=== PATIENT | female | born 1930 | race Caucasian/White ===

== ENCOUNTER 2017-08-12 12:48 | Outpatient (CLI) | payer MEDICARE, MEDICAID ==
--- NOTE | 2017-08-12 17:56 | XRAY Report ---
DATE OF SERVICE: 08/12/2017 EXAM: THREE VIEW THORACIC SPINE CLINICAL INDICATION: Pain, status post fall. FINDINGS: Frontal, lateral, swimmers views of the thoracic spine demonstrate moderate degenerative d isk disease, with degenerative levoscoliosis of the thoracolumbar junction. There is no evidence of compression f racture. No paraspinal hematoma is identified. IMPRESSION: MODERATE DEGENERATIVE DISK DISEASE. NO EVIDENCE OF FRACTURE. TD: 08/12/2017 17:04
== END 2017-08-12 12:49 | disposition home or self-care (01) ==
LOC: DI 12:48
PROVIDERS: ATTEND Family Medicine
DX: M51.34 Other intervertebral disc degeneration, thoracic region (principal); M41.85 Other forms of scoliosis, thoracolumbar region
CPT/HCPCS: 72070

== ENCOUNTER 2018-08-28 12:53 | Outpatient (CLI) | payer MEDICARE, MEDICAID | END 2018-08-28 12:54 | disposition critical access hospital (66) | LOC: EMS 12:53 | PROVIDERS: ATTEND Surgery | DX: S89.92XA Unspecified injury of left lower leg, initial encounter (principal); W01.0XXA Fall on same level from slipping, tripping and stumbling without subsequent striking against object, initial encounter; Y93.01 Activity, walking, marching and hiking; Y92.511 Restaurant or cafe as the place of occurrence of the external cause | CPT/HCPCS: A0425; A0429 ==

== ENCOUNTER 2018-08-28 13:14 | Inpatient (IN) | payer MEDICARE, MEDICAID ==
[2018-08-28 14:33] LABS: BASOPHILS # (AUTO) 0.1 10^3/uL (0.0-0.1); BASOPHILS % (AUTO) 0.6 %; EOSINOPHILS # (AUTO) 0.1 10^3/uL (0.0-0.7); EOSINOPHILS % (AUTO) 0.5 %; HGB - HEMOGLOBIN 12.4 g/dL (12.0-16.0); LYMPHOCYTES # (AUTO) 2.1 10^3/uL (1.5-3.5); LYMPHOCYTES % (AUTO) 13.1 %; MEAN CORPUSCULAR HEMOGLOBIN 27.3 pg (27.0-31.0); MEAN CORPUSCULAR HGB CONC 33.7 g/dL (32.0-36.0); MEAN PLATELET VOLUME 7.1 fL (7.9-10.8); MONOCYTES # (AUTO) 1.1 10^3/uL (0.0-1.0); MONOCYTES % (AUTO) 6.5 %; NEUTROPHILS # (AUTO) 12.9 10^3/uL (1.5-6.6); NEUTROPHILS % (AUTO) 79.3 %; PLT - PLATELET COUNT 628 10^3/uL (130-450); RED BLOOD COUNT 4.54 10^6/uL (4.20-5.40); RED CELL DISTRIBUTION WIDTH 16.1 % (12.0-15.0); WHITE BLOOD COUNT 16.3 x10^3/uL (4.8-10.8)
[2018-08-28 14:45] LABS: CALCIUM 9.9 mg/dL (8.5-10.3); CREATININE 1.1 mg/dL (0.4-1.0)
--- NOTE | 2018-08-28 15:00 | ED Physician Documentation ---
History of Present Illness - Stated complaint Stated Complaint: GLF - Chief complaint Chief Complaint: Trauma Ext - Additonal information Additional information: hx from pt healthy 88 f was head into [place] with friends to celebrate her birthday tripped and landed on L hip pain and unable to move no head neck chest abd injury ]no blood thinners was well prior lives alone Review of Systems Constitutional: denies: Fever Cardiac: denies: Chest pain / pressure Respiratory: denies: Dyspnea GI: denies: Abdominal Pain : reports: Other (2 prior bladder surgeries) Skin: denies: Laceration (s) Musculoskeletal: reports: Joint pain (L hip) Neurologic: denies: Headache, Head injury Endocrine: denies: Easy bruising / bleeding Immunocompromised: denies: Immunocompromised PD PAST MEDICAL HISTORY - Past Medical History Past Medical History: No Cardiovascular: None Respiratory: Pneumonia Neuro: None Endocrine/Autoimmune: None GI: None 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 : Incontinence, Frequency HEENT: Chronic vision loss Psych: None Musculoskeletal: None Derm: None Other Past Medical History: calcium in urine - Past Surgical History Past Surgical History: Yes General: Appendectomy HEENT: Cataracts - Present Medications Home Medications: Ambulatory Orders Medication Instructions Recorded Confirmed Biotin 5,000 mcg PO DAILY 05/10/13 08/28/18 Cholecalciferol (Vitamin D3) 400 unit PO DAILY 05/10/13 08/28/18 [Vitamin D] Dextran 70/Hypromellose 1 each OP DAILY 05/10/13 08/28/18 [Artificial Tears] Lactobacillus Rhamnosus GG 1 each PO DAILY 05/10/13 08/28/18 [Probiotic] Multivitamin [Multivitamins] 1 each PO DAILY 05/10/13 08/28/18 Oregano Oil [Oil of Oregano] 1,500 mg PO DAILY 05/10/13 08/28/18 Ubidecarenone [Coq-10] 100 mg PO DAILY 05/10/13 08/28/18 Vitamin B Complex [B Complex] 1 each PO DAILY 05/10/13 08/28/18 Vitamin E 400 unit PO DAILY 05/10/13 08/28/18 - Allergies Allergies/Adverse Reactions: Allergies Allergy/AdvReac Type Severity Reaction Status Date / Time nitrofurantoin Allergy Rash Verified 08/28/18 13:22 macrocrystalline * [From Macrodantin] - Social History Does the pt smoke?: No Smoking Status: Never smoker Does the pt drink ETOH?: Yes Does the pt have substance abuse?: No - Immunizations Immunizations are current?: No - POLST Patient has POLST: No PD ED PE NORMAL - Vitals Vital signs reviewed: Yes - General General: Alert and oriented X 3 - HEENT HEENT: Atraumatic - Neck Neck: No bony TTP - Cardiac Cardiac: RRR - Respiratory Respiratory: No respiratory distress - Abdomen Abdomen: Soft, Non tender - Extremities Extremities: Other (L hip TTP laterally short and ext rotated, MSV intact) - Neuro Neuro: Alert and oriented X 3, 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, No motor deficit, No sensory deficit, Normal speech Eye Opening: Spontaneous Motor: Obeys Commands Verbal: Oriented GCS Score: 15 Results - Vitals Vitals: Vital Signs - 24 hr 08/28/18 13:15 Temperature 36.1 C L Heart Rate 74 Respiratory 18 Rate Blood Pressure 168/86 H O2 Saturation 99 Oxygen O2 Source Room air - EKG (time done) 1404 Rate: Rate (enter#) (73) Rhythm: NSR, Other (occ PVCs) Ischemia: Non specific changes Other comments: Other comments (artifact) - Labs Labs: Laboratory Tests 08/28/18 08/28/18 08/28/18 14:09 14:09 14:09 WBC 16.3 H RBC 4.54 Hgb 12.4 Hct 36.8 L MCV 81.0 MCH 27.3 MCHC 33.7 RDW 16.1 H Plt Count 628 H MPV 7.1 L Neut # (Auto) 12.9 H Lymph # (Auto) 2.1 [place]hing # (Auto) 1.1 H Eos # (Auto) 0.1 Baso # (Auto) 0.1 Absolute Nucleated RBC 0.00 Nucleated RBC % 0.0 Sodium 137 Potassium 4.2 Chloride 95 L Carbon Dioxide 29 Anion Gap 13.0 BUN 20 Creatinine 1.1 H Estimated GFR (MDRD) 47 L Glucose 102 H Calcium 9.9 Blood Type O POSITIVE Antibody Screen NEGATIVE - Rads (name of study) CXR Radiology: See rad report (chonic lung dz, small right pleural effusion) hip Radiology: See rad report (L femoral neck fx) PD MEDICAL DECISION MAKING - ED course ED course: + hip fx spoke to ortho Dr Maharaj at 1520 spoke to hospitalist at 1540 pt NPO since yesterday pt and friends updated I offered the pt pain medication multiple imes and she declined every time Departure - Departure Disposition: 66 [facility] DC/Xfer Clinical Impression: Hip fracture Qualifiers: Encounter type: initial encounter Fracture type: closed Laterality: left Qualified Code(s): S72.002A - Fracture of unspecified part of neck of left femur, initial encounter for closed fracture Condition: Fair Discharge Date/Time: 08/28/18 17:36
--- NOTE | 2018-08-28 15:05 | XRAY Report ---
Reason: fall L hip short and ext rotated Procedure Date: 08/28/2018 Accession Number: [id number] / [id number] Procedure: XR - Hip w/Pelvis 2-3V LT CPT Code: FULL RESULT: EXAM: LEFT HIP AND PELVIS RADIOGRAPHY EXAM DATE: 08/28/2018 02:53 PM. HISTORY: Left hip pain. COMPARISONS: None. TECHNIQUE: 1 view of the pelvis and 1 view of the hip. FINDINGS: Bones: Evaluation of the left hip is somewhat limited due to internal rotation. Displaced transcervical left femoral neck fracture is suggested. Joints: Minor degenerative changes are seen in the hips. Moderate degenerative changes are noted in the lower lumbar spine. Soft Tissues: Normal. No soft tissue swelling. IMPRESSION: Transcervical left femoral neck fracture suggested. Visualization is somewhat limited due to internal rotation. RADIA
--- NOTE | 2018-08-28 15:07 | XRAY Report ---
Reason: preop Procedure Date: 08/28/2018 Accession Number: [id number] / [id number] Procedure: XR - Chest 1 View X-Ray CPT Code: 50923 FULL RESULT: EXAM: CHEST RADIOGRAPHY. EXAM DATE: 08/28/2018 02:33 PM. CLINICAL HISTORY: Left hip fracture, preoperative evaluation. COMPARISON: Thoracic spine 2 view 08/12/2017 12:59 PM, chest 2 view PA/lateral 05/10/2013 11:25 AM, hip with pelvis 2-3 views 08/28/2018 2:33 PM. TECHNIQUE: 1 view. FINDINGS: Lungs/Pleura: Chronic coarsened interstitial markings, slightly more pronounced compared to 2012. Blunting of the right costophrenic angle consistent with a small right pleural effusion. No pneumothorax is detected. Mediastinum: Within exam limitations, the cardiomediastinal contour is normal. Other: None. IMPRESSION: Coarse interstitial markings most suggestive of chronic lung disease. Interval development of a small right pleural effusion. RADIA
[2018-08-28] MEDS ORDERED: ONDANSETRON 4 MG/2 ML VIAL IVP PRN (16:09)
[2018-08-28] MEDS ORDERED: ZOLPIDEM 5 MG TABLET PO PRN (16:09)
[2018-08-28] MEDS ORDERED: SODIUM CHLORIDE FLUSH 0.9% 10 ML SYRINGE IVP PRN (16:09)
[2018-08-28] MEDS ORDERED: cloNIDine 0.1 MG TABLET PO PRN (16:18)
--- NOTE | 2018-08-28 16:57 | HISTORY & PHYSICAL EXAMINATION ---
Chief Complaint - Chief Complaint Chief Complaint: fall, hip pain History of Present Illness - History of Present Illness HPI Comment/Other: Ms. Lundberg is 88-yrs old female with a PMH significant for vertigo, CKD, breast cancer, status post right mastectomy on 2004, chronic malnutrition, who present ER complain of right hip pain after her fall. Pt report her birthday was yesterday. Today she and her friend come to [employer] restaurant at [place]. She Was tripped over a bbea outside the door, fell onto left hip on concrete. She denies hitting head or other injuries. She also denies loss of conscious when she had a fall. She report she was so painful and she can not move outward rotation of left foot, unable to bear weight. Xray of hip reveals transcervical left femoral neck of fracture. Her lab reveals elevated WBC. Except mild elevated BP, pt is hemodynamically stable. Dr. Maharaj was called and consulted, planned to have surgery on tomorrow. History - Past Medical History Cardiovascular: reports: None Respiratory: reports: Pneumonia Neuro: reports: None Endocrine/Autoimmune: reports: None GI: reports: None ANESTHESIA ATTENDING: reports: None : reports: Incontinence, Frequency HEENT: reports: Chronic vision loss Psych: reports: None Musculoskeletal: reports: None Derm: reports: None MRSA Hx?: No Other Past Medical History: calcium in urine - Past Surgical History General: reports: Appendectomy HEENT: reports: Cataracts - Family & Social History Family History: Mother: , Cancer, Father: , CAD, COPD/Emphysema Family History Comment/Other: pt is living on [place] by her self. she is independent. Social History Notes: she denies alcohol, drug, cigarett smoker - POLST Patient has POLST: No Meds/Allgy - Home Medications Home Medications: Ambulatory Orders Medication Instructions Recorded Confirmed Biotin 5,000 mcg PO DAILY 05/10/13 08/28/18 Cholecalciferol (Vitamin D3) 400 unit PO DAILY 05/10/13 08/28/18 [Vitamin D] Dextran 70/Hypromellose 1 each OP DAILY 05/10/13 08/28/18 [Artificial Tears] Lactobacillus Rhamnosus GG 1 each PO DAILY 05/10/13 08/28/18 [Probiotic] Multivitamin [Multivitamins] 1 each PO DAILY 05/10/13 08/28/18 Oregano Oil [Oil of Oregano] 1,500 mg PO DAILY 05/10/13 08/28/18 Ubidecarenone [Coq-10] 100 mg PO DAILY 05/10/13 08/28/18 Vitamin B Complex [B Complex] 1 each PO DAILY 05/10/13 08/28/18 Vitamin E 400 unit PO DAILY 05/10/13 08/28/18 - Allergies Allergies/Adverse Reactions: Allergies Allergy/AdvReac Type Severity Reaction Status Date / Time nitrofurantoin Allergy Rash Verified 08/28/18 13:22 macrocrystalline * [From Macrodantin] Review of Systems - Constitutional Constitutional: denies: Fatigue, Fever, Chills, Malaise, Weakness, Poor appetite, Diaphoresis, Night sweats - Eyes Eyes: denies: Pain, Irritation, Amaurosis, Blurred vision, Spots in vision, Fi eld loss, Vision loss, Dipolpia - Ears, Nose & Throat Ears, Nose & Throat: denies: Ear pain, Hearing loss, Hearing aids, Tinnitus, Vertigo, Nasal pain, Nasal discharge, Nosebleeds, Nasal obstruction, Nasal congestion, Postnasal drainage, Dentures, Sore throat, Hoarseness, Mouth lesions, Bleeding gums - Cardiovascular Cariovascular: denies: Irregular heart rate, Palpitations, Chest pain, Edema, Lightheadedness, Syncope, Exertional dyspnea, Decr. exercise tolerance - Respiratory Respiratory: denies: Cough, Sputum production, Wheezing, Snoring, Hemoptysis, Orthopnea, SOB at rest, SOB with exertion - Gastrointestinal Gastrointestinal: denies: Abdominal pain, Abdominal distention, Constipation, Diarrhea, Change in bowel habits, Rectal bleeding, Black stools, Bloody stools, Nausea, Vomiting, Bile emesis, Coffee grounds emesis, Reflux/heartburn - Genitourinary Genitourinary: denies: Dysuria, Frequency, Urgency, Hematuria, Incontinence, Flank pain, Nocturia, Urethral discharge - Musculoskeletal Musculoskeletal: reports: Limited range of motion, Joint pain. denies: Muscle pain, Back pain, Muscle aches, Stiffness, Muscle weakness, Gout - Integumentary Integumentary: denies: Rash, Pruritis, Lesions, Dryness, Lumps, Acne, Pigment changes, Nail changes - Neurological Neurological: denies: General weakness, Focal weakness, Headache, Dizziness, Numbness, Memory problems, Pre-existing deficit, Abnormal gait, Seizures, Incoordination, Slurred speech - Psychiatric Psychiatric: denies: Depression, Anxiety, Suicidal, Delusions, Hallucinations, Homicidal - Endocrine Endocrine: denies: Polyuria, Polydypsia, Polyphagia, Intolerance to cold - Hematologic/Lymphatic Hematologic/Lymphatic: denies: Anemia, Bruising, Petechiae, Blood clots, Lymphadenopathy, Bleeding tendencies Prior Level of Functionality: independent Exam - Vital Signs Reviewed Vital Signs: Yes Vital Signs: Vital Signs x48h Temp Pulse Resp BP Pulse Ox 08/28/18 13:15 36.1 C L 74 18 168/86 H 99 - Physical Exam General Appearance: positive: No acute distress, Alert. negative: Lethargic Eyes Bilateral: positive: Normal inspection, PERRL, No lid inflammation, Conjunctivae nml ENT: positive: ENT inspection nml, Pharynx nml, No signs of dehydration. negative: Purulent nasal drainage, Pharyngeal erythema, Oral lesions Neck: positive: Nml inspection, Thyroid nml, No JVD, Trachea midline. negative: Thyromegaly, Lymphadenopathy (R), Lymphadenopathy (L), Stiff neck, Swelling/bruising, Tracheal deviation Respiratory: positive: Chest non-tender, No respiratory distress, Breath sounds nml. negative: Wheezes, Rales, Rhonchi Cardiovascular: positive: Regular rate & rhythm, No murmur, No gallop. negative: Irregularly irregular, Extrasystoles, Tachycardia, PMI displaced laterally, JVD present, Systolic murmur, Diastolic murmur Peripheral Pulses: positive: 2+ Abdomen: positive: Non-tender, No organomegaly, Nml bowel sounds, No distention. negative: Tenderness, Rebound Back: positive: Nml inspection. negative: CVA tenderness (R), CVA tenderness (L) Skin: positive: Color nml, No rash, Warm, Dry. negative: Cyanosis, Diaphoresis, Pallor Extremities: positive: Nml appearance. negative: Non-tender, Full ROM, Pedal edema, Calf tenderness, Joint swelling, Kim's sign/cords Neurologic/Psychiatric: positive: Oriented x3, Sensation nml, Mood/affect nml. negative: Weakness, Sensory loss, Facial droop, Slurred/abnml speech, Depressed mood/affect Sepsis Event Note (H) - Evaluation Current Stage of Sepsis: Ruled out Conclusion/Plan - Problem List (1) Hip fracture Conclusion/Plan: pt had fall, and xray reveals left femoral neck fracture orthopedics was consulted, will followup and plan to have surgery tomorrow. pain control IVF of NS for NPO after midnight pt had no hx of cardiac problem, her revised cardiac risk index for pre- operative risk is low, at 0.4% Qualifiers: Encounter type: initial encounter Fracture type: closed Laterality: left Qualified Code(s): S72.002A - Fracture of unspecified part of neck of left femur, initial encounter for closed fracture (2) CKD (chronic kidney disease) Conclusion/Plan: stable, CKD is stage 3 gently hydration with IVF of NS, when pt is on NPO status hold nephrotoxical agents daily lab monitor (3) HTN (hypertension) Conclusion/Plan: pt has no hx of HTN, today she had slight elevated BP, it may relate to her hip pain pain control PRN of Clonidine vital monitor (4) Chronic vertigo Conclusion/Plan: pt report she had hx of chronic Vertigo, which she state it may contribute to her fall fall precaution Antivert PRN (5) Elevated white blood cell count Conclusion/Plan: pt had elevated WBC to 16, CXR reveal unremarkable, UA is pending. it may relative to today's distress and anxiety from fall. pt denies fever, chill. daily lab monitor, and followup UA (6) Do not intubate, cardiopulmonary resuscitation (CPR)-only code status Conclusion/Plan: pt clearly request DNR - Lab Results Fish Bones: 08/28/18 14:09 08/28/18 14:09 Core Measures - Anticipated LOS I expect patient to be DC'd or transferred within 96 hours.: Yes - DVT/VTE - Prophylaxis VTE/DVT Device ordered at admit?: Yes VTE/DVT Prophylaxis med ordered at admit?: Yes
[2018-08-28] MEDS ORDERED: SODIUM CHLORIDE 0.9% 1,000 ML IV SCH (17:00)
[2018-08-28] MEDS ORDERED: MECLIZINE 12.5 MG TABLET PO PRN (18:26)
[2018-08-28] MEDS: oxyCODONE 5 MG TABLET PO PRN (18:32)
[2018-08-28] MEDS: ACETAMINOPHEN 325 MG TABLET PO PRN ×2 (18:32→23:55)
[2018-08-28] MEDS: SODIUM CHLORIDE 0.9% 1,000 ML IV SCH (18:33)
[2018-08-28] MEDS: SODIUM CHLORIDE FLUSH 0.9% 10 ML SYRINGE IVP SCH ×2 (18:56→23:39)
[2018-08-28 19:04] LABS: BILIRUBIN,URINE NEGATIVE (NEGATIVE); GLUCOSE, URINE (UA) NEGATIVE (NEGATIVE); KETONES,URINE (UA) NEGATIVE (NEGATIVE); LEUKOCYTE ESTERASE, URINE NEGATIVE (NEGATIVE); NITRITE,URINE NEGATIVE (NEGATIVE); OCCULT BLOOD,URINE NEGATIVE (NEGATIVE); PH,URINE 6.5 PH (5.0-7.5); PROTEIN,URINE NEGATIVE (NEGATIVE); UROBILINOGEN,URINE 0.2 (NORMAL) E.U./dL (NORMAL)
[2018-08-28 19:16] LABS: BACTERIA,URINE Many /HPF (None Seen); CLARITY,URINE HAZY (CLEAR); RBC,URINE None Seen /HPF (0-5); SQUAMOUS EPITHELIAL CELL,UR NONE SEEN (<= Few)
[2018-08-28] MEDS: MORPHINE 2 MG/ML CARPUJECT IVP PRN (19:16)
[2018-08-28] MEDS: FAMOTIDINE 20 MG TABLET PO SCH (20:11)
[2018-08-29] MEDS: oxyCODONE 5 MG TABLET PO PRN ×2 (00:08→23:54)
[2018-08-29 06:06] LABS: BASOPHILS # (AUTO) 0.1 10^3/uL (0.0-0.1); BASOPHILS % (AUTO) 0.8 %; EOSINOPHILS # (AUTO) 0.2 10^3/uL (0.0-0.7); EOSINOPHILS % (AUTO) 1.6 %; HGB - HEMOGLOBIN 10.7 g/dL (12.0-16.0); MEAN CORPUSCULAR HEMOGLOBIN 26.3 pg (27.0-31.0); MEAN CORPUSCULAR HGB CONC 31.5 g/dL (32.0-36.0); MEAN CORPUSCULAR VOLUME 83.4 fL (81.0-99.0); MEAN PLATELET VOLUME 7.1 fL (7.9-10.8); MONOCYTES % (AUTO) 8.1 %; NEUTROPHILS # (AUTO) 9.3 10^3/uL (1.5-6.6); NEUTROPHILS % (AUTO) 73.5 %; PLT - PLATELET COUNT 529 10^3/uL (130-450); RED BLOOD COUNT 4.09 10^6/uL (4.20-5.40); RED CELL DISTRIBUTION WIDTH 16.3 % (12.0-15.0); WHITE BLOOD COUNT 12.6 x10^3/uL (4.8-10.8)
[2018-08-29 06:09] LABS: ALBUMIN 2.9 g/dL (3.2-5.5); ALBUMIN/GLOBULIN RATIO 0.9 (1.0-2.2); BILIRUBIN,TOTAL 0.6 mg/dL (0.2-1.0); CALCIUM 8.7 mg/dL (8.5-10.3); CREATININE 1.2 mg/dL (0.4-1.0); TOTAL PROTEIN 6.2 g/dL (6.7-8.2)
[2018-08-29] MEDS: SODIUM CHLORIDE 0.9% 1,000 ML IV SCH ×2 (06:48→20:20)
[2018-08-29] MEDS ORDERED: SODIUM CHLORIDE 0.9% 1,000 ML IV SCH (07:24)
[2018-08-29] MEDS: LACTOBACILLUS RHAMNOSUS GG CAPSULE PO SCH (08:09)
[2018-08-29] MEDS: MULTIVITAMIN TABLET PO SCH (08:10)
[2018-08-29] MEDS: CARBOXYMETHYLCELLULOSE OPHTH DROPS EACHEYE SCH (08:10)
[2018-08-29] MEDS: CHOLECALCIFEROL 400 UNIT TABLET PO SCH (08:10)
[2018-08-29] MEDS: FAMOTIDINE 20 MG TABLET PO SCH (08:10)
[2018-08-29] MEDS: POLYETHYLENE GLYCOL 3350 17 GM PACKET PO SCH (08:11)
[2018-08-29] MEDS: cefTRIAXone 1 GM in SODIUM CHLORIDE 0.9% MINIBAG 100 ML IV SCH (08:17)
[2018-08-29] MEDS: BIOTIN 5000 MCG PO SCH (08:19)
[2018-08-29] MEDS: TOCOPHERYL 400 UNIT CAPSULE PO SCH (08:20)
[2018-08-29] MEDS: SODIUM CHLORIDE FLUSH 0.9% 10 ML SYRINGE IVP SCH ×3 (08:20→23:53)
[2018-08-29] MEDS ORDERED: cefTRIAXone 1 GM VIAL IVP SCH (09:00)
--- NOTE | 2018-08-29 09:38 | ANESTHESIA ---
Pre-Anesthesia VS, & Labs - Diagnosis left hip fracture - Procedure left hip hemiprosthesis Vital Signs: Temp Pulse Resp BP Pulse Ox 36.3 C L 79 20 141/64 H 93 08/29/18 07:37 08/29/18 07:37 08/29/18 07:37 08/29/18 07:37 08/29/18 07:37 Height 5 ft 4 in Weight (kg) 45 kg Body Mass Index 17.0 - NPO >8 hours - Is Patient ?: Not Applicable - Lab Results Current Lab Results: Laboratory Tests 08/29/18 05:46: Sodium 132 L, Potassium 4.3, Chloride 99 L, Carbon Dioxide 25, Anion Gap 8.0, BUN 21 H, Creatinine 1.2 H, Estimated GFR (MDRD) 42 L, Glucose 101 H, Calcium 8.7, Magnesium 2.0, Total Bilirubin 0.6, AST 20, ALT 12, Alkaline Phosphatase 62, Total Protein 6.2 L, Albumin 2.9 L, Globulin 3.3, Albumin/Globulin Ratio 0.9 L 08/29/18 05:46: WBC 12.6 H, RBC 4.09 L, Hgb 10.7 L, Hct 34.1 L, MCV 83.4, MCH 26.3 L, MCHC 31.5 L, RDW 16.3 H, Plt Count 529 H, MPV 7.1 L, Neut # (Auto) 9.3 H , Lymph # (Auto) 2.0, [place] # (Auto) 1.0, Eos # (Auto) 0.2, Baso # (Auto) 0.1, Absolute Nucleated RBC 0.00, Nucleated RBC % 0.0 08/28/18 14:09: Blood Type O POSITIVE, Antibody Screen NEGATIVE 08/28/18 14:09: Sodium 137, Potassium 4.2, Chloride 95 L, Carbon Dioxide 29, Anion Gap 13.0, BUN 20, Creatinine 1.1 H, Estimated GFR (MDRD) 47 L, Glucose 102 H, Calcium 9.9 08/28/18 14:09: WBC 16.3 H, RBC 4.54, Hgb 12.4, Hct 36.8 L, MCV 81.0, MCH 27.3, MCHC 33.7, RDW 16.1 H, Plt Count 628 H, MPV 7.1 L, Neut # (Auto) 12.9 H, Lymph # (Auto) 2.1, [place] # (Auto) 1.1 H, Eos # (Auto) 0.1, Baso # (Auto) 0.1, Absolute Nucleated RBC 0.00, Nucleated RBC % 0.0 Lab results reviewed: Yes Fish Bones: 08/29/18 05:46 08/29/18 05:46 Home Medications and Allergies Active Medications Acetaminophen (Tylenol) 650 mg PO Q4HR PRN PRN Reason: Pain 1 to 4 Last Admin: 08/28/18 23:55 Dose: 650 mg Carboxymethylcellulose (Refresh 1% Ophth Drops) 1 drops EACHEYE DAILY [facility] Last Admin: 08/29/18 08:10 Dose: 1 drops Cholecalciferol (Vitamin D3) 400 unit PO DAILY [facility] Last Admin: 08/29/18 08:10 Dose: 400 unit Clonidine HCl (Catapres) 0.1 mg PO BID PRN PRN Reason: Hypertensive Emergency Enoxaparin Sodium (Lovenox) 30 mg SUBQ DAILY [facility] Famotidine (Pepcid) 20 mg PO DAILY [facility] Last Admin: 08/29/18 08:10 Dose: 20 mg Sodium Chloride (Normal Saline 0.9%) 1,000 mls @ 100 mls/hr IV .Q10H [facility] Ceftriaxone Sodium 1 gm/ (Sodium Chloride) 100 mls @ 200 mls/hr IV Q24H [facility] Last Infusion: 08/29/18 08:47 Dose: Infused Lactobacillus Rhamnosus (Culturelle) 1 cap PO DAILY [facility] Last Admin: 08/29/18 08:09 Dose: 1 cap Meclizine HCl (Antivert) 12.5 mg PO Q6HR PRN PRN Reason: Dizziness Morphine Sulfate (Morphine (Carpuject)) 2 mg IVP Q2HR PRN PRN Reason: Pain 8 to 10 Last Admin: 08/28/18 19:16 Dose: 2 mg Multivitamins (Theragran) 1 tab PO DAILY [facility] Last Admin: 08/29/18 08:10 Dose: 1 tab Ondansetron HCl (Zofran Inj) 4 mg IVP Q6HR PRN PRN Reason: Nausea / Vomiting Oxycodone HCl (Roxicodone) 5 mg PO Q4HR PRN PRN Reason: Pain 5 to 7 Last Admin: 08/29/18 00:08 Dose: 5 mg Patient Own Med( (Biotin 5,000 Mcg)) 1 each PO DAILY [facility] Last Admin: 08/29/18 08:19 Dose: Not Given Patient Own Med ( (Vitamin B Complex)) 1 each PO DAILY [facility] Last Admin: 08/29/18 08:19 Dose: Not Given Polyethylene Glycol (Miralax) 17 gm PO DAILY [facility] Last Admin: 08/29/18 08:11 Dose: 17 gm Sodium Chloride (Normal Saline Flush 0.9%) 10 ml IVP PRN PRN PRN Reason: NEEDED PER PROVIDER ORDERS Last Admin: 08/28/18 18:33 Dose: 10 ml Sodium Chloride (Normal Saline Flush 0.9%) 10 ml IVP 0100,0900,1700 [facility] Last Admin: 08/29/18 08:20 Dose: Not Given Vitamin E (Vitamin E) 400 unit PO DAILY [facility] Last Admin: 08/29/18 08:20 Dose: Not Given Zolpidem Tartrate (Ambien) 5 mg PO QPM PRN PRN Reason: Insomnia Biotin 5,000 mcg PO DAILY 05/10/13 Cholecalciferol (Vitamin D3) [Vitamin D] 400 unit PO DAILY 05/10/13 Dextran 70/Hypromellose [Artificial Tears] 1 each OP DAILY 05/10/13 Lactobacillus Rhamnosus GG [Probiotic] 1 each PO DAILY 05/10/13 Multivitamin [Multivitamins] 1 each PO DAILY 05/10/13 Oregano Oil [Oil of Oregano] 1,500 mg PO DAILY 05/10/13 Ubidecarenone [Coq-10] 100 mg PO DAILY 05/10/13 Vitamin B Complex [B Complex] 1 each PO DAILY 05/10/13 Vitamin E 400 unit PO DAILY 05/10/13 Allergies/Adverse Reactions: Allergies Allergy/AdvReac Type Severity Reaction Status Date / Time nitrofurantoin Allergy Rash Verified 08/28/18 13:22 macrocrystalline * [From Macrodantin] Anes History & Medical History - Anesthetic History Anesthesia Complications: reports: No previous complications Family history of Anesthesia Complications: Denies Family history of Malignant Hyperthermia: Denies - Medical History Cardiovascular: reports: None Pulmonary: reports: Pneumonia Gastrointestinal: reports: None Urinary: reports: Incontinence, Frequency Neuro: reports: None Musculoskeletal: reports: None Endocrine/Autoimmune: reports: None Blood Disorders: reports: None Skin: reports: None Smoking Status: Never smoker Other Past Medical History: calcium in urine - Surgical History General: Appendectomy Eyes Ears Nose Throat (EENT): Cataracts Urologic: Bladder surgery Exam General: Alert, Oriented x3, Cooperative, No acute distress Dental: Other (crowns) Mouth Openin Fingerbreadth Neck Mobility: Normal Mallampati classification: II Thyromental Distance: 4-6 cm Respiratory: Lungs clear, Normal breath sounds, No respiratory distress, No a ccessory muscle use Cardiovascular: Regular rate, Normal S1, Normal S2, No murmurs Mental/Cognitive Status: Alert/Oriented X3, Normal for patient Plan Anesthesia Type: General Consent for Procedure(s) Verified and Reviewed: No Code Status: Attempt Resuscitation ASA classification: 2-Mild systemic disease Is this case an emergency?: No
[2018-08-29] MEDS: MORPHINE 2 MG/ML CARPUJECT IVP PRN (09:47)
[2018-08-29] MEDS ORDERED: BUPIVACAINE 0.5%-EPI 1:200000 PF 30 ML VIAL ONE (10:48)
[2018-08-29] MEDS ORDERED: BUPIVACAINE 0.5%-EPI 1:200000 PF 30 ML VIAL SUBQ ONE ×2 (12:03)
[2018-08-29] MEDS ORDERED: SUGAMMADEX 200 MG/2 ML VIAL IVP ONE (12:53)
--- NOTE | 2018-08-29 12:53 | OPERATIVE REPORT ---
Operative Report - General Admit Date: 08/28/18 Procedure Date: 08/29/18 Planned Procedure: endoprosthetic replacement of left hip Pre-Op Diagnosis: left hip femoral neck fracture Procedure Performed: endoprosthetic replacement of left hip Post Op Diagnosis: same - Procedure Note Primary Surgeon: jemima Anesthesia Provider: meli Anesthesia Technique: General ET tube Estimated Blood Loss (mL): 40
[2018-08-29] MEDS ORDERED: LACTATED RINGERS 1,000 ML IV ONE ×2 (12:55→13:01)
--- NOTE | 2018-08-29 13:50 | PROVIDER PROGRESS NOTE ---
Subjective - Prog Note Date Prog Note Date: 08/29/18 - Subjective Pt reports feeling: Improved Subjective: pt report surgeon already saw her and will have surgery today morning. She report she had pain at her hip only when she moved her leg. She denies chest pain, fever, chill, SOB. Current Medications - Current Medications Current Medications: Active Medications Acetaminophen (Tylenol) 650 mg PO Q4HR PRN PRN Reason: Pain 1 to 4 Last Admin: 08/28/18 23:55 Dose: 650 mg Carboxymethylcellulose (Refresh 1% Ophth Drops) 1 drops EACHEYE DAILY [facility] Last Admin: 08/29/18 08:10 Dose: 1 drops Cholecalciferol (Vitamin D3) 400 unit PO DAILY [facility] Last Admin: 08/29/18 08:10 Dose: 400 unit Clonidine HCl (Catapres) 0.1 mg PO BID PRN PRN Reason: Hypertensive Emergency Famotidine (Pepcid) 20 mg PO DAILY [facility] Last Admin: 08/29/18 08:10 Dose: 20 mg Sodium Chloride (Normal Saline 0.9%) 1,000 mls @ 100 mls/hr IV .Q10H [facility] Ceftriaxone Sodium 1 gm/ (Sodium Chloride) 100 mls @ 200 mls/hr IV Q24H [facility] Last Infusion: 08/29/18 08:47 Dose: Infused Lactobacillus Rhamnosus (Culturelle) 1 cap PO DAILY [facility] Last Admin: 08/29/18 08:09 Dose: 1 cap Meclizine HCl (Antivert) 12.5 mg PO Q6HR PRN PRN Reason: Dizziness Morphine Sulfate (Morphine (Carpuject)) 2 mg IVP Q2HR PRN PRN Reason: Pain 8 to 10 Last Admin: 08/29/18 09:47 Dose: 2 mg Multivitamins (Theragran) 1 tab PO DAILY [facility] Last Admin: 08/29/18 08:10 Dose: 1 tab Ondansetron HCl (Zofran Inj) 4 mg IVP Q6HR PRN PRN Reason: Nausea / Vomiting Last Admin: 08/29/18 09:55 Dose: 4 mg Oxycodone HCl (Roxicodone) 5 mg PO Q4HR PRN PRN Reason: Pain 5 to 7 Last Admin: 08/29/18 00:08 Dose: 5 mg Patient Own Med( (Biotin 5,000 Mcg)) 1 each PO DAILY [facility] Last Admin: 08/29/18 08:19 Dose: Not Given Patient Own Med ( (Vitamin B Complex)) 1 each PO DAILY [facility] Last Admin: 08/29/18 08:19 Dose: Not Given Patient Own Med ( Oregano Oil [Oil Of Oregano] 1,500 Mg) 1 each PO DAILY [facility] Patient Own Med ( Ubidecarenone [Coq- 10] 100 Mg) 1 each PO DAILY [facility] Polyethylene Glycol (Miralax) 17 gm PO DAILY [facility] Last Admin: 08/29/18 08:11 Dose: 17 gm Sodium Chloride (Normal Saline Flush 0.9%) 10 ml IVP PRN PRN PRN Reason: NEEDED PER PROVIDER ORDERS Last Admin: 08/28/18 18:33 Dose: 10 ml Sodium Chloride (Normal Saline Flush 0.9%) 10 ml IVP 0100,0900,1700 [facility] Last Admin: 08/29/18 08:20 Dose: Not Given Vitamin E (Vitamin E) 400 unit PO DAILY [facility] Last Admin: 08/29/18 08:20 Dose: Not Given Zolpidem Tartrate (Ambien) 5 mg PO QPM PRN PRN Reason: Insomnia Biotin 5,000 mcg PO DAILY 05/10/13 Cholecalciferol (Vitamin D3) [Vitamin D] 400 unit PO DAILY 05/10/13 Dextran 70/Hypromellose [Artificial Tears] 1 each OP DAILY 05/10/13 Lactobacillus Rhamnosus GG [Probiotic] 1 each PO DAILY 05/10/13 Multivitamin [Multivitamins] 1 each PO DAILY 05/10/13 Oregano Oil [Oil of Oregano] 1,500 mg PO DAILY 05/10/13 Ubidecarenone [Coq-10] 100 mg PO DAILY 05/10/13 Vitamin B Complex [B Complex] 1 each PO DAILY 05/10/13 Vitamin E 400 unit PO DAILY 05/10/13 Objective - Vital Signs/Intake & Output Vital Signs: Vital Signs x48h Temp Pulse Pulse Resp BP BP Pulse Ox 08/29/18 13:40 36.8 C 65 14 132/49 H 100 08/29/18 13:35 36.6 C 68 15 142/53 H 100 08/29/18 13:30 36.6 C 66 15 136/44 H 100 08/29/18 13:25 36.5 C 68 15 114/74 100 08/29/18 13:20 36.6 C 68 14 135/56 H 99 08/29/18 13:15 36.7 C 65 15 127/55 L 99 08/29/18 13:10 36.5 C 66 14 135/61 H 100 08/29/18 13:05 36.5 C 66 15 135/61 H 100 08/29/18 13:00 36.5 C 65 15 133/53 H 100 08/29/18 12:55 36.8 C 67 12 121/50 L 99 08/29/18 10:32 36.6 C 72 20 111/48 L 92 08/29/18 07:37 36.3 C L 79 20 141/64 H 93 Intake & Output: Intake & Output 08/26/18 08/27/18 08/28/18 08/29/18 23:59 23:59 23:59 23:59 Intake Total 800 1018.75 Output Total 825 325 Balance -25 693.75 - Objective General Appearance: positive: No acute distress, Alert. negative: Lethargic Eyes Bilateral: positive: Normal inspection, PERRL, No lid inflammation, Conjunctivae nml ENT: positive: ENT inspection nml, Pharynx nml, No signs of dehydration. negative: Purulent nasal drainage, Pharyngeal erythema, Oral lesions Neck: positive: Nml inspection, Thyroid nml, No JVD, Trachea midline. negative: Thyromegaly, Lymphadenopathy (R), Lymphadenopathy (L), Stiff neck, Swelling/bruising, Tracheal deviation Respiratory: positive: Chest non-tender, No respiratory distress, Breath sounds nml. negative: Wheezes, Rales, Rhonchi Cardiovascular: positive: Regular rate & rhythm, No murmur, No gallop. negative: Irregularly irregular, Extrasystoles, Tachycardia, Bradycardia, JVD present, Systolic murmur, Diastolic murmur Peripheral Pulses: 2+ Radial (R), 2+ Radial (L), 2+ Dorsalis pedis (R), 2+ Dorsalis pedis (L) Abdomen: positive: Non-tender, No organomegaly, Nml bowel sounds, No distention. negative: Tenderness, Guarding, Rebound Back: positive: Nml inspection. negative: CVA tenderness (R), CVA tenderness (L) Skin: positive: Color nml, No rash, Warm, Dry. negative: Cyanosis, Diaphoresis, Pallor Extremities: positive: Nml appearance. negative: Calf tenderness, Joint swelling, Kim's sign/cords Neurologic/Psychiatric: positive: Oriented x3, Sensation nml, Mood/affect nml. negative: Weakness, Sensory loss, Facial droop, Slurred/abnml speech, Depressed mood/affect - Lab Results Fish Bones: 08/29/18 05:46 08/29/18 05:46 Other Labs: Lab Results x24hrs 08/29/18 08/29/18 08/28/18 Range/Units 05:46 05:46 18:45 WBC 12.6 H (4.8-10.8) x10^3/uL RBC 4.09 L (4.20-5.40) 10^6/uL Hgb 10.7 L (12.0-16.0) g/dL Hct 34.1 L (37.0-47.0) % MCV 83.4 (81.0-99.0) fL MCH 26.3 L (27.0-31.0) pg MCHC 31.5 L (32.0-36.0) g/dL RDW 16.3 H (12.0-15.0) % Plt Count 529 H (130-450) 10^3/uL MPV 7.1 L (7.9-10.8) fL Neut # (Auto) 9.3 H (1.5-6.6) 10^3/uL Lymph # (Auto) 2.0 (1.5-3.5) 10^3/uL [place] # (Auto) 1.0 (0.0-1.0) 10^3/uL Eos # (Auto) 0.2 (0.0-0.7) 10^3/uL Baso # (Auto) 0.1 (0.0-0.1) 10^3/uL Absolute Nucleated RBC 0.00 x10^3/uL Nucleated RBC % 0.0 /100WBC Sodium 132 L (135-145) mmol/L Potassium 4.3 (3.5-5.0) mmol/L Chloride 99 L (101-111) mmol/L Carbon Dioxide 25 (21-32) mmol/L Anion Gap 8.0 (6-13) BUN 21 H (6-20) mg/dL Creatinine 1.2 H (0.4-1.0) mg/dL Estimated GFR (MDRD) 42 L (>89) Glucose 101 H (70-100) mg/dL Calcium 8.7 (8.5-10.3) mg/dL Magnesium 2.0 (1.7-2.8) mg/dL Total Bilirubin 0.6 (0.2-1.0) mg/dL AST 20 (10-42) IU/L ALT 12 (10-60) IU/L Alkaline Phosphatase 62 (42-121) IU/L Total Protein 6.2 L (6.7-8.2) g/dL Albumin 2.9 L (3.2-5.5) g/dL Globulin 3.3 (2.1-4.2) g/dL Albumin/Globulin Ratio 0.9 L (1.0-2.2) Urine Color LT. YELLOW Urine Clarity HAZY (CLEAR) Urine pH 6.5 (5.0-7.5) PH Ur Specific [place] 1.015 (1.002-1.030) Urine Protein NEGATIVE (NEGATIVE) mg/dL Urine Glucose (UA) NEGATIVE (NEGATIVE) mg/dL Urine Ketones NEGATIVE (NEGATIVE) mg/dL Urine Occult Blood NEGATIVE (NEGATIVE) Urine Nitrite NEGATIVE (NEGATIVE) Urine Bilirubin NEGATIVE (NEGATIVE) Urine Urobilinogen 0.2 (NORMAL) (NORMAL) E.U./dL Ur Leukocyte Esterase NEGATIVE (NEGATIVE) Urine RBC None Seen (0-5) /HPF Urine WBC 0-3 (0-5) /HPF Ur Squamous Epith Cells NONE SEEN (<= Few) Urine Bacteria Many H (None Seen) /HPF Urine Culture Comments INDICATED Blood Type Antibody Screen 08/28/18 08/28/18 08/28/18 Range/Units 14:09 14:09 14:09 WBC 16.3 H (4.8-10.8) x10^3/uL RBC 4.54 (4.20-5.40) 10^6/uL Hgb 12.4 (12.0-16.0) g/dL Hct 36.8 L (37.0-47.0) % MCV 81.0 (81.0-99.0) fL MCH 27.3 (27.0-31.0) pg MCHC 33.7 (32.0-36.0) g/dL RDW 16.1 H (12.0-15.0) % Plt Count 628 H (130-450) 10^3/uL MPV 7.1 L (7.9-10.8) fL Neut # (Auto) 12.9 H (1.5-6.6) 10^3/uL Lymph # (Auto) 2.1 (1.5-3.5) 10^3/uL [place] # (Auto) 1.1 H (0.0-1.0) 10^3/uL Eos # (Auto) 0.1 (0.0-0.7) 10^3/uL Baso # (Auto) 0.1 (0.0-0.1) 10^3/uL Absolute Nucleated RBC 0.00 x10^3/uL Nucleated RBC % 0.0 /100WBC Sodium 137 (135-145) mmol/L Potassium 4.2 (3.5-5.0) mmol/L Chloride 95 L (101-111) mmol/L Carbon Dioxide 29 (21-32) mmol/L Anion Gap 13.0 (6-13) BUN 20 (6-20) mg/dL Creatinine 1.1 H (0.4-1.0) mg/dL Estimated GFR (MDRD) 47 L (>89) Glucose 102 H (70-100) mg/dL Calcium 9.9 (8.5-10.3) mg/dL Magnesium (1.7-2.8) mg/dL Total Bilirubin (0.2-1.0) mg/dL AST (10-42) IU/L ALT (10-60) IU/L Alkaline Phosphatase (42-121) IU/L Total Protein (6.7-8.2) g/dL Albumin (3.2-5.5) g/dL Globulin (2.1-4.2) g/dL Albumin/Globulin Ratio (1.0-2.2) Urine Color Urine Clarity (CLEAR) Urine pH (5.0-7.5) PH Ur Specific [place] (1.002-1.030) Urine Protein (NEGATIVE) mg/dL Urine Glucose (UA) (NEGATIVE) mg/dL Urine Ketones (NEGATIVE) mg/dL Urine Occult Blood (NEGATIVE) Urine Nitrite (NEGATIVE) Urine Bilirubin (NEGATIVE) Urine Urobilinogen (NORMAL) E.U./dL Ur Leukocyte Esterase (NEGATIVE) Urine RBC (0-5) /HPF Urine WBC (0-5) /HPF Ur Squamous Epith Cells (<= Few) Urine Bacteria (None Seen) /HPF Urine Culture Comments Blood Type O POSITIVE Antibody Screen NEGATIVE ABX Reporting Has patient been on IV antibiotics over the past 48 hours?: Yes Sepsis Event Note (H) - Evaluation Current Stage of Sepsis: Ruled out Assessment/Plan - Problem List (1) Hip fracture Impression: pt has planned surgery today, will followup continue pain control pt had fall, and xray reveals left femoral neck fracture orthopedics was consulted, will followup and plan to have surgery tomorrow. pain control IVF of NS for NPO after midnight pt had no hx of cardiac problem, her revised cardiac risk index for pre- operative risk is low, at 0.4% Qualifiers: Encounter type: initial encounter Fracture type: closed Laterality: left Qualified Code(s): S72.002A - Fracture of unspecified part of neck of left femur, initial encounter for closed fracture (2) CKD (chronic kidney disease) Conclusion/Plan: stable, at CKD stage 3 continue IVF of NS lab monitor stable, CKD is stage 3 gently hydration with IVF of NS, when pt is on NPO status hold nephrotoxical agents daily lab monitor (3) HTN (hypertension) Conclusion/Plan: stable, continue vital monitor pt has no hx of HTN, today she had slight elevated BP, it may relate to her hip pain pain control PRN of Clonidine vital monitor (4) Chronic vertigo Conclusion/Plan: stable, continue: fall precaution, Antivert PRN pt report she had hx of chronic Vertigo, which she state it may contribute to her fall fall precaution Antivert PRN (5) Elevated white blood cell count Conclusion/Plan: better but still at WBC at 12. pt is found to have UTI, treat with Rocephin pt had elevated WBC to 16, CXR reveal unremarkable, UA is pending. it may relative to today's distress and anxiety from fall. pt denies fever, chill. daily lab monitor, and followup UA (6) UTI pt has elevated WBC, UA reveals many bacterial UTI treated with Rocephin, followup UA culture Qualifiers: Encounter type: initial encounter Fracture type: closed Laterality: left Qualified Code(s): S72.002A - Fracture of unspecified part of neck of left femur, initial encounter for closed fracture
--- NOTE | 2018-08-29 14:10 | XRAY Report ---
Reason: post op Procedure Date: 08/29/2018 Accession Number: [id number] / [id number] Procedure: XR - Hip w/Pelvis 2-3V LT CPT Code: FULL RESULT: EXAM: LEFT HIP AND PELVIS RADIOGRAPHY EXAM DATE: 08/29/2018 01:37 PM. HISTORY: Post op. COMPARISONS: Hip with pelvis 2-3 views left 08/28/2018 2:33 PM. TECHNIQUE: 1 view of the pelvis and 1 view of the hip. FINDINGS: There has been interval left total hip arthroplasty without evidence of hardware failure and in appropriate position. Lucency below the distal tip of the prosthetic stem is noted, correlate to surgical technique. Soft Tissues: 16 cm diameter gaseous lucency projecting over the lower abdomen, incompletely imaged without bowel pattern should be correlated to possible surgical pneumoperitoneum. IMPRESSION: Status post left total hip arthroplasty. RADIA
[2018-08-29] MEDS ORDERED: ENOXAPARIN 30 MG/0.3 ML SYRINGE SUBQ SCH (17:00)
[2018-08-29] MEDS: CALCIUM CARBONATE CHEW 500 MG TABLET PO SCH (20:21)
[2018-08-29 21:51] LABS: HGB - HEMOGLOBIN 11.4 g/dL (12.0-16.0)
--- NOTE | 2018-08-30 02:25 | OPERATIVE REPORT ---
DATE OF SERVICE: 08/29/2018 Physician: Brandee Maharaj MD PREOPERATIVE DIAGNOSIS: Displaced left femoral neck fracture. POSTOPERATIVE DIAGNOSIS: Displaced left femoral neck fracture. PROCEDURE PERFORMED: Cemented left endoprosthetic hip replacement. OPERATING SURGEON: Brandee Maharaj MD ANESTHESIA: General by Margarita Dolan CRNA. INDICATIONS FOR SURGERY: Patient is an 88-year-old female who suffered a ground level fall injuring her hip last evening and admitted to the hospital with hip pain, unable to ambulate. She states that the injury was a simple fall. The patient lives alone, but has friends locally and a son who lives elsewhere. The patient has previously been an ambulator using a walker, sometimes has weakness, but has no mental decline and states that she desires to have her hip fixed. Her past medical history an d exam are documented in her record. DESCRIPTION OF OPERATIVE PROCEDURE: The patient was taken to the operating room, given a general ane sthetic in the supine position. She was positioned right lateral decubitus with the left hip up and sterilely prepped and draped in standard fashion. After a surgical timeout, a posterior approach was made to the hip with an approximately 6 inch incision and dissection through short rotators of the p osterior hip after division of fascia katelin in that area. The hip was entered, hematoma evacuated, th e femoral head removed. The trial reduction of a head component was trialed and 46 mm was the most a ppropriate component size. Femoral neck osteotomy was made, after which reaming and broaching were u ndertaken to accommodate a small size 7 Echo stem. This was trialed with heads and a standard neck l ength and was very satisfactory restoring muscle tension, length of the limb and stability. The tria l components were removed. The joint and the femur were flushed thoroughly. A cement-retaining plug was placed in the femur and an Echo size 7 stem was [address] in place. The endoprosthetic head was assembled with a 46 mm outer diameter and once inserted on the stem, was reduced into the cleaned aditi tabulum and once again, stability was excellent, alignment restored and range of motion stable. The area was irrigated thoroughly. Closure was with FiberWire closure of short rotators followed by inte rrupted FiberWire closure of fascial tissue, Vicryl closure of subcutaneous tissue, Monocryl running subcuticular closure and sterile dressing applied. The patient was then taken to recovery room in st able condition. ESTIMATED BLOOD LOSS: About 40 mL. COMPLICATIONS: None. COUNTS: Sponge and needle counts correct. IMPLANTS USED: Arie [employer] Echo size 7 femoral head with standard offset, size 46 mm endoprostheti c head. TD: 08/29/2018 16:14
[2018-08-30] MEDS: SODIUM CHLORIDE 0.9% 1,000 ML IV SCH (03:24)
[2018-08-30 05:54] LABS: BASOPHILS # (AUTO) 0.1 10^3/uL (0.0-0.1); BASOPHILS % (AUTO) 0.4 %; EOSINOPHILS # (AUTO) 0.1 10^3/uL (0.0-0.7); EOSINOPHILS % (AUTO) 0.5 %; LYMPHOCYTES # (AUTO) 1.7 10^3/uL (1.5-3.5); LYMPHOCYTES % (AUTO) 9.2 %; MEAN CORPUSCULAR HEMOGLOBIN 26.7 pg (27.0-31.0); MEAN CORPUSCULAR HGB CONC 31.5 g/dL (32.0-36.0); MEAN CORPUSCULAR VOLUME 84.9 fL (81.0-99.0); MEAN PLATELET VOLUME 7.4 fL (7.9-10.8); MONOCYTES # (AUTO) 1.5 10^3/uL (0.0-1.0); MONOCYTES % (AUTO) 7.9 %; NEUTROPHILS # (AUTO) 15.2 10^3/uL (1.5-6.6); PLT - PLATELET COUNT 508 10^3/uL (130-450); RED CELL DISTRIBUTION WIDTH 16.1 % (12.0-15.0); WHITE BLOOD COUNT 18.5 x10^3/uL (4.8-10.8)
[2018-08-30 06:09] LABS: ALBUMIN 2.8 g/dL (3.2-5.5); ALBUMIN/GLOBULIN RATIO 0.8 (1.0-2.2); BILIRUBIN,TOTAL 0.7 mg/dL (0.2-1.0); CALCIUM 8.2 mg/dL (8.5-10.3); CREATININE 1.2 mg/dL (0.4-1.0); TOTAL PROTEIN 6.3 g/dL (6.7-8.2)
[2018-08-30] MEDS ORDERED: SODIUM CHLORIDE 0.9% 1,000 ML IV SCH (07:16)
--- NOTE | 2018-08-30 07:54 | PROVIDER PROGRESS NOTE ---
Subjective - General Admit Date: 08/28/18 Procedure Date: 08/29/18 Post Op Days: 1 Procedure Performed: left hip endoprosthesis - Review of Systems Wound/Incisions: positive: Dressing dry and intact General: positive: Fatigue Musculoskeletal: positive: Joint pain Objective - Patient Data Reviewed Vital Signs: Yes Vital Signs: Vital Signs x48h Temp Pulse Resp BP Pulse Ox 08/30/18 04:05 37.2 C 74 16 112/44 L 99 Weight: Weight 08/28/18 08/29/18 08/30/18 23:59 23:59 23:59 Weight (kg) 45 kg Intake & Output: Intake and Output Totals x24h 08/28/18 08/29/18 08/30/18 23:59 23:59 23:59 Intake Total 800 2726.75 1250 Output Total 825 850 250 Balance -25 1876.75 1000 - Lab Results Lab Results: 08/30/18 05:25 08/30/18 05:25 Other Lab Results: Lab Results x24hrs 08/30/18 08/30/18 08/29/18 Range/Units 05:25 05:25 21:40 WBC 18.5 H (4.8-10.8) x10^3/uL RBC 4.10 L (4.20-5.40) 10^6/uL Hgb 11.0 L 11.4 L (12.0-16.0) g/dL Hct 34.8 L 34.0 L (37.0-47.0) % MCV 84.9 (81.0-99.0) fL MCH 26.7 L (27.0-31.0) pg MCHC 31.5 L (32.0-36.0) g/dL RDW 16.1 H (12.0-15.0) % Plt Count 508 H (130-450) 10^3/uL MPV 7.4 L (7.9-10.8) fL Neut # (Auto) 15.2 H (1.5-6.6) 10^3/uL Lymph # (Auto) 1.7 (1.5-3.5) 10^3/uL [place] # (Auto) 1.5 H (0.0-1.0) 10^3/uL Eos # (Auto) 0.1 (0.0-0.7) 10^3/uL Baso # (Auto) 0.1 (0.0-0.1) 10^3/uL Absolute Nucleated RBC 0.01 x10^3/uL Nucleated RBC % 0.0 /100WBC Sodium 132 L (135-145) mmol/L Potassium 4.9 (3.5-5.0) mmol/L Chloride 99 L (101-111) mmol/L Carbon Dioxide 23 (21-32) mmol/L Anion Gap 10.0 (6-13) BUN 20 (6-20) mg/dL Creatinine 1.2 H (0.4-1.0) mg/dL Estimated GFR (MDRD) 42 L (>89) Glucose 111 H (70-100) mg/dL Calcium 8.2 L (8.5-10.3) mg/dL Total Bilirubin 0.7 (0.2-1.0) mg/dL AST 35 (10-42) IU/L ALT 18 (10-60) IU/L Alkaline Phosphatase 63 (42-121) IU/L Total Protein 6.3 L (6.7-8.2) g/dL Albumin 2.8 L (3.2-5.5) g/dL Globulin 3.5 (2.1-4.2) g/dL Albumin/Globulin Ratio 0.8 L (1.0-2.2) - Imaging Results Radiology Imaging: positive: EMP read indepedently - Current Medications Current Medications: Current Medications Generic Name Dose Route Start Last Admin Trade Name Jjq PRN Reason Stop Dose Admin Acetaminophen 650 mg 08/28/18 16:09 08/28/18 23:55 Tylenol PO 650 mg Q4HR PRN Administration Pain 1 to 4 Calcium Carbonate/Glycine 500 mg 08/29/18 21:00 08/29/18 20:21 Tums PO Not Given BID [facility]TE Carboxymethylcellulose 1 drops 08/29/18 09:00 08/29/18 08:10 Refresh 1% Ophth Drops EACHEYE 1 drops DAILY [facility] Administration Cholecalciferol 400 unit 08/29/18 09:00 08/29/18 08:10 Vitamin D3 PO 400 unit DAILY [facility] Administration Famotidine 20 mg 08/28/18 21:00 08/29/18 08:10 Pepcid PO 20 mg DAILY [facility] Administration Ceftriaxone Sodium 1 gm/ 100 mls @ 200 mls/hr 08/29/18 08:00 08/29/18 08:47 Sodium Chloride IV Infused Q24H [facility] Infusion Lactobacillus Rhamnosus 1 cap 08/29/18 09:00 08/29/18 08:09 Culturelle PO 1 cap DAILY [facility] Administration Morphine Sulfate 2 mg 08/28/18 16:09 08/29/18 09:47 Morphine (Carpuject) IVP 2 mg Q2HR PRN Administration Pain 8 to 10 Multivitamins 1 tab 08/29/18 09:00 08/29/18 08:10 Theragran PO 1 tab DAILY [facility] Administration Ondansetron HCl 4 mg 08/28/18 16:09 08/29/18 09:55 Zofran Inj IVP 4 mg Q6HR PRN Administration Nausea / Vomiting Oxycodone HCl 5 mg 08/28/18 16:09 08/29/18 23:54 Roxicodone PO 5 mg Q4HR PRN Administration Pain 5 to 7 Patient Own Med( 1 each 08/29/18 09:00 08/29/18 08:19 Biotin 5,000 Mcg) PO Not Given DAILY [facility]TE Patient Own Med ( 1 each 08/29/18 09:00 08/29/18 08:19 Vitamin B Complex) PO Not Given DAILY [facility] Polyethylene Glycol 17 gm 08/29/18 09:00 08/29/18 08:11 Miralax PO 17 gm DAILY [facility] Administration Sodium Chloride 10 ml 08/28/18 16:09 08/28/18 18:33 Normal Saline Flush 0.9% IVP 10 ml PRN PRN Administration NEEDED PER PROVIDER ORDERS Sodium Chloride 10 ml 08/28/18 17:00 08/29/18 23:53 Normal Saline Flush 0.9% IVP 10 ml 0100,0900,1700 GE[facility]GETTE Administration Vitamin E 400 unit 08/29/18 09:00 08/29/18 08:20 Vitamin E PO Not Given DAILY [facility] - Physical Exam Wound/Incisions: positive: Dressing dry and intact Extremities: positive: Joint swelling Neurologic/Psychiatric: positive: Oriented x3, CN's nml (2-12), Motor nml, Sensation nml, Mood/affect nml Impression/Plan - Problem List Problem List: POD #1: Pt is to begin PT. She is weak and has hip pain. will follow
[2018-08-30] MEDS: cefTRIAXone 1 GM in SODIUM CHLORIDE 0.9% MINIBAG 100 ML IV SCH (08:53)
[2018-08-30] MEDS: CALCIUM CARBONATE CHEW 500 MG TABLET PO SCH ×2 (08:53→20:24)
[2018-08-30] MEDS: FAMOTIDINE 20 MG TABLET PO SCH (08:54)
[2018-08-30] MEDS: POLYETHYLENE GLYCOL 3350 17 GM PACKET PO SCH (08:54)
[2018-08-30] MEDS: LACTOBACILLUS RHAMNOSUS GG CAPSULE PO SCH (08:54)
[2018-08-30] MEDS: CHOLECALCIFEROL 400 UNIT TABLET PO SCH (08:54)
[2018-08-30] MEDS: MULTIVITAMIN TABLET PO SCH ×2 (08:57→16:05)
[2018-08-30] MEDS: CARBOXYMETHYLCELLULOSE OPHTH DROPS EACHEYE SCH (09:00)
[2018-08-30] MEDS: OREGANO OIL 1500 MG PO SCH (09:01)
[2018-08-30] MEDS: UBIDECARENONE 100 MG PO SCH (09:01)
[2018-08-30] MEDS: BIOTIN 5000 MCG PO SCH (09:03)
[2018-08-30] MEDS: SODIUM CHLORIDE FLUSH 0.9% 10 ML SYRINGE IVP SCH ×2 (09:03→16:06)
[2018-08-30] MEDS: TOCOPHERYL 400 UNIT CAPSULE PO SCH (09:05)
[2018-08-30] MEDS ORDERED: ALBUTEROL NEB 2.5 MG/3 ML INH PRN (09:11)
--- NOTE | 2018-08-30 09:11 | CONSULTATION NOTE ---
DATE OF SERVICE: 08/29/2018 Physician: Brandee Maharaj MD CHIEF COMPLAINT: Left hip pain. HISTORY OF PRESENT ILLNESS: Ari Lundberg is an 88-year-old female who has medical problems, and i s followed by Dr. Coffman for these problems, most currently being worked up for possible myeloma with unexplained excessive weight loss. She sustained a ground level fall at [facility] on in the afternoon, and was brought to the hospital with a displaced femoral neck fracture. Her prior medical history, review of systems, medications, and allergies are all documented in her spital record. PHYSICAL EXAMINATION GENERAL: The patient's physical exam is remarkable for a cachectic and very thin-appearing 88-year-o ld female who is alert and oriented and does not have severe pain in her hip, but is unable to move h er hip without severe pain. Her upper extremities appear normal with full motion. CHEST/LUNGS: Clear. ABDOMEN: Soft and very noticeably thin and scaphoid. EXTREMITIES: Remarkable for the left lower extremity is shortened, externally rotated, with no edema . Neurovascular exam is normal. IMAGES: X-rays are reviewed and the patient has a displaced femoral neck fracture and an acetabulum that appears to show no evidence of arthritis. Her bone density is diminished with type A bone in th e proximal femur. IMPRESSION: Unstable and displaced femoral neck fracture. RECOMMENDATIONS: Bipolar replacement. The decision making around this patient's choice of treatment was pursued in conjunction with the patient and with a phone call to Dr. Coffman who confirmed that t he patient's health is not well, and his opinion was that she should have surgery in spite of ongoing workup for extreme weight loss and possibly malignancy. The patient's decision was absolutely to pr oceed with surgery, which was scheduled for 08/29/2018. TD: 08/30/2018 08:28
[2018-08-30] MEDS ORDERED: IPRATROPIUM/ALBUTEROL 3 ML NEB INH PRN (09:12)
--- NOTE | 2018-08-30 10:18 | XRAY Report ---
Reason: SOB Procedure Date: 08/30/2018 Accession Number: [id number] / [id number] Procedure: XR - Chest 1 View X-Ray CPT Code: 88431 FULL RESULT: EXAM: CHEST RADIOGRAPHY EXAM DATE: 08/30/2018 07:47 AM. CLINICAL HISTORY: Shortness of breath. COMPARISON: CHEST 1 VIEW 08/28/2018 2:33 PM. TECHNIQUE: 1 view. FINDINGS: Lungs/Pleura: This is a small right pleural effusion with stable coarsened interstitial lung markings. No pneumothorax. Mediastinum: Within exam limitations, the cardiomediastinal contour is normal. Other: None. IMPRESSION: Stable exam with right pleural effusion and coarse interstitial lung markings. RADIA
--- NOTE | 2018-08-30 10:46 | PROVIDER PROGRESS NOTE ---
Subjective - Prog Note Date Prog Note Date: 08/30/18 - Subjective Pt reports feeling: Worse Subjective: pt report she does not feel well, but she can not point where she is not feeling well. She denies fever, chill, chest pain, headache, abdominal. she report she has wet cough. Current Medications - Current Medications Current Medications: Active Medications Acetaminophen (Tylenol) 650 mg PO Q4HR PRN PRN Reason: Pain 1 to 4 Last Admin: 08/28/18 23:55 Dose: 650 mg Albuterol () 2.5 mg INH RTQ4H PRN PRN Reason: Wheezing Albuterol/Ipratropium (Duoneb) 3 ml INH Q4HR PRN PRN Reason: Wheezing Calcium Carbonate/Glycine (Tums) 500 mg PO BID [facility] Last Admin: 08/30/18 08:53 Dose: 500 mg Carboxymethylcellulose (Refresh 1% Ophth Drops) 1 drops EACHEYE DAILY [facility] Last Admin: 08/30/18 09:00 Dose: 1 drops Cholecalciferol (Vitamin D3) 400 unit PO DAILY [facility] Last Admin: 08/30/18 08:54 Dose: 400 unit Clonidine HCl (Catapres) 0.1 mg PO BID PRN PRN Reason: Hypertensive Emergency Famotidine (Pepcid) 20 mg PO DAILY [facility] Last Admin: 08/30/18 08:54 Dose: 20 mg Guaifenesin (Mucinex) 600 mg PO BID [facility] Ceftriaxone Sodium 1 gm/ (Sodium Chloride) 100 mls @ 200 mls/hr IV Q24H [facility] Last Infusion: 08/30/18 09:52 Dose: Infused Lactobacillus Rhamnosus (Culturelle) 1 cap PO DAILY [facility] Last Admin: 08/30/18 08:54 Dose: 1 cap Meclizine HCl (Antivert) 12.5 mg PO Q6HR PRN PRN Reason: Dizziness Morphine Sulfate (Morphine (Carpuject)) 2 mg IVP Q2HR PRN PRN Reason: Pain 8 to 10 Last Admin: 08/29/18 09:47 Dose: 2 mg Multivitamins (Theragran) 1 tab PO DAILY [facility] Last Admin: 08/30/18 08:57 Dose: 1 tab Ondansetron HCl (Zofran Inj) 4 mg IVP Q6HR PRN PRN Reason: Nausea / Vomiting Last Admin: 08/29/18 09:55 Dose: 4 mg Oxycodone HCl (Roxicodone) 5 mg PO Q4HR PRN PRN Reason: Pain 5 to 7 Last Admin: 08/29/18 23:54 Dose: 5 mg Patient Own Med( (Biotin 5,000 Mcg)) 1 each PO DAILY [facility] Last Admin: 08/30/18 09:03 Dose: Not Given Patient Own Med ( (Vitamin B Complex)) 1 each PO DAILY [facility] Last Admin: 08/30/18 09:03 Dose: Not Given Patient Own Med ( Oregano Oil [Oil Of Oregano] 1,500 Mg) 1 each PO DAILY [facility] Last Admin: 08/30/18 09:01 Dose: Not Given Patient Own Med ( Ubidecarenone [Coq- 10] 100 Mg) 1 each PO DAILY [facility] Last Admin: 08/30/18 09:01 Dose: Not Given Polyethylene Glycol (Miralax) 17 gm PO DAILY [facility] Last Admin: 08/30/18 08:54 Dose: 17 gm Sodium Chloride (Normal Saline Flush 0.9%) 10 ml IVP PRN PRN PRN Reason: NEEDED PER PROVIDER ORDERS Last Admin: 08/28/18 18:33 Dose: 10 ml Sodium Chloride (Normal Saline Flush 0.9%) 10 ml IVP 0100,0900,1700 [facility] Last Admin: 08/30/18 09:03 Dose: Not Given Vitamin E (Vitamin E) 400 unit PO DAILY [facility] Last Admin: 08/30/18 09:05 Dose: Not Given Zolpidem Tartrate (Ambien) 5 mg PO QPM PRN PRN Reason: Insomnia Biotin 5,000 mcg PO DAILY 05/10/13 Cholecalciferol (Vitamin D3) [Vitamin D] 400 unit PO DAILY 05/10/13 Dextran 70/Hypromellose [Artificial Tears] 1 each OP DAILY 05/10/13 Lactobacillus Rhamnosus GG [Probiotic] 1 each PO DAILY 05/10/13 Multivitamin [Multivitamins] 1 each PO DAILY 05/10/13 Oregano Oil [Oil of Oregano] 1,500 mg PO DAILY 05/10/13 Ubidecarenone [Coq-10] 100 mg PO DAILY 05/10/13 Vitamin B Complex [B Complex] 1 each PO DAILY 05/10/13 Vitamin E 400 unit PO DAILY 09/19/13 Objective - Vital Signs/Intake & Output Reviewed Vital Signs: Yes Vital Signs: Vital Signs x48h Temp Pulse Resp BP Pulse Ox 08/30/18 08:24 36.3 C L 66 20 130/48 L 97 08/30/18 04:05 37.2 C 74 16 112/44 L 99 Intake & Output: Intake & Output 08/27/18 08/28/18 08/29/18 08/30/18 23:59 23:59 23:59 23:59 Intake Total 800 2726.75 2470 Output Total 825 850 250 Balance -25 1876.75 2220 - Objective General Appearance: positive: No acute distress, Alert. negative: Lethargic Eyes Bilateral: positive: Normal inspection, PERRL, No lid inflammation, Conjunctivae nml ENT: positive: ENT inspection nml, Pharynx nml, No signs of dehydration. negative: Purulent nasal drainage, Pharyngeal erythema, Oral lesions Neck: positive: Nml inspection, Thyroid nml, No JVD, Trachea midline. negative: Thyromegaly, Lymphadenopathy (R), Lymphadenopathy (L), Stiff neck, Swelling/bruising, Tracheal deviation Respiratory: positive: Chest non-tender, No respiratory distress. negative: Wheezes, Rales Cardiovascular: positive: Regular rate & rhythm, No murmur, No gallop. negative: Irregularly irregular, Extrasystoles, Tachycardia, Bradycardia, JVD present, Systolic murmur, Diastolic murmur Peripheral Pulses: 2+ Radial (R), 2+ Radial (L), 2+ Dorsalis pedis (R), 2+ Dorsalis pedis (L) Abdomen: positive: Non-tender, No organomegaly, Nml bowel sounds, No distention. negative: Tenderness, Guarding, Rebound Back: positive: Nml inspection. negative: CVA tenderness (R), CVA tenderness (L) Skin: positive: Color nml, No rash, Warm, Dry. negative: Cyanosis, Diaphoresis, Pallor Extremities: positive: Non-tender. negative: Calf tenderness, Joint swelling, Kim's sign/cords Neurologic/Psychiatric: positive: Oriented x3, Sensation nml, Mood/affect nml. negative: Weakness, Sensory loss, Facial droop, Slurred/abnml speech, Depressed mood/affect - Lab Results Fish Bones: 08/30/18 05:25 08/30/18 05:25 Other Labs: Lab Results x24hrs 08/30/18 08/30/18 08/29/18 Range/Units 05:25 05:25 21:40 WBC 18.5 H (4.8-10.8) x10^3/uL RBC 4.10 L (4.20-5.40) 10^6/uL Hgb 11.0 L 11.4 L (12.0-16.0) g/dL Hct 34.8 L 34.0 L (37.0-47.0) % MCV 84.9 (81.0-99.0) fL MCH 26.7 L (27.0-31.0) pg MCHC 31.5 L (32.0-36.0) g/dL RDW 16.1 H (12.0-15.0) % Plt Count 508 H (130-450) 10^3/uL MPV 7.4 L (7.9-10.8) fL Neut # (Auto) 15.2 H (1.5-6.6) 10^3/uL Lymph # (Auto) 1.7 (1.5-3.5) 10^3/uL [place] # (Auto) 1.5 H (0.0-1.0) 10^3/uL Eos # (Auto) 0.1 (0.0-0.7) 10^3/uL Baso # (Auto) 0.1 (0.0-0.1) 10^3/uL Absolute Nucleated RBC 0.01 x10^3/uL Nucleated RBC % 0.0 /100WBC Sodium 132 L (135-145) mmol/L Potassium 4.9 (3.5-5.0) mmol/L Chloride 99 L (101-111) mmol/L Carbon Dioxide 23 (21-32) mmol/L Anion Gap 10.0 (6-13) BUN 20 (6-20) mg/dL Creatinine 1.2 H (0.4-1.0) mg/dL Estimated GFR (MDRD) 42 L (>89) Glucose 111 H (70-100) mg/dL Calcium 8.2 L (8.5-10.3) mg/dL Total Bilirubin 0.7 (0.2-1.0) mg/dL AST 35 (10-42) IU/L ALT 18 (10-60) IU/L Alkaline Phosphatase 63 (42-121) IU/L Total Protein 6.3 L (6.7-8.2) g/dL Albumin 2.8 L (3.2-5.5) g/dL Globulin 3.5 (2.1-4.2) g/dL Albumin/Globulin Ratio 0.8 L (1.0-2.2) ABX Reporting Has patient been on IV antibiotics over the past 48 hours?: Yes Sepsis Event Note (H) - Evaluation Current Stage of Sepsis: Sepsis Possible source of Sepsis: positive: Genitourinary - Sepsis Criteria Sepsis Criteria: WBC count greater than 12,000 or less than 4000 Assessment/Plan - Problem List (1) Hip fracture Impression: 08/30/18 status post day one after hip repair surgery PT/OT continue pain control start DVT prophylaxis pt has planned surgery today, will followup continue pain control pt had fall, and xray reveals left femoral neck fracture orthopedics was consulted, will followup and plan to have surgery tomorrow. pain control IVF of NS for NPO after midnight pt had no hx of cardiac problem, her revised cardiac risk index for pre- operative risk is low, at 0.4% Qualifiers: Encounter type: initial encounter Fracture type: closed Laterality: left Qualified Code(s): S72.002A - Fracture of unspecified part of neck of left femur, initial encounter for closed fracture (2) CKD (chronic kidney disease) Conclusion/Plan: 08/30/18 stable, continue lab monitor, hold nephrotoxical agents stable, at CKD stage 3 continue IVF of NS lab monitor stable, CKD is stage 3 gently hydration with IVF of NS, when pt is on NPO status hold nephrotoxical agents daily lab monitor (3) HTN (hypertension) Conclusion/Plan: stable, continue vital monitor pt has no hx of HTN, today she had slight elevated BP, it may relate to her hip pain pain control PRN of Clonidine vital monitor (4) Chronic vertigo Conclusion/Plan: stable, continue: fall precaution, Antivert PRN pt report she had hx of chronic Vertigo, which she state it may contribute to her fall fall precaution Antivert PRN (5) Elevated white blood cell count Conclusion/Plan: 08/30/18 elevated to 18, no fever, chill order CXR, will followup treat underline of UTI with Rocephin continue lab and vital monitor better but still at WBC at 12. pt is found to have UTI, treat with Rocephin pt had elevated WBC to 16, CXR reveal unremarkable, UA is pending. it may relative to today's distress and anxiety from fall. pt denies fever, chill. daily lab monitor, and followup UA (6) UTI 08/30/18 continue antibiotics pt has elevated WBC, UA reveals many bacterial UTI treated with Rocephin, followup UA culture (7) cough good lung sound but pt present wet cough order CXR, reveals with stable right pleural effusion, and course interstitial lung disease/markings hold IVF of NS Albuterol/duoneb PRN supple O2 as needed order incentive spectrometry Qualifiers: Encounter type: initial encounter Fracture type: closed Laterality: left Qualified Code(s): S72.002A - Fracture of unspecified part of neck of left f emur, initial encounter for closed fracture
[2018-08-30] MEDS: guaiFENesin 600 MG TABLET PO SCH ×2 (10:49→20:23)
[2018-08-30] MEDS: MEGESTROL 400 MG/10 ML UDC PO SCH (12:24)
[2018-08-30] MEDS: ENOXAPARIN 30 MG/0.3 ML SYRINGE SUBQ SCH (12:24)
[2018-08-30] MEDS: MULTIVITAMIN W/IRON, MINERALS 15 ML PO SCH (16:05)
[2018-08-30] MEDS: ACETAMINOPHEN 325 MG TABLET PO PRN (16:06)
[2018-08-31 05:36] LABS: BASOPHILS # (AUTO) 0.1 10^3/uL (0.0-0.1); BASOPHILS % (AUTO) 0.5 %; EOSINOPHILS # (AUTO) 0.3 10^3/uL (0.0-0.7); EOSINOPHILS % (AUTO) 1.6 %; HGB - HEMOGLOBIN 9.8 g/dL (12.0-16.0); LYMPHOCYTES % (AUTO) 10.7 %; MEAN CORPUSCULAR HEMOGLOBIN 26.7 pg (27.0-31.0); MEAN CORPUSCULAR HGB CONC 31.7 g/dL (32.0-36.0); MEAN CORPUSCULAR VOLUME 84.3 fL (81.0-99.0); MEAN PLATELET VOLUME 7.3 fL (7.9-10.8); MONOCYTES # (AUTO) 1.6 10^3/uL (0.0-1.0); MONOCYTES % (AUTO) 8.5 %; NEUTROPHILS % (AUTO) 78.7 %; PLT - PLATELET COUNT 449 10^3/uL (130-450); RED BLOOD COUNT 3.65 10^6/uL (4.20-5.40); RED CELL DISTRIBUTION WIDTH 16.1 % (12.0-15.0); WHITE BLOOD COUNT 19.1 x10^3/uL (4.8-10.8)
[2018-08-31 05:50] LABS: ALBUMIN 2.5 g/dL (3.2-5.5); ALBUMIN/GLOBULIN RATIO 0.7 (1.0-2.2); BILIRUBIN,TOTAL 0.6 mg/dL (0.2-1.0); CALCIUM 8.9 mg/dL (8.5-10.3); TOTAL PROTEIN 6.2 g/dL (6.7-8.2)
[2018-08-31 06:05] LABS: DIFFERENTIAL COMMENT MANUAL=AUTO DIFF; PLATELET ESTIMATE, MANUAL NORMAL (130-450,000) (NORMAL); RBC MORPHOLOGY (MULTIPLE) NORMAL APPEARANCE (NORMAL)
[2018-08-31 07:44] LABS: MEAN RETIC VALUE 112.8; RED BLOOD COUNT 3.7 10^6/uL (4.20-5.40)
[2018-08-31] MEDS: cefTRIAXone 1 GM in SODIUM CHLORIDE 0.9% MINIBAG 100 ML IV SCH (08:08)
[2018-08-31] MEDS: SODIUM CHLORIDE FLUSH 0.9% 10 ML SYRINGE IVP SCH ×3 (08:11→18:54)
[2018-08-31] MEDS: ENOXAPARIN 30 MG/0.3 ML SYRINGE SUBQ SCH (08:12)
[2018-08-31] MEDS: MULTIVITAMIN W/IRON, MINERALS 15 ML PO SCH ×2 (08:12→09:21)
[2018-08-31] MEDS: POLYETHYLENE GLYCOL 3350 17 GM PACKET PO SCH (08:12)
[2018-08-31] MEDS: MULTIVITAMIN TABLET PO SCH (08:13)
[2018-08-31] MEDS: CHOLECALCIFEROL 400 UNIT TABLET PO SCH (08:13)
[2018-08-31] MEDS: LACTOBACILLUS RHAMNOSUS GG CAPSULE PO SCH (08:13)
[2018-08-31] MEDS: guaiFENesin 600 MG TABLET PO SCH ×2 (08:13→20:42)
[2018-08-31] MEDS: FAMOTIDINE 20 MG TABLET PO SCH (08:13)
[2018-08-31] MEDS: CARBOXYMETHYLCELLULOSE OPHTH DROPS EACHEYE SCH (08:13)
[2018-08-31] MEDS: CALCIUM CARBONATE CHEW 500 MG TABLET PO SCH ×3 (08:13→21:14)
[2018-08-31] MEDS: BIOTIN 5000 MCG PO SCH (08:14)
[2018-08-31] MEDS: OREGANO OIL 1500 MG PO SCH (08:14)
[2018-08-31] MEDS: MEGESTROL 400 MG/10 ML UDC PO SCH (08:14)
[2018-08-31] MEDS: UBIDECARENONE 100 MG PO SCH (08:14)
[2018-08-31] MEDS: TOCOPHERYL 400 UNIT CAPSULE PO SCH (08:14)
[2018-08-31 08:35] LABS: FERRITIN 119.1 ng/mL (11.0-306.8)
--- NOTE | 2018-08-31 08:35 | PROVIDER PROGRESS NOTE ---
Subjective - General Admit Date: 08/28/18 Procedure Date: 08/29/18 Post Op Days: 2 Procedure Performed: left hip endoprosthesis - Review of Systems Wound/Incisions: positive: Dressing dry and intact General: positive: Fatigue Musculoskeletal: positive: Joint pain Objective - Patient Data Reviewed Vital Signs: Yes Vital Signs: Vital Signs x48h Temp Pulse Resp BP Pulse Ox 08/31/18 07:59 36.5 C 82 22 134/51 H 96 Intake & Output: Intake and Output Totals x24h 08/29/18 08/30/18 08/31/18 23:59 23:59 23:59 Intake Total 2726.75 2790 410 Output Total 850 795 700 Balance 1876.75 1994 - Lab Results Lab Results: 08/31/18 05:25 08/31/18 05:25 Other Lab Results: Lab Results x24hrs 08/31/18 08/31/18 08/31/18 Range/Units 07:35 07:35 05:25 WBC (4.8-10.8) x10^3/uL RBC 3.70 L (4.20-5.40) 10^6/uL Hgb (12.0-16.0) g/dL Hct (37.0-47.0) % MCV (81.0-99.0) fL MCH (27.0-31.0) pg MCHC (32.0-36.0) g/dL RDW (12.0-15.0) % Plt Count (130-450) 10^3/uL MPV (7.9-10.8) fL Reticulocyte % (Auto) 0.91 (0.5-2.3) % Neut # (Auto) (1.5-6.6) 10^3/uL Lymph # (Auto) (1.5-3.5) 10^3/uL [place] # (Auto) (0.0-1.0) 10^3/uL Eos # (Auto) (0.0-0.7) 10^3/uL Baso # (Auto) (0.0-0.1) 10^3/uL Absolute Nucleated RBC x10^3/uL Band Neuts % (Manual) Abnorm Lymph % (Manual) Nucleated RBC % /100WBC Neutrophils # (Manual) Lymphocytes # (Manual) Monocytes # (Manual) Eosinophils # (Manual) Basophils # (Manual) Differential Comment Platelet Estimate (NORMAL) RBC Morph Micro Appear (NORMAL) Absolute Retic 0.034 (0.020-0.110) 10^6/uL Sodium 135 (135-145) mmol/L Potassium 4.5 (3.5-5.0) mmol/L Chloride 102 (101-111) mmol/L Carbon Dioxide 26 (21-32) mmol/L Anion Gap 7.0 (6-13) BUN 21 H (6-20) mg/dL Creatinine 1.0 (0.4-1.0) mg/dL Estimated GFR (MDRD) 52 L (>89) Glucose 127 H (70-100) mg/dL Calcium 8.9 (8.5-10.3) mg/dL Total Bilirubin 0.6 (0.2-1.0) mg/dL AST 29 (10-42) IU/L ALT 14 (10-60) IU/L Alkaline Phosphatase 61 (42-121) IU/L Lactate Dehydrogenase 127 (91-225) IU/L Total Protein 6.2 L (6.7-8.2) g/dL Albumin 2.5 L (3.2-5.5) g/dL Globulin 3.7 (2.1-4.2) g/dL Albumin/Globulin Ratio 0.7 L (1.0-2.2) 08/31/18 Range/Units 05:25 WBC 19.1 H (4.8-10.8) x10^3/uL RBC 3.65 L (4.20-5.40) 10^6/uL Hgb 9.8 L (12.0-16.0) g/dL Hct 30.8 L (37.0-47.0) % MCV 84.3 (81.0-99.0) fL MCH 26.7 L (27.0-31.0) pg MCHC 31.7 L (32.0-36.0) g/dL RDW 16.1 H (12.0-15.0) % Plt Count 449 (130-450) 10^3/uL MPV 7.3 L (7.9-10.8) fL Reticulocyte % (Auto) (0.5-2.3) % Neut # (Auto) 15.0 H (1.5-6.6) 10^3/uL Lymph # (Auto) 2.0 (1.5-3.5) 10^3/uL [place] # (Auto) 1.6 H (0.0-1.0) 10^3/uL Eos # (Auto) 0.3 (0.0-0.7) 10^3/uL Baso # (Auto) 0.1 (0.0-0.1) 10^3/uL Absolute Nucleated RBC 0.00 x10^3/uL Band Neuts % (Manual) Not Reportable Abnorm Lymph % (Manual) Not Reportable Nucleated RBC % 0.0 /100WBC Neutrophils # (Manual) Not Reportable Lymphocytes # (Manual) Not Reportable Monocytes # (Manual) Not Reportable Eosinophils # (Manual) Not Reportable Basophils # (Manual) Not Reportable Differential Comment MANUAL=AUTO DIFF Platelet Estimate NORMAL (130-450,000) (NORMAL) RBC Morph Micro Appear NORMAL APPEARANCE (NORMAL) Absolute Retic (0.020-0.110) 10^6/uL Sodium (135-145) mmol/L Potassium (3.5-5.0) mmol/L Chloride (101-111) mmol/L Carbon Dioxide (21-32) mmol/L Anion Gap (6-13) BUN (6-20) mg/dL Creatinine (0.4-1.0) mg/dL Estimated GFR (MDRD) (>89) Glucose (70-100) mg/dL Calcium (8.5-10.3) mg/dL Total Bilirubin (0.2-1.0) mg/dL AST (10-42) IU/L ALT (10-60) IU/L Alkaline Phosphatase (42-121) IU/L Lactate Dehydrogenase (91-225) IU/L Total Protein (6.7-8.2) g/dL Albumin (3.2-5.5) g/dL Globulin (2.1-4.2) g/dL Albumin/Globulin Ratio (1.0-2.2) - Current Medications Current Medications: Current Medications Generic Name Dose Route Start Last Admin Trade Name Freq PRN Reason Stop Dose Admin Acetaminophen 650 mg 08/28/18 16:09 08/30/18 16:06 Tylenol PO 650 mg Q4HR PRN Administration Pain 1 to 4 Calcium Carbonate/Glycine 500 mg 08/29/18 21:00 08/31/18 08:13 Tums PO 500 mg BID [facility] Administration Carboxymethylcellulose 1 drops 08/29/18 09:00 08/31/18 08:13 Refresh 1% Ophth Drops EACHEYE 1 drops DAILY [facility] Administration Cholecalciferol 400 unit 08/29/18 09:00 08/31/18 08:13 Vitamin D3 PO 400 unit DAILY [facility] Administration Enoxaparin Sodium 30 mg 08/30/18 11:00 08/31/18 08:12 Lovenox SUBQ 30 mg DAILY [facility] Administration Famotidine 20 mg 08/28/18 21:00 08/31/18 08:13 Pepcid PO 20 mg DAILY [facility] Administration Guaifenesin 600 mg 08/30/18 10:00 08/31/18 08:13 Mucinex PO 600 mg BID [facility] Administration Ceftriaxone Sodium 1 gm/ 100 mls @ 200 mls/hr 08/29/18 08:00 08/31/18 08:08 Sodium Chloride IV 200 mls/hr Q24H [facility] Administration Lactobacillus Rhamnosus 1 cap 08/29/18 09:00 08/31/18 08:13 Culturelle PO 1 cap DAILY [facility] Administration Megestrol Acetate 400 mg 08/30/18 12:00 08/31/18 08:14 Megace PO 400 mg DAILY [facility] Administration Multivitamins 1 tab 08/29/18 09:00 08/31/18 08:13 Theragran PO 1 tab DAILY [facility] Administration Multivitamins/Folic Acid/Vitamin C 15 ml 08/30/18 16:00 08/30/18 16:05 Centrum PO 1 tab DAILY [facility] Administration Ondansetron HCl 4 mg 08/28/18 16:09 08/29/18 09:55 Zofran Inj IVP 4 mg Q6HR PRN Administration Nausea / Vomiting Oxycodone HCl 5 mg 08/28/18 16:09 08/29/18 23:54 Roxicodone PO 5 mg Q4HR PRN Administration Pain 5 to 7 Patient Own Med( 1 each 08/29/18 09:00 08/31/18 08:14 Biotin 5,000 Mcg) PO Not Given DAILY [facility] Patient Own Med ( 1 each 08/29/18 09:00 08/31/18 08:14 Vitamin B Complex) PO Not Given DAILY [facility] Patient Own Med ( 1 each 08/30/18 09:00 08/31/18 08:14 Oregano Oil [Oil Of PO Not Given Oregano] 1,500 Mg) DAILY [facility] Patient Own Med ( 1 each 08/30/18 09:00 08/31/18 08:14 Ubidecarenone [Coq- PO Not Given 10] 100 Mg) DAILY [facility] Polyethylene Glycol 17 gm 08/29/18 09:00 08/31/18 08:12 Miralax PO 17 gm DAILY [facility] Administration Sodium Chloride 10 ml 08/28/18 16:09 08/28/18 18:33 Normal Saline Flush 0.9% IVP 10 ml PRN PRN Administration NEEDED PER PROVIDER ORDERS Sodium Chloride 10 ml 08/28/18 17:00 08/31/18 08:11 Normal Saline Flush 0.9% IVP 10 ml 0100,0900,1700 [facility] Administration Vitamin E 400 unit 08/29/18 09:00 08/31/18 08:14 Vitamin E PO Not Given DAILY [facility] - Physical Exam Wound/Incisions: positive: Dressing dry and intact Extremities: positive: Joint swelling Neurologic/Psychiatric: positive: Motor nml, Sensation nml, Mood/affect nml Impression/Plan - Problem List Problem List: POD #2 Healing well PT advancing as expected Plan SNF tomorrow Dressing to be changed prior to SNF Walker and continued FWB RTC in 2 wks. DVT prophylaxis with ASA
[2018-08-31 08:43] LABS: % IRON SATURATION 2 % (20-50); IRON 6 ug/dL (28-170); TOTAL IRON BINDING CAPACITY 251 ug/dL (250-450); TRANSFERRIN 179 mg/dL (192-382)
[2018-08-31] MEDS: DOCUSATE SODIUM 250 MG CAPSULE PO SCH (11:22)
[2018-08-31] MEDS: SENNA 8.6 MG TABLET PO SCH (11:22)
[2018-08-31] MEDS: oxyCODONE 5 MG TABLET PO PRN (11:22)
[2018-08-31] MEDS: ASPIRIN EC 325 MG TABLET PO SCH (13:17)
[2018-08-31] MEDS ORDERED: FERRIC GLUCONATE 62.5 MG/5 ML VIAL IVP ONE (16:09)
--- NOTE | 2018-08-31 16:11 | PROVIDER PROGRESS NOTE ---
Subjective - Prog Note Date Prog Note Date: 08/31/18 - Subjective Pt reports feeling: Improved Subjective: pt report her pain is better controlled, and cough is better. She denies fever, chill, chest pain. pt report she did have leukocytosis about one years. Her PCP Dr. Coffman was scheduled to have PET scan for her on yesterday, but she missed the schedule because she is at hospital now for hip repair. Pt state she will see PCP again to reschedule to have PET scan. Objective - Vital Signs/Intake & Output Reviewed Vital Signs: Yes Intake & Output: Intake & Output 08/28/18 08/29/18 08/30/18 08/31/18 23:59 23:59 23:59 23:59 Intake Total 800 2726.75 2790 810 Output Total 825 635 021 9853 Balance -25 1876.75 1994 - Objective General Appearance: positive: No acute distress, Alert. negative: Lethargic Eyes Bilateral: positive: Normal inspection, PERRL, No lid inflammation, Conjunctivae nml ENT: positive: ENT inspection nml, Pharynx nml, No signs of dehydration. negative: Purulent nasal drainage, Pharyngeal erythema, Oral lesions Neck: positive: Nml inspection, Thyroid nml, No JVD, Trachea midline. negative: Thyromegaly, Lymphadenopathy (R), Lymphadenopathy (L), Stiff neck, Swelling/bruising, Tracheal deviation Respiratory: positive: Chest non-tender, No respiratory distress. negative: Wheezes, Rales, Rhonchi Cardiovascular: positive: Regular rate & rhythm, No murmur, No gallop. negative: Irregularly irregular, Extrasystoles, Tachycardia, Bradycardia, JVD present, Systolic murmur, Diastolic murmur Peripheral Pulses: 2+ Radial (R), 2+ Radial (L), 2+ Dorsalis pedis (R), 2+ Dorsalis pedis (L) Abdomen: positive: Non-tender, No organomegaly, Nml bowel sounds, No distention. negative: Tenderness, Guarding, Rebound Back: positive: Nml inspection. negative: CVA tenderness (R), CVA tenderness (L) Skin: positive: Color nml, No rash, Warm, Dry. negative: Cyanosis, Diaphoresis, Pallor Extremities: positive: Non-tender. negative: Calf tenderness, Joint swelling, Kim's sign/cords Neurologic/Psychiatric: positive: Oriented x3, Sensation nml, Mood/affect nml. negative: Weakness, Sensory loss, Facial droop, Slurred/abnml speech, Depressed mood/affect - Lab Results Fish Bones: 08/31/18 05:25 08/31/18 05:25 Other Labs: Lab Results x24hrs 08/31/18 08/31/18 08/31/18 Range/Units 07:35 07:35 07:35 WBC (4.8-10.8) x10^3/uL RBC (4.20-5.40) 10^6/uL Hgb (12.0-16.0) g/dL Hct (37.0-47.0) % MCV (81.0-99.0) fL MCH (27.0-31.0) pg MCHC (32.0-36.0) g/dL RDW (12.0-15.0) % Plt Count (130-450) 10^3/uL MPV (7.9-10.8) fL Reticulocyte % (Auto) (0.5-2.3) % Neut # (Auto) (1.5-6.6) 10^3/uL Lymph # (Auto) (1.5-3.5) 10^3/uL [place] # (Auto) (0.0-1.0) 10^3/uL Eos # (Auto) (0.0-0.7) 10^3/uL Baso # (Auto) (0.0-0.1) 10^3/uL Absolute Nucleated RBC x10^3/uL Band Neuts % (Manual) Abnorm Lymph % (Manual) Nucleated RBC % /100WBC Neutrophils # (Manual) Lymphocytes # (Manual) Monocytes # (Manual) Eosinophils # (Manual) Basophils # (Manual) Differential Comment Platelet Estimate (NORMAL) RBC Morph Micro Appear (NORMAL) Absolute Retic (0.020-0.110) 10^6/uL Sodium (135-145) mmol/L Potassium (3.5-5.0) mmol/L Chloride (101-111) mmol/L Carbon Dioxide (21-32) mmol/L Anion Gap (6-13) BUN (6-20) mg/dL Creatinine (0.4-1.0) mg/dL Estimated GFR (MDRD) (>89) Glucose (70-100) mg/dL Calcium (8.5-10.3) mg/dL Iron 6 L (28-170) ug/dL TIBC 251 (250-450) ug/dL % Saturation 2 L (20-50) % Transferrin 179 L (192-382) mg/dL Ferritin 119.1 (11.0-306.8) ng/mL Total Bilirubin (0.2-1.0) mg/dL AST (10-42) IU/L ALT (10-60) IU/L Alkaline Phosphatase (42-121) IU/L Lactate Dehydrogenase 127 (91-225) IU/L Total Protein (6.7-8.2) g/dL Albumin (3.2-5.5) g/dL Globulin (2.1-4.2) g/dL Albumin/Globulin Ratio (1.0-2.2) Vitamin B12 996 H (180-914) pg/mL 08/31/18 08/31/18 08/31/18 Range/Units 07:35 05:25 05:25 WBC 19.1 H (4.8-10.8) x10^3/uL RBC 3.70 L 3.65 L (4.20-5.40) 10^6/uL Hgb 9.8 L (12.0-16.0) g/dL Hct 30.8 L (37.0-47.0) % MCV 84.3 (81.0-99.0) fL MCH 26.7 L (27.0-31.0) pg MCHC 31.7 L (32.0-36.0) g/dL RDW 16.1 H (12.0-15.0) % Plt Count 449 (130-450) 10^3/uL MPV 7.3 L (7.9-10.8) fL Reticulocyte % (Auto) 0.91 (0.5-2.3) % Neut # (Auto) 15.0 H (1.5-6.6) 10^3/uL Lymph # (Auto) 2.0 (1.5-3.5) 10^3/uL [place]ates # (Auto) 1.6 H (0.0-1.0) 10^3/uL Eos # (Auto) 0.3 (0.0-0.7) 10^3/uL Baso # (Auto) 0.1 (0.0-0.1) 10^3/uL Absolute Nucleated RBC 0.00 x10^3/uL Band Neuts % (Manual) Not Reportable Abnorm Lymph % (Manual) Not Reportable Nucleated RBC % 0.0 /100WBC Neutrophils # (Manual) Not Reportable Lymphocytes # (Manual) Not Reportable Monocytes # (Manual) Not Reportable Eosinophils # (Manual) Not Reportable Basophils # (Manual) Not Reportable Differential Comment MANUAL=AUTO DIFF Platelet Estimate NORMAL (130-450,000) (NORMAL) RBC Morph Micro Appear NORMAL APPEARANCE (NORMAL) Absolute Retic 0.034 (0.020-0.110) 10^6/uL Sodium 135 (135-145) mmol/L Potassium 4.5 (3.5-5.0) mmol/L Chloride 102 (101-111) mmol/L Carbon Dioxide 26 (21-32) mmol/L Anion Gap 7.0 (6-13) BUN 21 H (6-20) mg/dL Creatinine 1.0 (0.4-1.0) mg/dL Estimated GFR (MDRD) 52 L (>89) Glucose 127 H (70-100) mg/dL Calcium 8.9 (8.5-10.3) mg/dL Iron (28-170) ug/dL TIBC (250-450) ug/dL % Saturation (20-50) % Transferrin (192-382) mg/dL Ferritin (11.0-306.8) ng/mL Total Bilirubin 0.6 (0.2-1.0) mg/dL AST 29 (10-42) IU/L ALT 14 (10-60) IU/L Alkaline Phosphatase 61 (42-121) IU/L Lactate Dehydrogenase (91-225) IU/L Total Protein 6.2 L (6.7-8.2) g/dL Albumin 2.5 L (3.2-5.5) g/dL Globulin 3.7 (2.1-4.2) g/dL Albumin/Globulin Ratio 0.7 L (1.0-2.2) Vitamin B12 (180-914) pg/mL ABX Reporting Has patient been on IV antibiotics over the past 48 hours?: Yes Sepsis Event Note (H) - Evaluation Current Stage of Sepsis: Ruled out - Sepsis Criteria Sepsis Criteria: WBC count greater than 12,000 or less than 4000 Assessment/Plan - Problem List (1) Hip fracture Impression: 08/31 pain is better controlled, followup orthopedics surgeon who recommended to d/c pt on tomorrow to SNF continue PT/OT continue pain control continue DVT prophylaxis 08/30/18 status post day one after hip repair surgery PT/OT continue pain control start DVT prophylaxis pt has planned surgery today, will followup continue pain control pt had fall, and xray reveals left femoral neck fracture orthopedics was consulted, will followup and plan to have surgery tomorrow. pain control IVF of NS for NPO after midnight pt had no hx of cardiac problem, her revised cardiac risk index for pre- operative risk is low, at 0.4% Qualifiers: Encounter type: initial encounter Fracture type: closed Laterality: left Qualified Code(s): S72.002A - Fracture of unspecified part of neck of left femur, initial encounter for closed fracture (2) CKD (chronic kidney disease) Conclusion/Plan: 08/31 improved, continue lab monitor, hydration, and hold nephrotoxical agents 08/30/18 stable, continue lab monitor, hold nephrotoxical agents stable, at CKD stage 3 continue IVF of NS lab monitor stable, CKD is stage 3 gently hydration with IVF of NS, when pt is on NPO status hold nephrotoxical agents daily lab monitor (3) HTN (hypertension) Conclusion/Plan: stable, continue vital monitor pt has no hx of HTN, today she had slight elevated BP, it may relate to her hip pain pain control PRN of Clonidine vital monitor (4) Chronic vertigo Conclusion/Plan: stable, continue: fall precaution, Antivert PRN pt report she had hx of chronic Vertigo, which she state it may contribute to her fall fall precaution Antivert PRN (5) leukocytosis/Elevated white blood cell count Conclusion/Plan: 08/31chronic, at least for one year, per pt report, Her PCP has the schedule for pt to have PET scan followup PCP to have PET scan 08/30/18 elevated to 18, no fever, chill order CXR, will followup treat underline of UTI with Rocephin continue lab and vital monitor better but still at WBC at 12. pt is found to have UTI, treat with Rocephin pt had elevated WBC to 16, CXR reveal unremarkable, UA is pending. it may relative to today's distress and anxiety from fall. pt denies fever, chill. daily lab monitor, and followup UA (6) UTI 08/30/18 continue antibiotics pt has elevated WBC, UA reveals many bacterial UTI treated with Rocephin, followup UA culture (7) cough 08/31 improved. Albuterol/duoneb PRN supple O2 as needed continue incentive spectrometry good lung sound but pt present wet cough order CXR, reveals with stable right pleural effusion, and course interstitial lung disease/markings hold IVF of NS Albuterol/duoneb PRN supple O2 as needed order incentive spectrometry (8) iron deficiency anemia HGB 9.8. no GI bleed reported. pt denies GI bleed as well. pt present microcytic anemia. anemia study reveals significant iron deficiency anemia. IV of ferricep daily iron pill lab monitor Qualifiers: Encounter type: initial encounter Fracture type: closed Laterality: left Qualified Code(s): S72.002A - Fracture of unspecified part of neck of left femur, initial encounter for closed fracture
[2018-08-31] MEDS ORDERED: FERRIC GLUCONATE 125 MG in SODIUM CHLORIDE 0.9% 100ML 100 ML IV SCH (17:00)
[2018-08-31] MEDS: ACETAMINOPHEN 325 MG TABLET PO PRN (21:09)
[2018-08-31 22:42] LABS: BILIRUBIN,URINE NEGATIVE (NEGATIVE); GLUCOSE, URINE (UA) 100 mg/dL (NEGATIVE); KETONES,URINE (UA) NEGATIVE (NEGATIVE); LEUKOCYTE ESTERASE, URINE NEGATIVE (NEGATIVE); NITRITE,URINE NEGATIVE (NEGATIVE); OCCULT BLOOD,URINE SMALL (NEGATIVE); PH,URINE 5.5 PH (5.0-7.5); PROTEIN,URINE TRACE mg/dL (NEGATIVE); UROBILINOGEN,URINE 0.2 (NORMAL) E.U./dL (NORMAL)
[2018-08-31 22:51] LABS: BACTERIA,URINE None Seen /HPF (None Seen); CASTS, URINE 0-2 Fine Granular /LPF; CLARITY,URINE CLEAR (CLEAR); RBC,URINE None Seen /HPF (0-5); SQUAMOUS EPITHELIAL CELL,UR NONE SEEN (<= Few)
[2018-09-01] MEDS: oxyCODONE 5 MG TABLET PO PRN (02:10)
[2018-09-01] MEDS: SODIUM CHLORIDE FLUSH 0.9% 10 ML SYRINGE IVP SCH ×3 (03:03→20:15)
[2018-09-01 05:58] LABS: BASOPHILS # (AUTO) 0.1 10^3/uL (0.0-0.1); BASOPHILS % (AUTO) 0.3 %; EOSINOPHILS # (AUTO) 0.3 10^3/uL (0.0-0.7); EOSINOPHILS % (AUTO) 1.3 %; HGB - HEMOGLOBIN 9.6 g/dL (12.0-16.0); LYMPHOCYTES % (AUTO) 10.1 %; MEAN CORPUSCULAR HEMOGLOBIN 26.2 pg (27.0-31.0); MEAN CORPUSCULAR HGB CONC 31.7 g/dL (32.0-36.0); MEAN CORPUSCULAR VOLUME 82.8 fL (81.0-99.0); MEAN PLATELET VOLUME 7.6 fL (7.9-10.8); MONOCYTES # (AUTO) 1.5 10^3/uL (0.0-1.0); MONOCYTES % (AUTO) 7.7 %; NEUTROPHILS # (AUTO) 15.9 10^3/uL (1.5-6.6); NEUTROPHILS % (AUTO) 80.6 %; PLT - PLATELET COUNT 494 10^3/uL (130-450); RED BLOOD COUNT 3.65 10^6/uL (4.20-5.40); RED CELL DISTRIBUTION WIDTH 16.4 % (12.0-15.0); WHITE BLOOD COUNT 19.7 x10^3/uL (4.8-10.8)
[2018-09-01 06:13] LABS: ALBUMIN 2.4 g/dL (3.2-5.5); ALBUMIN/GLOBULIN RATIO 0.7 (1.0-2.2); BILIRUBIN,TOTAL 0.5 mg/dL (0.2-1.0); CALCIUM 9.2 mg/dL (8.5-10.3)
[2018-09-01] MEDS: CALCIUM CARBONATE CHEW 500 MG TABLET PO SCH ×2 (08:32→20:15)
[2018-09-01] MEDS: cefTRIAXone 1 GM in SODIUM CHLORIDE 0.9% MINIBAG 100 ML IV SCH (08:33)
[2018-09-01] MEDS: MEGESTROL 400 MG/10 ML UDC PO SCH (08:33)
[2018-09-01] MEDS: CARBOXYMETHYLCELLULOSE OPHTH DROPS EACHEYE SCH (08:34)
[2018-09-01] MEDS: ASPIRIN EC 325 MG TABLET PO SCH (08:34)
[2018-09-01] MEDS: guaiFENesin 600 MG TABLET PO SCH ×2 (08:34→20:15)
[2018-09-01] MEDS: MULTIVITAMIN TABLET PO SCH (08:34)
[2018-09-01] MEDS: FAMOTIDINE 20 MG TABLET PO SCH (08:34)
[2018-09-01] MEDS: FERROUS SULFATE 325 MG TABLET PO SCH (08:34)
[2018-09-01] MEDS: BIOTIN 5000 MCG PO SCH (08:35)
[2018-09-01] MEDS: POLYETHYLENE GLYCOL 3350 17 GM PACKET PO SCH (08:35)
[2018-09-01] MEDS: CHOLECALCIFEROL 400 UNIT TABLET PO SCH (08:35)
[2018-09-01] MEDS: DOCUSATE SODIUM 250 MG CAPSULE PO SCH (08:35)
[2018-09-01] MEDS: LACTOBACILLUS RHAMNOSUS GG CAPSULE PO SCH (08:35)
[2018-09-01] MEDS: MULTIVITAMIN W/IRON, MINERALS 15 ML PO SCH (08:35)
[2018-09-01] MEDS: UBIDECARENONE 100 MG PO SCH (08:35)
[2018-09-01] MEDS: SENNA 8.6 MG TABLET PO SCH (08:35)
[2018-09-01] MEDS: OREGANO OIL 1500 MG PO SCH (08:35)
[2018-09-01] MEDS: TOCOPHERYL 400 UNIT CAPSULE PO SCH (08:36)
--- NOTE | 2018-09-01 09:44 | PROVIDER PROGRESS NOTE ---
Subjective - General Admit Date: 08/28/18 Procedure Date: 08/29/18 Post Op Days: 3 Procedure Performed: left hip endoprosthesis - Review of Systems Wound/Incisions: positive: Dressing dry and intact General: positive: Fatigue Musculoskeletal: positive: Joint pain Objective - Patient Data Reviewed Vital Signs: Yes Vital Signs: Vital Signs x48h Temp Pulse Resp BP Pulse Ox 09/01/18 07:34 36.4 C L 76 20 114/47 L 99 Intake & Output: Intake and Output Totals x24h 08/30/18 08/31/18 09/01/18 23:59 23:59 23:59 Intake Total 2790 1440 120 Output Total 791 6230 635 Balance 1995 -835 -515 - Lab Results Lab Results: 09/01/18 05:20 09/01/18 05:20 Other Lab Results: Lab Results x24hrs 09/01/18 09/01/18 08/31/18 Range/Units 05:20 05:20 22:30 WBC 19.7 H (4.8-10.8) x10^3/uL RBC 3.65 L (4.20-5.40) 10^6/uL Hgb 9.6 L (12.0-16.0) g/dL Hct 30.2 L (37.0-47.0) % MCV 82.8 (81.0-99.0) fL MCH 26.2 L (27.0-31.0) pg MCHC 31.7 L (32.0-36.0) g/dL RDW 16.4 H (12.0-15.0) % Plt Count 494 H (130-450) 10^3/uL MPV 7.6 L (7.9-10.8) fL Neut # (Auto) 15.9 H (1.5-6.6) 10^3/uL Lymph # (Auto) 2.0 (1.5-3.5) 10^3/uL [place] # (Auto) 1.5 H (0.0-1.0) 10^3/uL Eos # (Auto) 0.3 (0.0-0.7) 10^3/uL Baso # (Auto) 0.1 (0.0-0.1) 10^3/uL Absolute Nucleated RBC 0.00 x10^3/uL Nucleated RBC % 0.0 /100WBC Sodium 134 L (135-145) mmol/L Potassium 4.8 (3.5-5.0) mmol/L Chloride 100 L (101-111) mmol/L Carbon Dioxide 28 (21-32) mmol/L Anion Gap 6.0 (6-13) BUN 19 (6-20) mg/dL Creatinine 1.0 (0.4-1.0) mg/dL Estimated GFR (MDRD) 52 L (>89) Glucose 126 H (70-100) mg/dL Calcium 9.2 (8.5-10.3) mg/dL Total Bilirubin 0.5 (0.2-1.0) mg/dL AST 24 (10-42) IU/L ALT 12 (10-60) IU/L Alkaline Phosphatase 62 (42-121) IU/L Total Protein 6.0 L (6.7-8.2) g/dL Albumin 2.4 L (3.2-5.5) g/dL Globulin 3.6 (2.1-4.2) g/dL Albumin/Globulin Ratio 0.7 L (1.0-2.2) Urine Color YELLOW Urine Clarity CLEAR (CLEAR) Urine pH 5.5 (5.0-7.5) PH Ur Specific [place] 1.015 (1.002-1.030) Urine Protein TRACE (NEGATIVE) mg/dL Urine Glucose (UA) 100 H (NEGATIVE) mg/dL Urine Ketones NEGATIVE (NEGATIVE) mg/dL Urine Occult Blood SMALL H (NEGATIVE) Urine Nitrite NEGATIVE (NEGATIVE) Urine Bilirubin NEGATIVE (NEGATIVE) Urine Urobilinogen 0.2 (NORMAL) (NORMAL) E.U./dL Ur Leukocyte Esterase NEGATIVE (NEGATIVE) Urine RBC None Seen (0-5) /HPF Urine WBC 0-3 (0-5) /HPF Ur Squamous Epith Cells NONE SEEN (<= Few) Urine Bacteria None Seen (None Seen) /HPF Urine Casts 0-2 Fine Granular /LPF Urine Culture Comments NOT INDICATED - Current Medications Current Medications: Current Medications Generic Name Dose Route Start Last Admin Trade Name Freq PRN Reason Stop Dose Admin Acetaminophen 650 mg 08/28/18 16:09 08/31/18 21:09 Tylenol PO 325 mg Q4HR PRN Administration Pain 1 to 4 Aspirin 325 mg 08/31/18 13:00 09/01/18 08:34 Ecotrin PO 325 mg DAILY [facility]ORGETTE Administration Calcium Carbonate/Glycine 500 mg 08/29/18 21:00 09/01/18 08:32 Tums PO 500 mg BID GEORGETTE Administration Carboxymethylcellulose 1 drops 08/29/18 09:00 09/01/18 08:34 Refresh 1% Ophth Drops EACHEYE 1 drops DAILY [facility]GETTE Administration Cholecalciferol 400 unit 08/29/18 09:00 09/01/18 08:35 Vitamin D3 PO 400 unit DAILY [facility] Administration Docusate Sodium 250 - 500 mg 08/31/18 09:00 09/01/18 08:35 Colace 250mg Capsule PO 250 mg DAILY [facility]TE Administration Famotidine 20 mg 08/28/18 21:00 09/01/18 08:34 Pepcid PO 20 mg DAILY [facility]TE Administration Ferrous Sulfate 325 mg 09/01/18 08:00 09/01/18 08:34 Feosol PO 325 mg DAILYWM [facility]GETTE Administration Guaifenesin 600 mg 08/30/18 10:00 09/01/18 08:34 Mucinex PO 600 mg BID [facility] Administration Ceftriaxone Sodium 1 gm/ 100 mls @ 200 mls/hr 08/29/18 08:00 09/01/18 08:33 Sodium Chloride IV 200 mls/hr Q24H [facility]TE Administration Lactobacillus Rhamnosus 1 cap 08/29/18 09:00 09/01/18 08:35 Culturelle PO 1 cap DAILY [facility]TE Administration Megestrol Acetate 400 mg 08/30/18 12:00 09/01/18 08:33 Megace PO 400 mg DAILY [facility] Administration Multivitamins 1 tab 08/29/18 09:00 09/01/18 08:34 Theragran PO 1 tab DAILY [facility] Administration Multivitamins/Folic Acid/Vitamin C 15 ml 08/30/18 16:00 09/01/18 08:35 Centrum PO Not Given DAILY [facility] Ondansetron HCl 4 mg 08/28/18 16:09 08/29/18 09:55 Zofran Inj IVP 4 mg Q6HR PRN Administration Nausea / Vomiting Oxycodone HCl 5 mg 08/28/18 16:09 09/01/18 02:10 Roxicodone PO 5 mg Q4HR PRN Administration Pain 5 to 7 Patient Own Med( 1 each 08/29/18 09:00 09/01/18 08:35 Biotin 5,000 Mcg) PO Not Given DAILY [facility]TE Patient Own Med ( 1 each 08/29/18 09:00 09/01/18 08:35 Vitamin B Complex) PO Not Given DAILY [facility]TE Patient Own Med ( 1 each 08/30/18 09:00 09/01/18 08:35 Oregano Oil [Oil Of PO Not Given Oregano] 1,500 Mg) DAILY [facility] Patient Own Med ( 1 each 08/30/18 09:00 09/01/18 08:35 Ubidecarenone [Coq- PO Not Given 10] 100 Mg) DAILY [facility] Polyethylene Glycol 17 gm 08/29/18 09:00 09/01/18 08:35 Miralax PO Not Given DAILY [facility] Senna 8.6 - 17.2 mg 08/31/18 09:00 09/01/18 08:35 Senokot PO 8.6 mg DAILY [facility] Administration Sodium Chloride 10 ml 08/28/18 16:09 08/28/18 18:33 Normal Saline Flush 0.9% IVP 10 ml PRN PRN Administration NEEDED PER PROVIDER ORDERS Sodium Chloride 10 ml 08/28/18 17:00 09/01/18 08:33 Normal Saline Flush 0.9% IVP 10 ml 0100,0900,1700 [facility] Administration Vitamin E 400 unit 08/29/18 09:00 09/01/18 08:36 Vitamin E PO Not Given DAILY [facility] - Physical Exam Extremities: positive: Nml appearance, Joint swelling Neurologic/Psychiatric: positive: Oriented x3, CN's nml (2-12), Motor nml, S ensation nml, Mood/affect nml Impression/Plan - Problem List Problem List: POD #3 pt is progressing well agree with SNF placement RTC in 2 wks. Silver dressing on hip to be left in place for next 7 days, then d/c cont. PT at [facility].
[2018-09-01] MEDS: ACETAMINOPHEN 325 MG TABLET PO PRN ×2 (13:55→21:30)
--- NOTE | 2018-09-01 14:01 | CT Report ---
Reason: ams Procedure Date: 09/01/2018 Accession Number: [id number] / [id number] Procedure: CT - Head W/O CPT Code: FULL RESULT: EXAM: CT HEAD EXAM DATE: 09/01/2018 01:33 PM. CLINICAL HISTORY: Ams. COMPARISON: HEAD ANGIO 03/15/2014 11:57 AM. TECHNIQUE: Multiaxial CT images were obtained from the foramen magnum to the vertex. Reformats: Sagittal and coronal. IV contrast: None. In accordance with CT protocol optimization, one or more of the following dose reduction techniques were utilized for this exam: automated exposure control, adjustment of mA and/or KV based on patient size, or use of iterative reconstructive technique. FINDINGS: Parenchyma: No intraparenchymal hemorrhage. No evidence of mass, midline shift, or CT findings of acute infarction. Barkley-white differentiation is distinct. Diffuse chronic microangiopathic white matter changes. Extraaxial Spaces: Normal for age. No subdural or epidural collections. Ventricles: The ventricles and cortical sulci are enlarged, consistent with age-related tissue loss. Sinuses and orbits: Imaged paranasal sinuses, orbits, and mastoids show no significant abnormality. Bones: Unremarkable. Other: None. IMPRESSION: Generalized age-related cortical atrophic changes without evidence of acute intracranial abnormality. RADIA
--- NOTE | 2018-09-01 18:26 | PROVIDER PROGRESS NOTE ---
Subjective - Prog Note Date Prog Note Date: 09/01/18 - Subjective Pt reports feeling: Worse Subjective: pt report she is very weak, her right hand can not hold the fork to eat her breakfast. I feed her for two bite of egg. Nurse also report she had some co nfused. Because of these change, will hold d/c today, and order CT of head to r/o acute change. I called Dr. Roni Coffman's office to try discuss continuing of care plan, and try to obtain more pt's clinic information for better care to pt, but unfortunately Dr. Coffman's office was not people to pick up and delivery driver the phone. I tried to call Dr. Yañez, oncologist for concerning pt's consisting leukocytosis but could not reach her. Pt did not show "B" symptoms, no fever, or any bleed. hemodynamical stable. pt reported to me this was her chronic condition, and it has been about one year. check pt's ARCHANA kinase enzyme. Current Medications - Current Medications Current Medications: Active Medications Acetaminophen (Tylenol) 650 mg PO Q4HR PRN PRN Reason: Pain 1 to 4 Last Admin: 09/02/18 01:31 Dose: 650 mg Albuterol () 2.5 mg INH RTQ4H PRN PRN Reason: Wheezing Albuterol/Ipratropium (Duoneb) 3 ml INH Q4HR PRN PRN Reason: Wheezing Aspirin (Ecotrin) 325 mg PO DAILY [facility] Last Admin: 09/02/18 09:11 Dose: 325 mg Calcium Carbonate/Glycine (Tums) 500 mg PO BID [facility] Last Admin: 09/02/18 09:11 Dose: 500 mg Carboxymethylcellulose (Refresh 1% Ophth Drops) 1 drops EACHEYE DAILY [facility] Last Admin: 09/02/18 09:14 Dose: 1 drops Cholecalciferol (Vitamin D3) 400 unit PO DAILY [facility] Last Admin: 09/02/18 09:10 Dose: 400 unit Clonidine HCl (Catapres) 0.1 mg PO BID PRN PRN Reason: Hypertensive Emergency Docusate Sodium (Colace 250mg Capsule) 250 - 500 mg PO DAILY [facility] Last Admin: 09/02/18 09:11 Dose: 250 mg Famotidine (Pepcid) 20 mg PO DAILY [facility] Last Admin: 09/02/18 09:11 Dose: 20 mg Ferrous Sulfate (Feosol) 325 mg PO DAILYWM [facility] Last Admin: 09/02/18 09:11 Dose: 325 mg Guaifenesin (Mucinex) 600 mg PO BID [facility] Last Admin: 09/02/18 09:11 Dose: 600 mg Sodium Chloride (Normal Saline 0.9%) 1,000 mls @ 75 mls/hr IV .[id number] [facility] Last Admin: 09/02/18 09:17 Dose: 75 mls/hr Lactobacillus Rhamnosus (Culturelle) 1 cap PO DAILY [facility] Last Admin: 09/02/18 09:11 Dose: 1 cap Meclizine HCl (Antivert) 12.5 mg PO Q6HR PRN PRN Reason: Dizziness Megestrol Acetate (Megace) 400 mg PO DAILY [facility] Last Admin: 09/02/18 09:11 Dose: 400 mg Multi-Ingredient Ointment (Zinc Oxide) 1 applic TOP PRN PRN PRN Reason: Skin Care Last Admin: 09/02/18 04:28 Dose: 1 applic Multivitamins (Theragran) 1 tab PO DAILY [facility] Last Admin: 09/02/18 09:11 Dose: 1 tab Ondansetron HCl (Zofran Inj) 4 mg IVP Q6HR PRN PRN Reason: Nausea / Vomiting Last Admin: 08/29/18 09:55 Dose: 4 mg Patient Own Med ( Oregano Oil [Oil Of Oregano] 1,500 Mg) 1 each PO DAILY [facility] Last Admin: 09/02/18 09:13 Dose: Not Given Patient Own Med ( Ubidecarenone [Coq- 10] 100 Mg) 1 each PO DAILY [facility] Last Admin: 09/02/18 09:13 Dose: Not Given Polyethylene Glycol (Miralax) 17 gm PO DAILY [facility] Last Admin: 09/02/18 09:13 Dose: Not Given Senna (Senokot) 8.6 - 17.2 mg PO DAILY [facility] Last Admin: 09/02/18 09:58 Dose: 8.6 mg Sodium Chloride (Normal Saline Flush 0.9%) 10 ml IVP PRN PRN PRN Reason: NEEDED PER PROVIDER ORDERS Last Admin: 08/28/18 18:33 Dose: 10 ml Sodium Chloride (Normal Saline Flush 0.9%) 10 ml IVP 0100,0900,1700 [facility] Last Admin: 09/02/18 09:14 Dose: 10 ml Vitamin E (Vitamin E) 400 unit PO DAILY [facility] Last Admin: 09/02/18 09:58 Dose: 400 unit Zolpidem Tartrate (Ambien) 5 mg PO QPM PRN PRN Reason: Insomnia Biotin 5,000 mcg PO DAILY 05/10/13 Cholecalciferol (Vitamin D3) [Vitamin D3] 400 unit PO DAILY 05/10/13 Dextran 70/Hypromellose [Artificial Tears] 1 each OP DAILY 05/10/13 Lactobacillus Rhamnosus GG [Probiotic] 1 each PO DAILY 05/10/13 Multivitamin [Multivitamins] 1 each PO DAILY 05/10/13 Oregano Oil [Oil of Oregano] 1,500 mg PO DAILY 05/10/13 Ubidecarenone [Coq-10] 100 mg PO DAILY 05/10/13 Vitamin B Complex [B Complex] 1 each PO DAILY 05/10/13 Vitamin E 400 unit PO DAILY 05/10/13 Objective - Vital Signs/Intake & Output Reviewed Vital Signs: Yes Vital Signs: Vital Signs x48h Temp Pulse Resp BP Pulse Ox 09/01/18 15:50 36.7 C 89 18 113/53 L 93 Intake & Output: Intake & Output 08/29/18 08/30/18 08/31/18 09/01/18 23:59 23:59 23:59 23:59 Intake Total 2726.75 2790 1440 220 Output Total 683 552 6046 635 Balance 1876.75 1995 -835 -415 - Objective General Appearance: positive: No acute distress, Alert. negative: Lethargic Eyes Bilateral: positive: Normal inspection, PERRL, No lid inflammation, Conjunctivae nml ENT: positive: ENT inspection nml, Pharynx nml, No signs of dehydration. negative: Purulent nasal drainage, Pharyngeal erythema, Oral lesions Neck: positive: Nml inspection, Thyroid nml, No JVD, Trachea midline. negative: Thyromegaly, Lymphadenopathy (R), Lymphadenopathy (L), Stiff neck, Swelli ng/bruising, Tracheal deviation Respiratory: positive: Chest non-tender, No respiratory distress. negative: Wheezes, Rales, Rhonchi Cardiovascular: positive: Regular rate & rhythm, No murmur, No gallop. negative: Irregularly irregular, Extrasystoles, Tachycardia, Bradycardia, JVD present, Systolic murmur, Diastolic murmur Peripheral Pulses: 2+ Radial (R), 2+ Radial (L), 2+ Dorsalis pedis (R), 2+ Dorsalis pedis (L) Abdomen: positive: Non-tender, No organomegaly, Nml bowel sounds, No distention. negative: Tenderness, Guarding, Rebound Back: positive: Nml inspection. negative: CVA tenderness (R), CVA tenderness (L) Skin: positive: Color nml, No rash, Warm, Dry. negative: Cyanosis, Diaphoresis, Pallor Extremities: positive: Non-tender. negative: Calf tenderness, Joint swelling, Kim's sign/cords Neurologic/Psychiatric: positive: Sensation nml, Mood/affect nml, Weakness. negative: Sensory loss, Facial droop, Slurred/abnml speech, Depressed mood/affect - Lab Results Fish Bones: 09/02/18 06:11 09/02/18 06:11 Other Labs: Lab Results x24hrs 09/01/18 09/01/18 08/31/18 Range/Units 05:20 05:20 22:30 WBC 19.7 H (4.8-10.8) x10^3/uL RBC 3.65 L (4.20-5.40) 10^6/uL Hgb 9.6 L (12.0-16.0) g/dL Hct 30.2 L (37.0-47.0) % MCV 82.8 (81.0-99.0) fL MCH 26.2 L (27.0-31.0) pg MCHC 31.7 L (32.0-36.0) g/dL RDW 16.4 H (12.0-15.0) % Plt Count 494 H (130-450) 10^3/uL MPV 7.6 L (7.9-10.8) fL Neut # (Auto) 15.9 H (1.5-6.6) 10^3/uL Lymph # (Auto) 2.0 (1.5-3.5) 10^3/uL [place] # (Auto) 1.5 H (0.0-1.0) 10^3/uL Eos # (Auto) 0.3 (0.0-0.7) 10^3/uL Baso # (Auto) 0.1 (0.0-0.1) 10^3/uL Absolute Nucleated RBC 0.00 x10^3/uL Nucleated RBC % 0.0 /100WBC Sodium 134 L (135-145) mmol/L Potassium 4.8 (3.5-5.0) mmol/L Chloride 100 L (101-111) mmol/L Carbon Dioxide 28 (21-32) mmol/L Anion Gap 6.0 (6-13) BUN 19 (6-20) mg/dL Creatinine 1.0 (0.4-1.0) mg/dL Estimated GFR (MDRD) 52 L (>89) Glucose 126 H (70-100) mg/dL Calcium 9.2 (8.5-10.3) mg/dL Total Bilirubin 0.5 (0.2-1.0) mg/dL AST 24 (10-42) IU/L ALT 12 (10-60) IU/L Alkaline Phosphatase 62 (42-121) IU/L Total Protein 6.0 L (6.7-8.2) g/dL Albumin 2.4 L (3.2-5.5) g/dL Globulin 3.6 (2.1-4.2) g/dL Albumin/Globulin Ratio 0.7 L (1.0-2.2) Urine Color YELLOW Urine Clarity CLEAR (CLEAR) Urine pH 5.5 (5.0-7.5) PH Ur Specific [place] 1.015 (1.002-1.030) Urine Protein TRACE (NEGATIVE) mg/dL Urine Glucose (UA) 100 H (NEGATIVE) mg/dL Urine Ketones NEGATIVE (NEGATIVE) mg/dL Urine Occult Blood SMALL H (NEGATIVE) Urine Nitrite NEGATIVE (NEGATIVE) Urine Bilirubin NEGATIVE (NEGATIVE) Urine Urobilinogen 0.2 (NORMAL) (NORMAL) E.U./dL Ur Leukocyte Esterase NEGATIVE (NEGATIVE) Urine RBC None Seen (0-5) /HPF Urine WBC 0-3 (0-5) /HPF Ur Squamous Epith Cells NONE SEEN (<= Few) Urine Bacteria None Seen (None Seen) /HPF Urine Casts 0-2 Fine Granular /LPF Urine Culture Comments NOT INDICATED ABX Reporting Has patient been on IV antibiotics over the past 48 hours?: No Sepsis Event Note (H) - Evaluation Current Stage of Sepsis: Ruled out - Sepsis Criteria Sepsis Criteria: WBC count greater than 12,000 or less than 4000 Assessment/Plan - Problem List (1) Hip fracture Impression: 09/01 pt is very weak today, and some confused. order CT of head to r/o acute abnormal hold the d/c to [facility] continue PT/OT continue close monitor with lab, vital 08/31 pain is better controlled, followup orthopedics surgeon who recommended to d/c pt on tomorrow to SNF continue PT/OT continue pain control continue DVT prophylaxis 08/30/18 status post day one after hip repair surgery PT/OT continue pain control start DVT prophylaxis pt has planned surgery today, will followup continue pain control pt had fall, and xray reveals left femoral neck fracture orthopedics was consulted, will followup and plan to have surgery tomorrow. pain control IVF of NS for NPO after midnight pt had no hx of cardiac problem, her revised cardiac risk index for pre- operative risk is low, at 0.4% Qualifiers: Encounter type: initial encounter Fracture type: closed Laterality: left Qualified Code(s): S72.002A - Fracture of unspecified part of neck of left femur, initial encounter for closed fracture (2) CKD (chronic kidney disease) Conclusion/Plan: 09/01 stable, and improved 08/31 improved, continue lab monitor, hydration, and hold nephrotoxical agents 08/30/18 stable, continue lab monitor, hold nephrotoxical agents stable, at CKD stage 3 continue IVF of NS lab monitor stable, CKD is stage 3 gently hydration with IVF of NS, when pt is on NPO status hold nephrotoxical agents daily lab monitor (3) HTN (hypertension) Conclusion/Plan: stable, continue vital monitor pt has no hx of HTN, today she had slight elevated BP, it may relate to her hip pain pain control PRN of Clonidine vital monitor (4) Chronic vertigo Conclusion/Plan: stable, continue: fall precaution, Antivert PRN pt report she had hx of chronic Vertigo, which she state it may contribute to her fall fall precaution Antivert PRN (5) leukocytosis/Elevated white blood cell count Conclusion/Plan: 09/[address] Roni Coffman and Dr. Yañez, but could not reach pt reported to me this was her chronic condition about one year. 08/31chronic, at least for one year, per pt report, Her PCP has the schedule for pt to have PET scan followup PCP to have PET scan 08/30/18 elevated to 18, no fever, chill order CXR, will followup treat underline of UTI with Rocephin continue lab and vital monitor better but still at WBC at 12. pt is found to have UTI, treat with Rocephin pt had elevated WBC to 16, CXR reveal unremarkable, UA is pending. it may relative to today's distress and anxiety from fall. pt denies fever, chill. daily lab monitor, and followup UA (6) cough 09/01 improved. pt report she had chronic cough for long time. supple O2 as needed continue incentive spectrometry 08/31 improved. Albuterol/duoneb PRN supple O2 as needed continue incentive spectrometry good lung sound but pt present wet cough order CXR, reveals with stable right pleural effusion, and course interstitial lung disease/markings hold IVF of NS Albuterol/duoneb PRN supple O2 as needed order incentive spectrometry (7) iron deficiency anemia 09/01 stable, continue iron pill HGB 9.8. no GI bleed reported. pt denies GI bleed as well. pt present microcytic anemia. anemia study reveals significant iron deficiency anemia. IV of ferricep daily iron pill lab monitor (8) urine retention nurse report pt has urine retention. pt report to me she had the chronic problem for long time will bladder scan, discuss with pt if Dennison or st-cath as she is willing to have Qualifiers: Encounter type: initial encounter Fracture type: closed Laterality: left Qualified Code(s): S72.002A - Fracture of unspecified part of neck of left femur, initial encounter for closed fracture
[2018-09-02] MEDS: SODIUM CHLORIDE FLUSH 0.9% 10 ML SYRINGE IVP SCH ×2 (00:50→09:14)
[2018-09-02] MEDS: ZINC OXIDE 20% OINT 28.35 GM TUBE TOP PRN ×2 (00:50→04:28)
[2018-09-02] MEDS: ACETAMINOPHEN 325 MG TABLET PO PRN ×2 (01:31→13:20)
[2018-09-02 06:56] LABS: ALBUMIN 2.8 g/dL (3.2-5.5); ALBUMIN/GLOBULIN RATIO 0.7 (1.0-2.2); BILIRUBIN,TOTAL 0.5 mg/dL (0.2-1.0); CALCIUM 9.7 mg/dL (8.5-10.3); CREATININE 1.1 mg/dL (0.4-1.0); TOTAL PROTEIN 6.8 g/dL (6.7-8.2)
[2018-09-02 07:01] LABS: BASOPHILS % (AUTO) 0.2 %; EOSINOPHILS # (AUTO) 0.3 10^3/uL (0.0-0.7); EOSINOPHILS % (AUTO) 1.7 %; HGB - HEMOGLOBIN 10.2 g/dL (12.0-16.0); LYMPHOCYTES # (AUTO) 2.3 10^3/uL (1.5-3.5); LYMPHOCYTES % (AUTO) 13.2 %; MEAN CORPUSCULAR HEMOGLOBIN 27.4 pg (27.0-31.0); MEAN CORPUSCULAR HGB CONC 32.9 g/dL (32.0-36.0); MEAN CORPUSCULAR VOLUME 83.2 fL (81.0-99.0); MEAN PLATELET VOLUME 8.4 fL (7.9-10.8); MONOCYTES # (AUTO) 1.3 10^3/uL (0.0-1.0); MONOCYTES % (AUTO) 7.3 %; NEUTROPHILS # (AUTO) 13.5 10^3/uL (1.5-6.6); NEUTROPHILS % (AUTO) 77.6 %; PLT - PLATELET COUNT 543 10^3/uL (130-450); RED BLOOD COUNT 3.72 10^6/uL (4.20-5.40); RED CELL DISTRIBUTION WIDTH 16.2 % (12.0-15.0); WHITE BLOOD COUNT 17.3 x10^3/uL (4.8-10.8)
[2018-09-02] MEDS ORDERED: SODIUM CHLORIDE 0.9% 1,000 ML IV SCH (08:00)
[2018-09-02] MEDS: CHOLECALCIFEROL 400 UNIT TABLET PO SCH (09:10)
[2018-09-02] MEDS: ASPIRIN EC 325 MG TABLET PO SCH (09:11)
[2018-09-02] MEDS: LACTOBACILLUS RHAMNOSUS GG CAPSULE PO SCH (09:11)
[2018-09-02] MEDS: DOCUSATE SODIUM 250 MG CAPSULE PO SCH (09:11)
[2018-09-02] MEDS: MULTIVITAMIN TABLET PO SCH (09:11)
[2018-09-02] MEDS: CALCIUM CARBONATE CHEW 500 MG TABLET PO SCH (09:11)
[2018-09-02] MEDS: guaiFENesin 600 MG TABLET PO SCH (09:11)
[2018-09-02] MEDS: MEGESTROL 400 MG/10 ML UDC PO SCH (09:11)
[2018-09-02] MEDS: FAMOTIDINE 20 MG TABLET PO SCH (09:11)
[2018-09-02] MEDS: FERROUS SULFATE 325 MG TABLET PO SCH (09:11)
[2018-09-02] MEDS: SENNA 8.6 MG TABLET PO SCH ×2 (09:12→09:58)
[2018-09-02] MEDS: UBIDECARENONE 100 MG PO SCH (09:13)
[2018-09-02] MEDS: POLYETHYLENE GLYCOL 3350 17 GM PACKET PO SCH (09:13)
[2018-09-02] MEDS: OREGANO OIL 1500 MG PO SCH (09:13)
[2018-09-02] MEDS: CARBOXYMETHYLCELLULOSE OPHTH DROPS EACHEYE SCH (09:14)
[2018-09-02] MEDS: TOCOPHERYL 400 UNIT CAPSULE PO SCH (09:58)
--- NOTE | 2018-09-02 10:36 | Discharge Plan ---
"Discharge Plan for SNF / JUD - Discharge Plan And Transition Orders Disposition: 03 SNF DC/Xfer Condition: Poor Allergies and Adverse Reactions: Allergies Allergy/AdvReac Type Severity Reaction Status Date / Time nitrofurantoin Allergy Rash Verified 08/28/18 13:22 macrocrystalline * [From Macrodantin] - SNF / SHELTER Transition Orders Admit to (Facility): [facility] Under the care of (Name): Ian Henry Discharge Diagnosis: status post of left hip repair, CKD, HTN, chronic vertigo, leukocytosis, chronic cough, iron deficiency anemia Medicare Certification Statement: I certify that [facility] is medically necessary on a continuing basis for any of the conditions for which she[place]he [place] [facility] [place] PCP of admission and forward orders to primary provider for signature. Weight on admission and: Daily Call PCP immediately if weight increases by: 1.5 kg Other Notification Orders: Call PCP immediately if patient develops dyspnea, chest pain/tightness or edema. House Bowel Program: Yes Additional Bowel Program Orders: If no BM after 2 days, nurse may give M.O.M. 30ml PO PRN and/or ducolax Supp 1 ND and/or ADA 250mg P.O., and/or senna 1-2 tabs PO. On day 3 nurse may give repeat above order until residents constipation is resolved. Annual Influenza Vaccine (between Apr 22 and November 19): Yes Two-step PPD per [facility] [id number] or approved exception documents: Yes Treatments & Other Orders: pt may followup admission provider at [facility] when pt is arrival to [facility]. Pt may followup Dr. Maharaj orthopedics office in 2 wks. Pt may have Silver dressing on hip to be left in place for next 7 days, then d/c. Pt may continue PT/OT/ST at [facility]. Pt may followup bagger and stock handler helper as out- pt. Pt report she had leukocytosis for about one year. Today her WBC is 17.3, please continue monitor pt closely. Oxygen Orders: PRN Medication Orders: PLEASE REFER TO THE DISCHARGE MEDICATION LIST. Insulin Orders?: No - Medications New Prescriptions: Aspirin EC [Ecotrin] 325 mg PO DAILY #10 tablet Ferrous Sulfate 325 mg PO DAILY #15 tablet oxyCODONE [Roxicodone] 5 mg PO Q4-6H PRN #15 tablet PRN Reason: Pain - Diet Type: Geriatric Texture: Dysphagia [facility] Liquids: [place] thick May have monthly special meal: Yes - Therapies | Activity Therapy: Evaluation | Treat if indicated: PT, OT, Swallowing / ST Rehabilitation Potential: Maximize functional status Activity: Activity as Tolerated Additional Instructions: pt may followup admission provider at [facility] when pt is arrival to [facility]. Pt may followup Dr. Maharaj orthopedics office in 2 wks. Pt may have Silver dressing on hip to be left in place for next 7 days, then d/c. Pt may continue PT/OT/ST at [facility]. Pt may followup bagger and stock handler helper as out-pt. Pt report she had leukocytosis for about one year. Today her WBC is 17.3, please continue monitor pt closely."
--- NOTE | 2018-09-02 12:34 | DISCHARGE SUMMARY ---
Discharge Summary Discharge Date: 09/02/18 Discharging Provider: ROCHE Primary Care Provider: Dr. Roni Coffman Condition at Discharge: Poor Discharge Disposition: 03 SNF DC/Xfer Discharge Facility Name: [facility] - DIAGNOSES Admission Diagnoses: (1) Hip fracture (2) CKD (chronic kidney disease) (3) HTN (hypertension) (4) Chronic vertigo (5) Elevated white blood cell count Discharge Diagnoses with Status of Each Condition: (1) Hip fracture status post hip repair. continue in SNF for PT/OT/ST, followup [facility]opedics [facility]. Aspirin 325 mg daily was recommended by Dr. Maharaj for DVT prophylaxis. (2) CKD (chronic kidney disease) improved and stable. (3) HTN (hypertension) stable, continue PCP/SNF management (4) Chronic vertigo stable (5) leukocytosis/Elevated white blood cell count stable. no fever or bleed. hemodynamic stable. followup electric knife operator as out-pt (6) cough chronic, stable (7) iron deficiency anemia stable, continue iron pill (8) urine retention stable. No Dennison needed in hospital. (9) weakness improved. continue PT/OT in SNF - HPI History of Present Illness: Ms. Lundberg is 88-yrs old female with a PMH significant for vertigo, CKD, breast cancer, status post right mastectomy on 2004, chronic malnutrition, who present ER complain of right hip pain after her fall. Pt report her birthday was yesterday. Today she and her friend come to [employer] at [place]. She Was tripped over a beba outside the door, fell onto left hip on concrete. She denies hitting head or other injuries. She also denies loss of conscious when she had a fall. She report she was so painful and she can not move outward rotation of left foot, unable to bear weight. Xray of hip reveals transcervical left femoral neck of fracture. Her lab reveals elevated WBC. Except mild elevated BP, pt is hemodynamically stable. Dr. Maharaj was called and consulted, planned to have surgery on tomorrow. - CONSULTS | PROCEDURES Consultations: Dr. Maharaj, orthopedics Procedures: hip repair - HOSPITAL COURSE Hospital Course: pt was admitted for fall and hip injury. pt was found to have left hip fracture. repaired hip for pt. Pt continue to have PT/OT evaluation and treatment. Pt was recommended to d/c SNF for continue PT/OT/ST training. pt was found to have leukocytosis in the admission, and stable, without "B" symptoms, no fever, bleeding. Pt reported her leukocytosis medical condition had about one year, Her PCP is seeking medical attention, etiology has unknown. recommend to followup electric knife operator as out-pt. - ALLERGIES Allergies/Adverse Reactions: Allergies Allergy/AdvReac Type Severity Reaction Status Date / Time nitrofurantoin Allergy Rash Verified 08/28/18 13:22 macrocrystalline * [From Macrodantin] - MEDICATIONS Home Medications: Ambulatory Orders Medication Instructions Recorded Confirmed Biotin 5,000 mcg PO DAILY 05/10/13 08/28/18 Cholecalciferol (Vitamin D3) 400 unit PO DAILY 05/10/13 08/28/18 [Vitamin D3] Dextran 70/Hypromellose 1 each OP DAILY 05/10/13 08/28/18 [Artificial Tears] Lactobacillus Rhamnosus GG 1 each PO DAILY 05/10/13 08/28/18 [Probiotic] Multivitamin [Multivitamins] 1 each PO DAILY 05/10/13 08/28/18 Oregano Oil [Oil of Oregano] 1,500 mg PO DAILY 05/10/13 08/30/18 Ubidecarenone [Coq-10] 100 mg PO DAILY 05/10/13 08/28/18 Vitamin B Complex [B Complex] 1 each PO DAILY 05/10/13 08/28/18 Vitamin E 400 unit PO DAILY 05/10/13 08/28/18 Aspirin EC [Ecotrin] 325 mg PO DAILY #10 tablet 09/02/18 Ferrous Sulfate 325 mg PO DAILY #15 tablet 09/02/18 oxyCODONE [Roxicodone] 5 mg PO Q4-6H PRN #15 tablet 09/02/18 - PHYSICAL EXAM AT DISCHARGE General Appearance: positive: No acute distress, Alert. negative: Lethargic Eyes Bilateral: positive: Normal inspection, PERRL, No lid inflammation, Conjunctivae nml ENT: positive: ENT inspection nml, Pharynx nml, No signs of dehydration. negative: Purulent nasal drainage, Pharyngeal erythema, Oral lesions Neck: positive: Nml inspection, Thyroid nml, No JVD, Trachea midline. negative: Thyromegaly, Lymphadenopathy (R), Lymphadenopathy (L), Stiff neck, Swelling/bruising, Tracheal deviation Respiratory: positive: Chest non-tender, No respiratory distress. negative: Wheezes, Rales, Rhonchi Cardiovascular: positive: Regular rate & rhythm, No murmur, No gallop. negative: Irregularly irregular, Extrasystoles, Tachycardia, Bradycardia, JVD present, Systolic murmur, Diastolic murmur Peripheral Pulses: positive: 2+ Abdomen: positive: Non-tender, No organomegaly, Nml bowel sounds, No distention. negative: Tenderness, Guarding, Rebound Back: positive: Nml inspection. negative: CVA tenderness (R), CVA tenderness (L) Skin: positive: Color nml, No rash, Warm, Dry. negative: Cyanosis, Diaphoresis, Pallor Extremities: positive: Non-tender, Full ROM, Nml appearance. negative: Calf tenderness, Joint swelling, Kim's sign/cords Neurologic/Psychiatric: positive: Oriented x3, Motor nml, Sensation nml. negative: Weakness, Sensory loss, Facial droop, Slurred/abnml speech, Depressed mood/affect - LABS Result Diagrams: 09/02/18 06:11 09/02/18 06:11 - SEPSIS Current Stage of Sepsis: Ruled out Possible source of Sepsis: Genitourinary Sepsis Criteria: WBC count greater than 12,000 or less than 4000 - FOLLOW UP Follow Up: pt may followup admission provider at [facility] when pt is arrival to [facility]. Pt may followup Dr. Maharaj orthopedics office in 2 wks. Pt may have Silver dressing on hip to be left in place for next 7 days, then d/c. Pt may continue PT/OT/ST at [facility]. Pt may followup electric knife operator as out-pt. Pt report she had leukocytosis for about one year. Today her WBC is 17.3, please continue monitor pt closely. - TIME SPENT Time Spent in Discharge (Minutes): 60
[2018-09-02 15:36] VITALS: BP 119/49
[2019-06-29] MEDS ORDERED: PROPOFOL 200 MG/20 ML VIAL IVP ONE (11:56)
[2019-06-29] MEDS ORDERED: fentaNYL 100 MCG/2 ML VIAL IVP ONE (11:56)
[2019-06-29] MEDS ORDERED: SODIUM CHLORIDE 0.9% 100 ML BAG IV ONE (11:56)
[2019-06-29] MEDS ORDERED: ePHEDrine 50 MG/ML AMP IVP ONE (11:56)
[2019-06-29] MEDS ORDERED: ceFAZolin 1 GM VIAL IV ONE (11:56)
[2019-06-29] MEDS ORDERED: PHENYLEPHRINE 50 MG/5 ML VIAL IV ONE (11:56)
[2019-06-29] MEDS ORDERED: ROCURONIUM 50 MG/5 ML VIAL IVP ONE (11:56)
== END 2018-09-02 15:52 | DRG 470 ==
LOC: EDUNIT# → ED 13:14 → MS2 16:09
PROVIDERS: ADMIT Nurse Practitioner Gerontology; ATTEND Nurse Practitioner Gerontology
PROC: 0SRB0J9 Replacement of Left Hip Joint with Synthetic Substitute, Cemented, Open Approach (ICD-10-PCS; principal; 2018-08-29 10:15)
DX: S72.032A Displaced midcervical fracture of left femur, initial encounter for closed fracture (principal); E46 Unspecified protein-calorie malnutrition; Z68.1 Body mass index [BMI] 19.9 or less, adult; R64 Cachexia; N39.0 Urinary tract infection, site not specified; W19.XXXA Unspecified fall, initial encounter; I12.9 Hypertensive chronic kidney disease with stage 1 through stage 4 chronic kidney disease, or unspecified chronic kidney disease; N18.3 Chronic kidney disease, stage 3 (moderate); R42 Dizziness and giddiness; D72.829 Elevated white blood cell count, unspecified; R05 Cough; D50.9 Iron deficiency anemia, unspecified; R33.9 Retention of urine, unspecified; Z90.11 Acquired absence of right breast and nipple; Z85.3 Personal history of malignant neoplasm of breast; H54.7 Unspecified visual loss; R32 Unspecified urinary incontinence; R35.0 Frequency of micturition; Z90.49 Acquired absence of other specified parts of digestive tract; Z66 Do not resuscitate; B96.89 Other specified bacterial agents as the cause of diseases classified elsewhere; H26.9 Unspecified cataract
CPT/HCPCS: 36415; 51702; 70450; 71045; 80048; 80053; 81001; 81270; 82607; 82728; 83540; 83615; 83735; 84466; 85014; 85018; 85025; 85044; 86850; 86900; 86901; 87086; 93005; 93306; 99283; 99284; 99285

== ENCOUNTER 2018-09-12 08:00 | Outpatient (CLI) | payer MEDICARE, MEDICAID ==
[2018-09-12 20:19] LABS: BASOPHILS # (AUTO) 0.1 10^3/uL (0.0-0.1); EOSINOPHILS # (AUTO) 0.1 10^3/uL (0.0-0.7); LYMPHOCYTES # (AUTO) 2.3 10^3/uL (1.5-3.5); WHITE BLOOD COUNT 13.7 x10^3/uL (4.8-10.8)
[2018-09-12 20:24] LABS: BASOPHILS % (AUTO) 0.9 %; EOSINOPHILS % (AUTO) 0.7 %; HGB - HEMOGLOBIN 10.5 g/dL (12.0-16.0); LYMPHOCYTES % (AUTO) 16.8 %; MEAN CORPUSCULAR HEMOGLOBIN 27.1 pg (27.0-31.0); MEAN CORPUSCULAR VOLUME 84.7 fL (81.0-99.0); MEAN PLATELET VOLUME 8.1 fL (7.9-10.8); MONOCYTES # (AUTO) 1.3 10^3/uL (0.0-1.0); MONOCYTES % (AUTO) 9.4 %; NEUTROPHILS # (AUTO) 9.9 10^3/uL (1.5-6.6); NEUTROPHILS % (AUTO) 72.2 %; RED BLOOD COUNT 3.86 10^6/uL (4.20-5.40); RED CELL DISTRIBUTION WIDTH 18.1 % (12.0-15.0)
[2018-09-12 20:29] LABS: CALCIUM 9.5 mg/dL (8.5-10.3); CREATININE 1.1 mg/dL (0.4-1.0)
[2018-09-12 22:42] LABS: PLT - PLATELET COUNT 886 10^3/uL (130-450)
== END 2018-09-12 23:59 | disposition home or self-care (01) ==
LOC: LAB.R 08:00
DX: I12.9 Hypertensive chronic kidney disease with stage 1 through stage 4 chronic kidney disease, or unspecified chronic kidney disease (principal); N18.9 Chronic kidney disease, unspecified; D72.829 Elevated white blood cell count, unspecified
CPT/HCPCS: 80048; 85025

== ENCOUNTER 2018-09-19 08:00 | Outpatient (CLI) | payer MEDICARE, MEDICAID ==
[2018-09-19 19:39] LABS: BASOPHILS # (AUTO) 0.1 10^3/uL (0.0-0.1); BASOPHILS % (AUTO) 0.5 %; EOSINOPHILS % (AUTO) 0.2 %; HGB - HEMOGLOBIN 11.2 g/dL (12.0-16.0); LYMPHOCYTES # (AUTO) 2.4 10^3/uL (1.5-3.5); LYMPHOCYTES % (AUTO) 20.1 %; MEAN CORPUSCULAR HEMOGLOBIN 28.7 pg (27.0-31.0); MEAN CORPUSCULAR HGB CONC 33.7 g/dL (32.0-36.0); MEAN CORPUSCULAR VOLUME 85.2 fL (81.0-99.0); MEAN PLATELET VOLUME 7.9 fL (7.9-10.8); MONOCYTES # (AUTO) 1.1 10^3/uL (0.0-1.0); MONOCYTES % (AUTO) 9.8 %; NEUTROPHILS # (AUTO) 8.1 10^3/uL (1.5-6.6); NEUTROPHILS % (AUTO) 69.4 %; PLT - PLATELET COUNT 551 10^3/uL (130-450); RED CELL DISTRIBUTION WIDTH 18.7 % (12.0-15.0); WHITE BLOOD COUNT 11.7 x10^3/uL (4.8-10.8)
== END 2018-09-19 23:59 | disposition home or self-care (01) ==
LOC: LAB.R 08:00
DX: D72.829 Elevated white blood cell count, unspecified (principal); D68.69 Other thrombophilia
CPT/HCPCS: 85025

== ENCOUNTER 2018-10-21 09:09 | Outpatient (CLI) | payer MEDICARE, MEDICAID | END 2018-10-21 09:10 | disposition critical access hospital (66) | LOC: EMS 09:09 | PROVIDERS: ATTEND Surgery | DX: R06.02 Shortness of breath (principal) | CPT/HCPCS: A0425; A0429 ==

== ENCOUNTER 2018-10-21 09:13 | Inpatient (IN) | payer MEDICARE, MEDICAID ==
[2018-10-21] MEDS ORDERED: KETOROLAC 15 MG/ML VIAL IVP STA (09:29)
[2018-10-21] MEDS ORDERED: SODIUM CHLORIDE 0.9% 1,000 ML IV ONE ×2 (09:29→11:29)
[2018-10-21] MEDS ORDERED: ALBUTEROL NEB 2.5 MG/3 ML INH STA ×2 (09:29→11:17)
[2018-10-21] MEDS ORDERED: ACETAMINOPHEN 1,000 MG/100 ML 100 ML IV STA (09:29)
--- NOTE | 2018-10-21 09:30 | ED Physician Documentation ---
PD HPI URI - Stated complaint Stated Complaint: RESPIRATORY DISTRESS - Chief complaint Chief Complaint: Resp - History obtained from History obtained from: Patient, EMS, Caregiver ([facility]) - History of Present Illness Timing - onset: How many days ago (several days of cough and some congestion, with worsening cough and fevers now. Was less interactive today and had low sats.) Timing duration: Days Timing details: Gradual onset, Still present Associated symptoms: Fever, Nasal congestion, Productive cough. No: NVD, Bilateral edema Contributing factors: No: Sick contact, Travel Worsened by: Activity Recently seen: Surgery (She had a fall with a hip fracture in early January and has been recovering at [facility]. She had lived alone at home prior to that. She reportedly had been doing okay until this past several days with cough and fever.) Review of Systems Ten Systems: 10 systems reviewed and negative Constitutional: reports: Fever Nose: reports: Congestion Cardiac: denies: Chest pain / pressure Respiratory: reports: Dyspnea, Cough GI: denies: Vomiting, Diarrhea Neurologic: reports: Generalized weakness, Confused (today). denies: Focal weakness, Syncope PD PAST MEDICAL HISTORY - Past Medical History Cardiovascular: None Respiratory: Pneumonia Neuro: None Endocrine/Autoimmune: None GI: None AGRONOMY ADVISOR: None : Incontinence, Frequency HEENT: Chronic vision loss Psych: None Musculoskeletal: None Derm: None - Past Surgical History Past Surgical History: Yes General: Appendectomy HEENT: Cataracts - Present Medications Home Medications: Ambulatory Orders Medication Instructions Recorded Confirmed Biotin 5,000 mcg PO DAILY 05/10/13 10/21/18 Cholecalciferol (Vitamin D3) 400 unit PO DAILY 05/10/13 10/21/18 [Vitamin D3] Dextran 70/Hypromellose 1 each OP DAILY 05/10/13 10/21/18 [Artificial Tears] Lactobacillus Rhamnosus GG 1 each PO DAILY 05/10/13 10/21/18 [Probiotic] Multivitamin [Multivitamins] 1 each PO DAILY 05/10/13 10/21/18 Oregano Oil [Oil of Oregano] 1,500 mg PO DAILY 05/10/13 10/21/18 Ubidecarenone [Coq-10] 100 mg PO DAILY 05/10/13 10/21/18 Vitamin B Complex [B Complex] 1 each PO DAILY 05/10/13 10/21/18 Vitamin E 400 unit PO DAILY 05/10/13 10/21/18 Aspirin EC [Ecotrin] 325 mg PO DAILY #10 tablet 09/02/18 10/21/18 Ferrous Sulfate 325 mg PO DAILY #15 tablet 09/02/18 10/21/18 Acetaminophen [8Hr Arthritis Pain] 650 mg PO QID 10/21/18 10/21/18 Albuterol 2.5 mg INH Q4H PRN 10/21/18 10/21/18 Calcium Carbonate [Tums (Calcium 500 mg PO Q4-6H 10/21/18 10/21/18 Carbonate 500mg)] Docusate Sodium 100 mg PO DAILY 10/21/18 10/21/18 Melatonin 5 mg PO DAILY 10/21/18 10/21/18 - Allergies Allergies/Adverse Reactions: Allergies Allergy/AdvReac Type Severity Reaction Status Date / Time nitrofurantoin Allergy Rash Verified 10/21/18 09:29 macrocrystalline * [From Macrodantin] - Social History Does the pt smoke?: No Smoking Status: Never smoker Does the pt drink ETOH?: Yes Does the pt have substance abuse?: No - Immunizations Immunizations are current?: No - POLST Patient has POLST: No PD ED PE NORMAL - Vitals Vital signs reviewed: Yes - General General: Alert and oriented X 3, Well developed/nourished, Other (weak verbal responses with simple answers. Tachypnea. Thin and frail appearing. ) - HEENT HEENT: Ears normal, Pharynx benign. No: Moist mucous membranes - Neck Neck: Supple, no meningeal sign, No adenopathy - Cardiac Cardiac: RRR, No murmur - Respiratory Respiratory: No: Clear bilaterally (somewhat coarse in bases. Clearer at apices. Mild expiratory wheezing. ) - Abdomen Abdomen: Soft, Non tender - Back Back: No CVA TTP - Derm Derm: Normal color, Warm and dry - Extremities Extremities: Normal ROM s pain, No edema, No calf tenderness / cord - Neuro Neuro: No motor deficit Results - Vitals Vitals: Vital Signs - 24 hr 10/21/18 10/21/18 10/21/18 09:20 09:36 09:48 Temperature 39.8 C H 38.6 C H Heart Rate 93 84 84 Respiratory 30 H 14 26 H Rate Blood Pressure 148/66 H 142/56 H O2 Saturation 94 99 10/21/18 10:56 Temperature 37.6 C H Heart Rate 93 Respiratory 25 H Rate Blood Pressure 111/48 L O2 Saturation 96 Oxygen O2 Source Nasal cannula Oxygen Flow Rate 2 - Labs Labs: Laboratory Tests 10/21/18 10/21/18 10/21/18 09:50 09:50 09:50 WBC 17.4 H RBC 3.63 L Hgb 10.1 L Hct 31.3 L MCV 86.1 MCH 27.8 MCHC 32.3 RDW 18.5 H Plt Count 417 MPV 7.8 L Neut # (Auto) 14.8 H Lymph # (Auto) 0.7 L Scott # (Auto) 1.8 H Eos # (Auto) 0.0 Baso # (Auto) 0.1 Absolute Nucleated RBC 0.00 Nucleated RBC % 0.0 Manual Slide Review Indicated Platelet Estimate NORMAL (130-450,000) Platelet Morphology NORMAL APPEARANCE RBC Morph Micro Appear NORMAL APPEARANCE Sodium 134 L Potassium 3.8 Chloride 97 L Carbon Dioxide 24 Anion Gap 13.0 BUN 35 H Creatinine 1.3 H Estimated GFR (MDRD) 39 L Glucose 172 H Lactic Acid Calcium 8.8 Total Bilirubin 0.6 AST 33 ALT 15 Alkaline Phosphatase 66 B-Natriuretic Peptide 1531 H Total Protein 7.9 Albumin 3.3 Globulin 4.6 H Albumin/Globulin Ratio 0.7 L Lipase 21 L Influenza A (Rapid) Influenza B (Rapid) 10/21/18 10/21/18 09:50 10:20 WBC RBC Hgb Hct MCV MCH MCHC RDW Plt Count MPV Neut # (Auto) Lymph # (Auto) Scott # (Auto) Eos # (Auto) Baso # (Auto) Absolute Nucleated RBC Nucleated RBC % Manual Slide Review Platelet Estimate Platelet Morphology RBC Morph Micro Appear Sodium Potassium Chloride Carbon Dioxide Anion Gap BUN Creatinine Estimated GFR (MDRD) Glucose Lactic Acid 2.5 H Calcium Total Bilirubin AST ALT Alkaline Phosphatase B-Natriuretic Peptide Total Protein Albumin Globulin Albumin/Globulin Ratio Lipase Influenza A (Rapid) POSITIVE H Influenza B (Rapid) Negative - Rads (name of study) chest xray Radiology: Prelim report reviewed (coarse interstitial changes, chronic and stable. No infiltrate noted per se. ) PD MEDICAL DECISION MAKING - ED course Complexity details: reviewed results (She is appearing ill. She is breathing a bit better with the nebulizer treatment. There is still a lot of congestion. Her oxygenation is still slightly hypoxic on room air. At this point we would have her in the hospital with continued treatment targeted at respiratory status. She may have a concurrent pneumonia with the flu given her symptoms.), re-evaluated patient, considered differential (She is having high fever with cough and difficulty breathing. We will get chest x-ray and blood tests. Will do flu swab. She has been in [facility] recovering for 2 months from a hip surgery. She does not have any stigmata to suggest PE nor heart failure. She does have a fever.), d/w patient Departure - Departure Disposition: [facility] DC/Xfer Clinical Impression: Hypoxemia, Influenza A Dyspnea Qualifiers: Dyspnea type: shortness of breath Qualified Code(s): R06.02 - Shortness of breath; R06.00 - Dyspnea, unspecified; R06.01 - Orthopnea Pneumonia Qualifiers: Pneumonia type: due to unspecified organism Laterality: unspecified laterality Lung location: unspecified part of lung Qualified Code(s): J18.9 - Pneumonia, unspecified organism Condition: Stable Record reviewed to determine appropriate education?: Yes
[2018-10-21] MEDS ORDERED: cefTRIAXone 1 GM VIAL IVP STA (10:02)
[2018-10-21] MEDS ORDERED: AZITHROMYCIN INJ 500 MG in SODIUM CHLORIDE 0.9% 250 ML IV STA (10:02)
[2018-10-21 10:05] LABS: BASOPHILS # (AUTO) 0.1 10^3/uL (0.0-0.1); BASOPHILS % (AUTO) 0.4 %; HGB - HEMOGLOBIN 10.1 g/dL (12.0-16.0); LYMPHOCYTES # (AUTO) 0.7 10^3/uL (1.5-3.5); MEAN CORPUSCULAR HEMOGLOBIN 27.8 pg (27.0-31.0); MEAN CORPUSCULAR HGB CONC 32.3 g/dL (32.0-36.0); MEAN CORPUSCULAR VOLUME 86.1 fL (81.0-99.0); MEAN PLATELET VOLUME 7.8 fL (7.9-10.8); MONOCYTES # (AUTO) 1.8 10^3/uL (0.0-1.0); MONOCYTES % (AUTO) 10.5 %; NEUTROPHILS # (AUTO) 14.8 10^3/uL (1.5-6.6); NEUTROPHILS % (AUTO) 85.1 %; PLT - PLATELET COUNT 417 10^3/uL (130-450); RED BLOOD COUNT 3.63 10^6/uL (4.20-5.40); RED CELL DISTRIBUTION WIDTH 18.5 % (12.0-15.0); WHITE BLOOD COUNT 17.4 x10^3/uL (4.8-10.8)
[2018-10-21 10:13] LABS: ALBUMIN 3.3 g/dL (3.2-5.5); ALBUMIN/GLOBULIN RATIO 0.7 (1.0-2.2); BILIRUBIN,TOTAL 0.6 mg/dL (0.2-1.0); CALCIUM 8.8 mg/dL (8.5-10.3); CREATININE 1.3 mg/dL (0.4-1.0); TOTAL PROTEIN 7.9 g/dL (6.7-8.2)
--- NOTE | 2018-10-21 10:18 | XRAY Report ---
Reason: chest pain Procedure Date: 10/21/2018 Accession Number: [id number] / [id number] Procedure: XR - Chest 1 View X-Ray CPT Code: 56613 FULL RESULT: EXAM: CHEST RADIOGRAPHY EXAM DATE: 10/21/2018 09:44 AM. CLINICAL HISTORY: Chest pain. COMPARISON: CHEST 1 VIEW 08/30/2018 7:26 AM. CHEST 2 VIEW PA/LAT 05/10/2013 11:25 AM. CHEST 1 VIEW 08/28/2018 2:33 PM. TECHNIQUE: 1 view. FINDINGS: Lungs/Pleura: Stable appearance of thin-walled cystic airspaces in the right upper and lateral lung; possible air-fluid level within largest cystic space in the right lung apex. Possible cylindrical bronchiectasis noted in the right upper lung. Chronic stable blunting of the right lateral costophrenic sulcus new since 2012. Nonspecific coarse interstitial opacities in the affected right upper lung. Left lung appears clear. Mediastinum: Within exam limitations, the cardiomediastinal contour is normal. Other: S-shaped long thoracic scoliosis. IMPRESSION: Nonspecific thin-walled cystic airspaces in the right upper and midlung as described. Possible air-fluid level associated with finding in the right lung apex. Probable associated bronchiectasis. A more definitive assessment could be performed with CT as clinically appropriate. RADIA
[2018-10-21 10:53] LABS: PLATELET ESTIMATE, MANUAL NORMAL (130-450,000) (NORMAL); PLATELET MORPHOLOGY NORMAL APPEARANCE (NORMAL); RBC MORPHOLOGY (MULTIPLE) NORMAL APPEARANCE (NORMAL)
[2018-10-21] MEDS ORDERED: OSELTAMIVIR 75 MG CAPSULE PO STA (11:00)
[2018-10-21] MEDS ORDERED: PROCHLORPERAZINE 10 MG/2 ML VIAL IVP PRN (12:26)
[2018-10-21] MEDS: MEROPENEM 1 GM in SODIUM CHLORIDE 0.9% MINIBAG 100 ML IV SCH (14:07)
[2018-10-21] MEDS: SODIUM CHLORIDE 0.9% 1,000 ML IV SCH (14:07)
[2018-10-21] MEDS: SODIUM CHLORIDE FLUSH 0.9% 10 ML SYRINGE IVP PRN (14:08)
[2018-10-21] MEDS: CARBOXYMETHYLCELLULOSE OPHTH DROPS EACHEYE PRN (14:55)
[2018-10-21] MEDS: SODIUM CHLORIDE FLUSH 0.9% 10 ML SYRINGE IVP SCH (15:52)
[2018-10-21] MEDS: FLUCONAZOLE 100 MG TABLET PO SCH ×2 (16:25→17:35)
[2018-10-21 17:21] LABS: BILIRUBIN,URINE NEGATIVE (NEGATIVE); GLUCOSE, URINE (UA) 100 mg/dL (NEGATIVE); KETONES,URINE (UA) TRACE mg/dL (NEGATIVE); LEUKOCYTE ESTERASE, URINE NEGATIVE (NEGATIVE); NITRITE,URINE NEGATIVE (NEGATIVE); OCCULT BLOOD,URINE TRACE-INTA (NEGATIVE); PROTEIN,URINE 100 mg/dL (NEGATIVE); UROBILINOGEN,URINE 0.2 (NORMAL) E.U./dL (NORMAL)
[2018-10-21 17:29] LABS: CLARITY,URINE CLEAR (CLEAR)
[2018-10-21 17:49] LABS: BACTERIA,URINE Few /HPF (None Seen); CASTS, URINE 0-2 Fine Granular /LPF; RBC,URINE 0-5 /HPF (0-5); SQUAMOUS EPITHELIAL CELL,UR FEW Squamous (<= Few)
[2018-10-21 17:50] LABS: YEAST,URINE PRESENT
[2018-10-21] MEDS: SACCHAROMYCES BOULARDII 250 MG CAPSULE PO SCH (18:39)
--- NOTE | 2018-10-21 18:40 | HISTORY & PHYSICAL EXAMINATION ---
DATE OF SERVICE: 10/21/2018 Physician: Belén Givens MD HISTORY OF PRESENT ILLNESS: This is an 88-year-old white female with history of dementia, has DNR status, and wishes limited medical care documented in a signed POLST. The patient developed a cough, fever and chills and shortness of breath over the past three days. Because of worsening symptoms, she presented to the emergency room. Here she was found to have desaturations of 80% and audible wheezing and an influenza swab is showing she is positive for influenza A. The patient has been living at [facility] since the past two months, when she was placed there for rehabilitation after a hip fracture that was repaired and now she has become a resident there. There has not been complaints of orthopnea, angina, palpitations, or syncope. The patient gives a poor history because of her dementia, and also her shortness of breath. She is answering with one word answers. ALLERGIES: NITROFURANTOIN. MEDICATIONS 1. Melatonin every night. 2. Refresh Tears p.r.n. 3. Vitamin E daily. 4. Vitamin B complex daily. 5. CoQ10 daily. 6. Oil of oregano daily. 7. Multivitamin daily. 8. Lactobacillus daily. 9. Iron sulfate 325 mg daily. 10. Colace 100 mg daily. 11. Vitamin D3 daily. 12. Tums 6 hours p.r.n. 13. Biotin daily. 14. Adult low-dose aspirin daily. 15. Albuterol inhaler q.4 hours p.r.n. 16. Tylenol Arthritis p.r.n. PAST MEDICAL HISTORY 1. Pneumonia that occurred perioperatively with the August hip fracture admission, and was treated. 2. Arthritis. 3. Memory loss. REVIEW OF SYSTEMS: A comprehensive review of systems was performed, and the pertinent positives are listed. The rest are negative. SOCIAL HISTORY: No smoking, alcohol, or drug use. She is now a resident of a detention. FAMILY HISTORY: No inherited diseases. PHYSICAL EXAMINATION GENERAL: Elderly white female. She is in moderate respiratory distress. VITAL SIGNS: Blood pressure 106/51, pulse of 82 in sinus rhythm, respiratory rate 28, O2 saturation on 2 liters nasal cannula is 94%. HEENT: Pursed lip breathing and tachypnea. Oral mucosa is moist. NECK: Without JVD. LUNGS: Diffuse rhonchi and scattered wheezes. CARDIAC: Heart sounds are distant. ABDOMEN: Soft. No tenderness. EXTREMITIES: No clubbing, cyanosis, or edema. NEUROLOGIC: Lethargic, moves all extremities LABORATORY/DATA Lactic acid 2.5, sodium 134, potassium 3.8, BUN 35, creatinine 1.3. BNP 1531. Liver tests and lipase are normal. White blood count 17.4 with a left shift, hemoglobin 10.1, platelet count normal at 417. Influenza swab was negative for influenza B but positive for influenza A. Chest x-ray shows marked abnormality of the right side, including cyst with air fluid levels that were seen on the August admission, but appear worse now. This is considered to be either bronchiectasis or atypical pneumonia with lung abscess. She has thoracic scoliosis. Sputum: Gram stain is showing gram-negative rods, gram-positive cocci, fungal elements and many white blood cells. EKG not done. Telemetry shows sinus rhythm. IMPRESSION/DIAGNOSES 1. Severe sepsis with elevation of lactic acid and lung infection appears to be the source. 2. Lung abscess. 3. Fungal infection of the upper respiratory tract. 4. Acute influenza A. 5. Acute respiratory failure with hypoxia. 6. Acute kidney injury. 7. Elevation of BNP, therefore possible CHF. PLAN 1. Admit the patient to med/surgical bed,monitor on telemetry at least for the first day. 2. Obtain blood cultures and sputum cultures, which have now been sent. Straight cath for a urinalysis. 3. Begin IV antibiotics, using meropenem for broad-spectrum coverage and especially to cover anaerobes because of the lung abscess. 4. Follow her chest x-ray serially for several days to assure improvement. 5. Supplemental oxygen will be used, nebulizers, IV steroids, Mucinex, and Florastor while she is on antibiotics. 6. Obtain an Echo to evaluate the left ventricular function for systolic heart failure, because of the very high elevation of BNP. 7. Troponin level has been done and is normal, indicating no acute coronary event to explain the high BNP. 8. Continue with her pre hospital medications that are necessary. 9. Start the patient on oral Diflucan because of the fungal elements in the sputum. 10 Respiratory isolation will be ordered because of the influenza A positive status. Deep venous thrombosis prophylaxis: SCDs. CODE STATUS: DNR and no aggressive and heroic measures have been requested, such as no transfers. ATTESTATION: The patient is expected to be discharged or transferred to another facility within 96 hours: Yes. TD: 10/21/2018 17:20 REVISED 10/22/2018 angela Text corrections Orig. signed 10/21/[id number] MTDD
[2018-10-21] MEDS ORDERED: OSELTAMIVIR 75 MG CAPSULE PO SCH (21:00)
[2018-10-21] MEDS: guaiFENesin 600 MG TABLET PO SCH (22:20)
[2018-10-21] MEDS ORDERED: OSELTAMIVIR 30 MG/5 ML SYRINGE PO SCH (22:36)
[2018-10-22] MEDS: SODIUM CHLORIDE 0.9% 1,000 ML IV SCH ×2 (00:24→11:24)
[2018-10-22] MEDS ORDERED: OSELTAMIVIR 30 MG CAPSULE PO SCH (01:37)
[2018-10-22] MEDS: MEROPENEM 1 GM in SODIUM CHLORIDE 0.9% MINIBAG 100 ML IV SCH ×2 (01:45→14:08)
[2018-10-22] MEDS: OSELTAMIVIR 30 MG CAPSULE PO SCH ×3 (01:47→20:25)
[2018-10-22] MEDS: ACETAMINOPHEN 325 MG TABLET PO PRN ×2 (02:00→16:20)
[2018-10-22] MEDS: SODIUM CHLORIDE FLUSH 0.9% 10 ML SYRINGE IVP SCH ×3 (02:03→16:28)
[2018-10-22] MEDS: PANTOPRAZOLE 40 MG TABLET PO SCH (06:26)
[2018-10-22 07:25] LABS: BASOPHILS % (AUTO) 0.1 %; HGB - HEMOGLOBIN 9.5 g/dL (12.0-16.0); LYMPHOCYTES # (AUTO) 1.4 10^3/uL (1.5-3.5); LYMPHOCYTES % (AUTO) 9.4 %; MEAN CORPUSCULAR HEMOGLOBIN 28.1 pg (27.0-31.0); MEAN CORPUSCULAR HGB CONC 32.2 g/dL (32.0-36.0); MEAN CORPUSCULAR VOLUME 87.2 fL (81.0-99.0); MEAN PLATELET VOLUME 7.7 fL (7.9-10.8); MONOCYTES # (AUTO) 0.6 10^3/uL (0.0-1.0); MONOCYTES % (AUTO) 3.8 %; NEUTROPHILS # (AUTO) 12.9 10^3/uL (1.5-6.6); NEUTROPHILS % (AUTO) 86.7 %; PLT - PLATELET COUNT 344 10^3/uL (130-450); RED BLOOD COUNT 3.39 10^6/uL (4.20-5.40); RED CELL DISTRIBUTION WIDTH 19.1 % (12.0-15.0); WHITE BLOOD COUNT 14.9 x10^3/uL (4.8-10.8)
[2018-10-22 07:29] LABS: CALCIUM 7.8 mg/dL (8.5-10.3)
[2018-10-22] MEDS: CARBOXYMETHYLCELLULOSE OPHTH DROPS EACHEYE PRN (07:36)
[2018-10-22] MEDS: FLUCONAZOLE 100 MG TABLET PO SCH (08:54)
[2018-10-22] MEDS: POLYETHYLENE GLYCOL 3350 17 GM PACKET PO SCH (08:54)
[2018-10-22] MEDS: guaiFENesin 600 MG TABLET PO SCH ×2 (08:54→20:25)
[2018-10-22] MEDS: DOCUSATE SODIUM 250 MG CAPSULE PO SCH (08:54)
[2018-10-22] MEDS: SACCHAROMYCES BOULARDII 250 MG CAPSULE PO SCH ×2 (08:54→16:20)
[2018-10-22] MEDS ORDERED: cefTRIAXone 1 GM in SODIUM CHLORIDE 0.9% MINIBAG 100 ML IV SCH (09:00)
[2018-10-22] MEDS ORDERED: AZITHROMYCIN INJ 500 MG in SODIUM CHLORIDE 0.9% 250 ML IV SCH (10:00)
--- NOTE | 2018-10-22 11:14 | PROVIDER PROGRESS NOTE ---
Assessment/Plan - Problem List (1) Lung abscess Assessment/Plan: Continue iv Meropenam at high dose, Flrastor and Mucinex and suctioning. (2) Sophia albicans infection Assessment/Plan: The upper airway infection has Sophia, from a rapidly growing sputum culture. Will continue Diflucan for a 7-10 day course. (3) Influenza A Assessment/Plan: Continue Tamiflu, respiratory isolation. Follow LFTs while on Tamiflu. (4) CKD (chronic kidney disease) Assessment/Plan: JOSUE has improved wuith iv hydration. She does have underlying CKD. Follow BMP daily. (5) HTN (hypertension) Assessment/Plan: Stable on home meds. (6) Anemia Assessment/Plan: It is partly hemodilutional. Will obtain B12, Folate and Iron panel and guiac stool. Replace if needed. (7) Lactic acidosis Assessment/Plan: Resolved with iv hydration and treating infections. - Current Meds Current Meds: Current Medications Generic Name Dose Route Start Last Admin Trade Name Freq PRN Reason Stop Dose Admin Acetaminophen 650 mg 10/21/18 12:26 10/22/18 02:00 Tylenol PO 650 mg Q4HR PRN Administration Pain or Fever > 38C (100.4F) Carboxymethylcellulose 1 drops 10/21/18 13:59 10/22/18 07:36 Refresh 1% Ophth Drops EACHEYE 1 drops PRN PRN Administration Dry Eye Docusate Sodium 250 - 500 mg 10/22/18 09:00 10/22/18 08:54 Colace 250mg Capsule PO 250 mg DAILY GEORGETTE Administration Fluconazole 100 mg 10/21/18 16:00 10/22/18 08:54 Diflucan PO 100 mg DAILY GEORGETTE Administration Guaifenesin 600 mg 10/21/18 21:00 10/22/18 08:54 Mucinex PO 600 mg BID GEORGETTE Administration Sodium Chloride 1,000 mls @ 100 mls/hr 10/21/18 13:00 10/22/18 00:24 Normal Saline 0.9% IV 100 mls/hr .Q10H GEORGETTE Administration Meropenem 1 gm/ Sodium 100 mls @ 200 mls/hr 10/21/18 14:00 10/22/18 02:17 Chloride IV Infused Q12H GEORGETTE Infusion Oseltamivir Phosphate 30 mg 10/22/18 02:00 10/22/18 08:57 Tamiflu PO 10/26/18 09:01 30 mg BID GEORGETTE Administration Pantoprazole Sodium 40 mg 10/22/18 07:00 10/22/18 06:26 Protonix PO 40 mg QDAC GEORGETTE Administration Polyethylene Glycol 17 gm 10/22/18 09:00 10/22/18 08:54 Miralax PO 17 gm DAILY GEORGETTE Administration Saccharomyces Boulardii 250 mg 10/21/18 18:00 10/22/18 08:54 Florastor PO 250 mg BIDWM GEORGETTE Administration Sodium Chloride 10 ml 10/21/18 12:26 10/21/18 14:08 Normal Saline Flush 0.9% IVP 10 ml PRN PRN Administration NEEDED PER PROVIDER ORDERS Sodium Chloride 10 ml 10/21/18 17:00 10/22/18 08:57 Normal Saline Flush 0.9% IVP Not Given 0100,0900,1700 GEORGETTE - Lab Result Fish Bone Diagrams: 10/22/18 07:05 10/22/18 07:05 - Additional Planning My Orders: My Active Orders 10/21/18 12:26 Initiate Bronchodialator Flores [RC] .PROTOCOL Initiate Line Care Protocol [RC] .protocol Initiate Lung Inflation Protoc [RC] .PROTOCOL Initiate Secretion Clearance P [RC] .PROTOCOL Telemetry (24 Hour) [RC] Q4HR Acetaminophen [Tylenol] 650 mg PO Q4HR PRN Prochlorperazine Inj [Compazine Inj] 10 mg IVP Q6HR PRN Sodium Chloride Flush 0.9% [Normal Saline Flush 0.9%] 10 ml IVP PRN PRN 10/21/18 12:27 Activity Orders [RC] Q2HR IO [RC] IOSHIFT Initiate Bowel Care Protocol [RC] .protocol Initiate Line Care Protocol [RC] QSHIFT Initiate Personal Care Protoco [RC] .protocol Oxygen Therapy [RC] Routine Vital Signs [RC] 0800,1600,0000 Code Status [OTHERS] Routine Condition of Patient [OTHERS] Routine DVT Prophylaxis [OTHERS] Routine 10/21/18 12:33 Daily Weight [RC] 0600 IV Insert [RC] .ONCE 10/21/18 12:35 Incentive Spirometry - RT [RC] Routine SCDs [RC] QSHIFT 10/21/18 13:00 Sodium Chloride 0.9% [Normal Saline 0.9%] 1,000 ml IV 100 mls/hr 10/21/18 13:47 Echo Limited [ECHO] Routine 10/21/18 13:59 Carboxymethylcellulose 1% Opht [Refresh 1% Ophth Drops] 1 drops EACHEYE PRN PRN Zinc Oxide 20% Oint [Zinc Oxide] 1 applic TOP PRN PRN 10/21/18 14:00 Meropenem [Merrem] 1 gm Sodium Chloride 0.9% Minibag [Normal Saline 0.9% Minibag] 100 ml IV Q12H 10/21/18 14:34 Nutrition Consult [CONS] Routine 10/21/18 14:50 CUL, RESPIRATORY [RM] Urgent 10/21/18 16:00 Fluconazole [Diflucan] 100 mg PO DAILY 10/21/18 16:21 Straight Catheter Insertion [RC] ONCE 10/21/18 17:00 Sodium Chloride Flush 0.9% [Normal Saline Flush 0.9%] 10 ml IVP 0100,0900,1700 10/21/18 18:00 Saccharomyces Boulardii [Florastor] 250 mg PO BIDWM 10/21/18 21:00 guaiFENesin [Mucinex] 600 mg PO BID 10/21/18 Dinner Soft Mechanical Diet [DIET] 10/22/18 02:00 Oseltamivir [Tamiflu] 30 mg PO BID 10/22/18 07:00 Pantoprazole [Protonix] 40 mg PO QDAC 10/22/18 09:00 Chest 1 View X-Ray [XR] DAILY Docusate Sodium 250Mg Capsule [Colace 250Mg Capsule] 250 - 500 mg PO DAILY Polyethylene Glycol 3350 [Miralax] 17 gm PO DAILY 10/23/18 09:00 Chest 1 View X-Ray [XR] DAILY Subjective - Subjective Patient Reports: Feeling Better, Resting Comfortably Nursing Reports: Other (Very demanding, oriented to person and place.) Objective Vital Signs: Vital Signs - 24 hr 10/21/18 10/21/18 10/21/18 11:33 13:26 13:44 Temperature 36.7 C Heart Rate 86 82 Heart Rate [ 82 Brachial] Respiratory 14 28 H 22 Rate Blood Pressure 106/51 L Blood Pressure 107/50 L [Left Brachial artery] O2 Saturation 94 93 03/02/19 03/02/19 03/03/19 15:34 20:00 00:00 Temperature 36.5 C 36.4 C L Heart Rate Heart Rate [ 80 81 74 Brachial] Respiratory 24 22 22 Rate Blood Pressure Blood Pressure 105/44 L 108/40 L 121/50 L [Left Brachial artery] O2 Saturation 93 95 92 10/22/18 10/22/18 10/22/18 01:30 04:33 07:32 Temperature 37.1 C 36.8 C 36.5 C Heart Rate Heart Rate [ 74 70 71 Brachial] Respiratory 20 23 24 Rate Blood Pressure Blood Pressure 102/47 L 99/61 [Left Brachial artery] O2 Saturation 94 92 93 Oxygen O2 Source Room air Oxygen Flow Rate 2 I&O (Last 24 Hrs): Intake and Output Totals x24h 10/20/18 10/21/18 10/22/18 23:59 23:59 23:59 Intake Total 2850 1885 Output Total 1200 300 Balance 1650 1585 General: Alert, Other (She is able to suction her own sputum and is actively doing it.) HEENT: Mucous membr. moist/pink Neck: Supple Neuro: Non Focal Cardiovascular: Regular rate Respiratory: Other (Rales on R) Abdomen: Soft Extremities: No edema - Results Results: Laboratory Results WBC 14.9 x10^3/uL (4.8-10.8) H 10/22/18 07:05 RBC 3.39 10^6/uL (4.20-5.40) L 10/22/18 07:05 Hgb 9.5 g/dL (12.0-16.0) L 10/22/18 07:05 Hct 29.6 % (37.0-47.0) L 10/22/18 07:05 MCV 87.2 fL (81.0-99.0) 10/22/18 07:05 MCH 28.1 pg (27.0-31.0) 10/22/18 07:05 MCHC 32.2 g/dL (32.0-36.0) 10/22/18 07:05 RDW 19.1 % (12.0-15.0) H 10/22/18 07:05 Plt Count 344 10^3/uL (130-450) 10/22/18 07:05 MPV 7.7 fL (7.9-10.8) L 10/22/18 07:05 Neut # (Auto) 12.9 10^3/uL (1.5-6.6) H 10/22/18 07:05 Lymph # (Auto) 1.4 10^3/uL (1.5-3.5) L 10/22/18 07:05 [place] # (Auto) 0.6 10^3/uL (0.0-1.0) 10/22/18 07:05 Eos # (Auto) 0.0 10^3/uL (0.0-0.7) 10/22/18 07:05 Baso # (Auto) 0.0 10^3/uL (0.0-0.1) 10/22/18 07:05 Absolute Nucleated RBC 0.00 x10^3/uL 10/22/18 07:05 Nucleated RBC % 0.0 /100WBC 10/22/18 07:05 Manual Slide Review Indicated 10/21/18 09:50 Platelet Estimate NORMAL (130-450,000) (NORMAL) 10/21/18 09:50 Platelet Morphology NORMAL APPEARANCE (NORMAL) 10/21/18 09:50 RBC Morph Micro Appear NORMAL APPEARANCE (NORMAL) 10/21/18 09:50 Sodium 133 mmol/L (135-145) L 10/22/18 07:05 Potassium 3.6 mmol/L (3.5-5.0) 10/22/18 07:05 Chloride 105 mmol/L (101-111) 10/22/18 07:05 Carbon Dioxide 21 mmol/L (21-32) 10/22/18 07:05 Anion Gap 7.0 (6-13) 10/22/18 07:05 BUN 31 mg/dL (6-20) H 10/22/18 07:05 Creatinine 1.0 mg/dL (0.4-1.0) 10/22/18 07:05 Estimated GFR (MDRD) 52 (>89) L 10/22/18 07:05 Glucose 73 mg/dL (70-100) 10/22/18 07:05 Lactic Acid 1.3 mmol/L (0.5-2.2) 10/21/18 13:10 Calcium 7.8 mg/dL (8.5-10.3) L 10/22/18 07:05 Total Bilirubin 0.6 mg/dL (0.2-1.0) 10/21/18 09:50 AST 33 IU/L (10-42) 10/21/18 09:50 ALT 15 IU/L (10-60) 10/21/18 09:50 Alkaline Phosphatase 66 IU/L (42-121) 10/21/18 09:50 B-Natriuretic Peptide 665 pg/mL (5-100) H 10/22/18 07:05 Total Protein 7.9 g/dL (6.7-8.2) 10/21/18 09:50 Albumin 3.3 g/dL (3.2-5.5) 10/21/18 09:50 Globulin 4.6 g/dL (2.1-4.2) H 10/21/18 09:50 Albumin/Globulin Ratio 0.7 (1.0-2.2) L 10/21/18 09:50 Lipase 21 U/L (22-51) L 10/21/18 09:50 Urine Color YELLOW 10/21/18 17:05 Urine Clarity CLEAR (CLEAR) 10/21/18 17:05 Urine pH 6.0 PH (5.0-7.5) 10/21/18 17:05 Ur Specific [place] 1.025 (1.002-1.030) 10/21/18 17:05 Urine Protein 100 mg/dL (NEGATIVE) H 10/21/18 17:05 Urine Glucose (UA) 100 mg/dL (NEGATIVE) H 10/21/18 17:05 Urine Ketones TRACE mg/dL (NEGATIVE) 10/21/18 17:05 Urine Occult Blood TRACE-INTA (NEGATIVE) 10/21/18 17:05 Urine Nitrite NEGATIVE (NEGATIVE) 10/21/18 17:05 Urine Bilirubin NEGATIVE (NEGATIVE) 10/21/18 17:05 Urine Urobilinogen 0.2 (NORMAL) E.U./dL (NORMAL) 10/21/18 17:05 Ur Leukocyte Esterase NEGATIVE (NEGATIVE) 10/21/18 17:05 Urine RBC 0-5 /HPF (0-5) 10/21/18 17:05 Urine WBC 0-3 /HPF (0-5) 10/21/18 17:05 Ur Squamous Epith Cells FEW Squamous (<= Few) 10/21/18 17:05 Urine Bacteria Few /HPF (None Seen) 10/21/18 17:05 Urine Casts 0-2 Fine Granular /LPF 10/21/18 17:05 Urine Yeast PRESENT 10/21/18 17:05 Ur Microscopic Review INDICATED 10/21/18 17:05 Urine Culture Comments NOT INDICATED 10/21/18 17:05 Influenza A (Rapid) POSITIVE (Negative) H 10/21/18 10:20 Influenza B (Rapid) Negative (Negative) 10/21/18 10:20 - Procedures Procedures: Procedures EXCISE AXILLARY NODE (05/15/13) REPLACE OF L HIP JT WITH SYNTH SUB, CEMENT, OPEN APPROACH (08/28/18) SUBTOTAL MASTECTOMY (05/15/13)
--- NOTE | 2018-10-22 13:17 | XRAY Report ---
Reason: F/U lung abscess Procedure Date: 10/22/2018 Accession Number: [id number] / [id number] Procedure: XR - Chest 1 View X-Ray CPT Code: 86701 FULL RESULT: EXAM: CHEST RADIOGRAPHY. EXAM DATE: 10/22/2018 09:01 AM. CLINICAL HISTORY: Follow up lung abscess. COMPARISON: Chest 1 view 10/21/2018 9:31 AM. TECHNIQUE: 1 view. FINDINGS: Lungs/Pleura: Stable appearance of thin-walled cystic airspaces in the right upper lung with at least one probable air-fluid level. There is mild apical and upper lateral pleural thickening versus loculated fluid now evident. There has been development of superimposed mild interstitial edema pattern and slight increase in small bilateral pleural effusions. No extra ventilatory air. Mediastinum: Within exam limitations, the cardiomediastinal contour is normal. Other: None. IMPRESSION: 1. Stable exam findings in the right upper lung as described. New adjacent mild pleural thickening and/or loculated fluid evident. 2. New superimposed mild interstitial edema with small bilateral pleural effusions. RADIA
[2018-10-22] MEDS: SENNA 8.6 MG TABLET PO SCH (16:20)
[2018-10-22] MEDS: ZINC OXIDE 20% OINT 28.35 GM TUBE TOP PRN (16:27)
[2018-10-23] MEDS: SODIUM CHLORIDE FLUSH 0.9% 10 ML SYRINGE IVP SCH ×3 (00:16→16:06)
[2018-10-23] MEDS: MEROPENEM 1 GM in SODIUM CHLORIDE 0.9% MINIBAG 100 ML IV SCH ×2 (02:42→14:23)
[2018-10-23] MEDS: PANTOPRAZOLE 40 MG TABLET PO SCH (06:00)
[2018-10-23 06:26] LABS: BASOPHILS % (AUTO) 0.1 %; LYMPHOCYTES # (AUTO) 1.7 10^3/uL (1.5-3.5); LYMPHOCYTES % (AUTO) 13.3 %; MEAN CORPUSCULAR HEMOGLOBIN 27.9 pg (27.0-31.0); MEAN CORPUSCULAR HGB CONC 32.4 g/dL (32.0-36.0); MEAN CORPUSCULAR VOLUME 85.9 fL (81.0-99.0); MEAN PLATELET VOLUME 7.6 fL (7.9-10.8); MONOCYTES # (AUTO) 0.8 10^3/uL (0.0-1.0); MONOCYTES % (AUTO) 6.4 %; NEUTROPHILS % (AUTO) 80.2 %; PLT - PLATELET COUNT 371 10^3/uL (130-450); RED CELL DISTRIBUTION WIDTH 18.9 % (12.0-15.0); WHITE BLOOD COUNT 12.5 x10^3/uL (4.8-10.8)
[2018-10-23 06:42] LABS: CREATININE 0.9 mg/dL (0.4-1.0)
[2018-10-23 06:43] LABS: CALCIUM 7.8 mg/dL (8.5-10.3)
[2018-10-23] MEDS: DOCUSATE SODIUM 250 MG CAPSULE PO SCH (07:43)
[2018-10-23] MEDS: POLYETHYLENE GLYCOL 3350 17 GM PACKET PO SCH (07:43)
[2018-10-23] MEDS: SENNA 8.6 MG TABLET PO SCH (07:43)
[2018-10-23] MEDS: OSELTAMIVIR 30 MG CAPSULE PO SCH ×2 (08:41→21:17)
[2018-10-23] MEDS: FLUCONAZOLE 100 MG TABLET PO SCH (08:42)
[2018-10-23] MEDS: guaiFENesin 600 MG TABLET PO SCH ×2 (08:42→21:17)
[2018-10-23] MEDS: SACCHAROMYCES BOULARDII 250 MG CAPSULE PO SCH ×2 (08:42→16:06)
[2018-10-23] MEDS: ACETAMINOPHEN 325 MG TABLET PO PRN (08:42)
--- NOTE | 2018-10-23 09:10 | XRAY Report ---
Reason: F/U lung abscess Procedure Date: 10/23/2018 Accession Number: [id number] / [id number] Procedure: XR - Chest 1 View X-Ray CPT Code: 74058 FULL RESULT: EXAM: CHEST RADIOGRAPHY EXAM DATE: 10/23/2018 07:33 AM. CLINICAL HISTORY: Follow up lung abscess. COMPARISON: CHEST 1 VIEW 10/22/2018 8:47 AM. TECHNIQUE: 1 view. FINDINGS: Lungs/Pleura: Redemonstration of coarse interstitial lung markings with increased patchy opacities predominantly in the right upper lung, not significantly changed. Bilateral small pleural effusions are again seen, mild interval increase in size on the right. No pneumothorax. Mediastinum: Cardiomediastinal silhouette appears similar to prior, calcification of the aortic arch. Other: None. IMPRESSION: Persistent patchy appearance of the lung as described with mild interval increase in right pleural effusion. RADIA
--- NOTE | 2018-10-23 10:37 | PROVIDER PROGRESS NOTE ---
Assessment/Plan - Problem List (1) Lung abscess Assessment/Plan: Continue iv Meropenam, at high dose to cover anaerobes, Flrastor and pulmonary toilet. (2) Pleural effusion Assessment/Plan: This is new and probably from the iv hydration that she needed due to lactic acidosis, at admission. The iv fluids were stopped yesterday. Monitor I's and O's and consider Lasix if very (+) fluid balance occurs. (3) Sophia albicans infection Assessment/Plan: Pt on Diflucan to help clear this upper airway contaminent vs pathogen. (4) Influenza A Assessment/Plan: Pt on Tamiflu, no complaints. Folloe LFTs. (5) CKD (chronic kidney disease) Assessment/Plan: Improved after 1 day of iv hydration. (6) HTN (hypertension) Assessment/Plan: Stable on her home meds (7) Anemia Assessment/Plan: Adequate B12 level, Folate result pending, and low iron stores per labs. Will start oral Iron replacement. (8) Lactic acidosis Assessment/Plan: Resolved. - Current Meds Current Meds: Current Medications Generic Name Dose Route Start Last Admin Trade Name Freq PRN Reason Stop Dose Admin Acetaminophen 650 mg 10/21/18 12:26 10/23/18 08:42 Tylenol PO 650 mg Q4HR PRN Administration Pain or Fever > 38C (100.4F) Carboxymethylcellulose 1 drops 10/21/18 13:59 10/22/18 07:36 Refresh 1% Ophth Drops EACHEYE 1 drops PRN PRN Administration Dry Eye Docusate Sodium 250 - 500 mg 10/22/18 09:00 10/23/18 07:43 Colace 250mg Capsule PO Not Given DAILY GEORGETTE Fluconazole 100 mg 10/21/18 16:00 10/23/18 08:42 Diflucan PO 100 mg DAILY GEORGETTE Administration Guaifenesin 600 mg 10/21/18 21:00 10/23/18 08:42 Mucinex PO 600 mg BID GEORGETTE Administration Meropenem 1 gm/ Sodium 100 mls @ 200 mls/hr 10/21/18 14:00 10/23/18 03:15 Chloride IV Infused Q12H GEORGETTE Infusion Multi-Ingredient Ointment 1 applic 10/21/18 13:59 10/22/18 16:27 Zinc Oxide TOP 1 applic PRN PRN Administration Skin Care Oseltamivir Phosphate 30 mg 10/22/18 02:00 10/23/18 08:41 Tamiflu PO 10/26/18 09:01 30 mg BID GEORGETTE Administration Pantoprazole Sodium 40 mg 10/22/18 07:00 10/23/18 06:00 Protonix PO 40 mg QDAC GEORGETTE Administration Polyethylene Glycol 17 gm 10/22/18 09:00 10/23/18 07:43 Miralax PO Not Given DAILY GEORGETTE Saccharomyces Boulardii 250 mg 10/21/18 18:00 10/23/18 08:42 Florastor PO 250 mg BIDWM GEORGETTE Administration Senna 8.6 - 17.2 mg 10/22/18 16:00 10/23/18 07:43 Senokot PO Not Given DAILY GEORGETTE Sodium Chloride 10 ml 10/21/18 12:26 10/21/18 14:08 Normal Saline Flush 0.9% IVP 10 ml PRN PRN Administration NEEDED PER PROVIDER ORDERS Sodium Chloride 10 ml 10/21/18 17:00 10/23/18 08:41 Normal Saline Flush 0.9% IVP 10 ml 0100,0900,1700 GEORGETTE Administration - Lab Result Fish Bone Diagrams: 10/23/18 06:13 10/23/18 06:13 - Additional Planning My Orders: My Active Orders 10/22/18 16:00 Senna [Senokot] 8.6 - 17.2 mg PO DAILY 10/24/18 05:00 FOLATE [IAI] Routine Subjective - Subjective Patient Reports: Feeling Better, Resting Comfortably Objective Vital Signs: Vital Signs - 24 hr 10/22/18 10/22/18 10/22/18 11:18 12:19 16:00 Temperature 37.1 C 37.9 C H Heart Rate [ 79 83 87 Brachial] Respiratory 20 20 Rate Blood Pressure 146/60 H 140/52 H [Left Brachial artery] O2 Saturation 92 92 87 L 10/22/18 10/22/18 10/22/18 16:30 18:00 23:30 Temperature 36.8 C 36.5 C Heart Rate [ 73 Brachial] Respiratory 16 Rate Blood Pressure 142/54 H 134/58 H [Left Brachial artery] O2 Saturation 93 93 10/23/18 08:00 Temperature 36.3 C L Heart Rate [ 78 Brachial] Respiratory 14 Rate Blood Pressure 124/58 L [Left Brachial artery] O2 Saturation 91 L Oxygen O2 Source Nasal cannula Oxygen Flow Rate 2 I&O (Last 24 Hrs): Intake and Output Totals x24h 10/21/18 10/22/18 10/23/18 23:59 23:59 23:59 Intake Total 2850 3745 350 Output Total 1200 1800 1450 Balance 1650 1945 -1100 General: Alert HEENT: Mucous membr. moist/pink Neck: Supple Neuro: Non Focal, Other (Memory poor) Cardiovascular: No murmurs Respiratory: No respiratory distress Abdomen: Soft Extremities: No edema - Results Results: Laboratory Results WBC 12.5 x10^3/uL (4.8-10.8) H 10/23/18 06:13 RBC 3.60 10^6/uL (4.20-5.40) L 10/23/18 06:13 Hgb 10.0 g/dL (12.0-16.0) L 10/23/18 06:13 Hct 30.9 % (37.0-47.0) L 10/23/18 06:13 MCV 85.9 fL (81.0-99.0) 10/23/18 06:13 MCH 27.9 pg (27.0-31.0) 10/23/18 06:13 MCHC 32.4 g/dL (32.0-36.0) 10/23/18 06:13 RDW 18.9 % (12.0-15.0) H 10/23/18 06:13 Plt Count 371 10^3/uL (130-450) 10/23/18 06:13 MPV 7.6 fL (7.9-10.8) L 10/23/18 06:13 Neut # (Auto) 10.0 10^3/uL (1.5-6.6) H 10/23/18 06:13 Lymph # (Auto) 1.7 10^3/uL (1.5-3.5) 10/23/18 06:13 [place] # (Auto) 0.8 10^3/uL (0.0-1.0) 10/23/18 06:13 Eos # (Auto) 0.0 10^3/uL (0.0-0.7) 10/23/18 06:13 Baso # (Auto) 0.0 10^3/uL (0.0-0.1) 10/23/18 06:13 Absolute Nucleated RBC 0.00 x10^3/uL 10/23/18 06:13 Nucleated RBC % 0.0 /100WBC 10/23/18 06:13 Manual Slide Review Indicated 10/21/18 09:50 Platelet Estimate NORMAL (130-450,000) (NORMAL) 10/21/18 09:50 Platelet Morphology NORMAL APPEARANCE (NORMAL) 10/21/18 09:50 RBC Morph Micro Appear NORMAL APPEARANCE (NORMAL) 10/21/18 09:50 Sodium 130 mmol/L (135-145) L 10/23/18 06:13 Potassium 3.5 mmol/L (3.5-5.0) 10/23/18 06:13 Chloride 100 mmol/L (101-111) L 10/23/18 06:13 Carbon Dioxide 22 mmol/L (21-32) 10/23/18 06:13 Anion Gap 8.0 (6-13) 10/23/18 06:13 BUN 21 mg/dL (6-20) H 10/23/18 06:13 Creatinine 0.9 mg/dL (0.4-1.0) 10/23/18 06:13 Estimated GFR (MDRD) 59 (>89) L 10/23/18 06:13 Glucose 87 mg/dL (70-100) 10/23/18 06:13 Lactic Acid 1.3 mmol/L (0.5-2.2) 10/21/18 13:10 Calcium 7.8 mg/dL (8.5-10.3) L 10/23/18 06:13 Iron 20 ug/dL (28-170) L 10/23/18 06:13 TIBC 246 ug/dL (250-450) L 10/23/18 06:13 % Saturation 8 % (20-50) L 10/23/18 06:13 Transferrin 176 mg/dL (192-382) L 10/23/18 06:13 Total Bilirubin 0.6 mg/dL (0.2-1.0) 10/21/18 09:50 AST 33 IU/L (10-42) 10/21/18 09:50 ALT 15 IU/L (10-60) 10/21/18 09:50 Alkaline Phosphatase 66 IU/L (42-121) 10/21/18 09:50 B-Natriuretic Peptide 665 pg/mL (5-100) H 10/22/18 07:05 Total Protein 7.9 g/dL (6.7-8.2) 10/21/18 09:50 Albumin 3.3 g/dL (3.2-5.5) 10/21/18 09:50 Globulin 4.6 g/dL (2.1-4.2) H 10/21/18 09:50 Albumin/Globulin Ratio 0.7 (1.0-2.2) L 10/21/18 09:50 Lipase 21 U/L (22-51) L 10/21/18 09:50 Vitamin B12 1190 pg/mL (180-914) H 10/23/18 06:13 Urine Color YELLOW 10/21/18 17:05 Urine Clarity CLEAR (CLEAR) 10/21/18 17:05 Urine pH 6.0 PH (5.0-7.5) 10/21/18 17:05 Ur Specific [place] 1.025 (1.002-1.030) 10/21/18 17:05 Urine Protein 100 mg/dL (NEGATIVE) H 10/21/18 17:05 Urine Glucose (UA) 100 mg/dL (NEGATIVE) H 10/21/18 17:05 Urine Ketones TRACE mg/dL (NEGATIVE) 10/21/18 17:05 Urine Occult Blood TRACE-INTA (NEGATIVE) 10/21/18 17:05 Urine Nitrite NEGATIVE (NEGATIVE) 10/21/18 17:05 Urine Bilirubin NEGATIVE (NEGATIVE) 10/21/18 17:05 Urine Urobilinogen 0.2 (NORMAL) E.U./dL (NORMAL) 10/21/18 17:05 Ur Leukocyte Esterase NEGATIVE (NEGATIVE) 10/21/18 17:05 Urine RBC 0-5 /HPF (0-5) 10/21/18 17:05 Urine WBC 0-3 /HPF (0-5) 10/21/18 17:05 Ur Squamous Epith Cells FEW Squamous (<= Few) 10/21/18 17:05 Urine Bacteria Few /HPF (None Seen) 10/21/18 17:05 Urine Casts 0-2 Fine Granular /LPF 10/21/18 17:05 Urine Yeast PRESENT 10/21/18 17:05 Ur Microscopic Review INDICATED 10/21/18 17:05 Urine Culture Comments NOT INDICATED 10/21/18 17:05 Influenza A (Rapid) POSITIVE (Negative) H 10/21/18 10:20 Influenza B (Rapid) Negative (Negative) 10/21/18 10:20 - Procedures Procedures: Procedures EXCISE AXILLARY NODE (05/15/13) REPLACE OF L HIP JT WITH SYNTH SUB, CEMENT, OPEN APPROACH (08/28/18) SUBTOTAL MASTECTOMY (05/15/13)
[2018-10-23 13:03] LABS: ALBUMIN 2.3 g/dL (3.2-5.5); BILIRUBIN,DIRECT 0.1 mg/dL (0.1-0.5); BILIRUBIN,TOTAL 0.6 mg/dL (0.2-1.0); TOTAL PROTEIN 5.7 g/dL (6.7-8.2)
[2018-10-23] MEDS: FERROUS GLUCONATE 324 MG TABLET PO SCH (14:23)
[2018-10-23] MEDS: ZINC OXIDE 20% OINT 28.35 GM TUBE TOP PRN (16:07)
[2018-10-24] MEDS: SODIUM CHLORIDE FLUSH 0.9% 10 ML SYRINGE IVP SCH ×3 (01:00→18:51)
[2018-10-24] MEDS: MEROPENEM 1 GM in SODIUM CHLORIDE 0.9% MINIBAG 100 ML IV SCH ×2 (01:02→13:41)
[2018-10-24 05:53] LABS: BASOPHILS % (AUTO) 0.2 %; EOSINOPHILS # (AUTO) 0.1 10^3/uL (0.0-0.7); EOSINOPHILS % (AUTO) 1.3 %; HGB - HEMOGLOBIN 10.5 g/dL (12.0-16.0); LYMPHOCYTES # (AUTO) 2.1 10^3/uL (1.5-3.5); LYMPHOCYTES % (AUTO) 26.6 %; MEAN CORPUSCULAR HEMOGLOBIN 27.9 pg (27.0-31.0); MEAN CORPUSCULAR HGB CONC 32.8 g/dL (32.0-36.0); MEAN CORPUSCULAR VOLUME 84.8 fL (81.0-99.0); MEAN PLATELET VOLUME 7.5 fL (7.9-10.8); MONOCYTES # (AUTO) 0.8 10^3/uL (0.0-1.0); MONOCYTES % (AUTO) 10.5 %; NEUTROPHILS # (AUTO) 4.9 10^3/uL (1.5-6.6); NEUTROPHILS % (AUTO) 61.4 %; PLT - PLATELET COUNT 379 10^3/uL (130-450); RED BLOOD COUNT 3.78 10^6/uL (4.20-5.40); RED CELL DISTRIBUTION WIDTH 18.2 % (12.0-15.0); WHITE BLOOD COUNT 7.9 x10^3/uL (4.8-10.8)
[2018-10-24 05:59] LABS: CALCIUM 7.9 mg/dL (8.5-10.3)
[2018-10-24] MEDS: PANTOPRAZOLE 40 MG TABLET PO SCH (06:09)
[2018-10-24 06:10] LABS: ALBUMIN 2.4 g/dL (3.2-5.5); ALBUMIN/GLOBULIN RATIO 0.7 (1.0-2.2); BILIRUBIN,TOTAL 0.2 mg/dL (0.2-1.0); CREATININE 0.9 mg/dL (0.4-1.0)
[2018-10-24] MEDS: SENNA 8.6 MG TABLET PO SCH (07:26)
[2018-10-24] MEDS ORDERED: POTASSIUM CHLORIDE 20 MEQ TABLET PO SCH (09:00)
[2018-10-24] MEDS: POLYETHYLENE GLYCOL 3350 17 GM PACKET PO SCH (09:22)
[2018-10-24] MEDS: DOCUSATE SODIUM 250 MG CAPSULE PO SCH (09:22)
[2018-10-24] MEDS ORDERED: GLYCOPYRROLATE 1 MG/5 ML VIAL IVP PRN (10:14)
[2018-10-24] MEDS: OSELTAMIVIR 30 MG CAPSULE PO SCH ×2 (10:59→22:00)
[2018-10-24] MEDS: guaiFENesin 600 MG TABLET PO SCH ×2 (10:59→22:00)
[2018-10-24] MEDS: SACCHAROMYCES BOULARDII 250 MG CAPSULE PO SCH ×2 (10:59→18:51)
[2018-10-24] MEDS: MULTIVITAMIN W/MINERALS TABLET PO SCH (10:59)
[2018-10-24] MEDS: FLUCONAZOLE 100 MG TABLET PO SCH (11:00)
[2018-10-24] MEDS: SPIRONOLACTONE 25 MG TABLET PO SCH (11:00)
[2018-10-24] MEDS: MEGESTROL 400 MG/10 ML UDC PO SCH (11:00)
[2018-10-24] MEDS: FERROUS GLUCONATE 324 MG TABLET PO SCH ×2 (11:00→18:51)
[2018-10-24] MEDS: DICLOFENAC 1% TOP SCH ×3 (11:01→19:31)
--- NOTE | 2018-10-24 13:37 | PROVIDER PROGRESS NOTE ---
Subjective - Prog Note Date Prog Note Date: 10/24/18 Prog Note Time: 13:33 - Subjective Pt reports feeling: Improved (Patient denies fevers, sob or pleuritic CP) Current Medications - Current Medications Current Medications: Active Medications Acetaminophen (Tylenol) 650 mg PO Q4HR PRN PRN Reason: Pain or Fever > 38C (100.4F) Last Admin: 10/23/18 08:42 Dose: 650 mg Alendronate Sodium (Fosamax) 70 mg PO Q7D [facility] Calcium Carbonate/Glycine ([place]-500) 500 mg PO 1200,1700 [facility] Carboxymethylcellulose (Refresh 1% Ophth Drops) 1 drops EACHEYE PRN PRN PRN Reason: Dry Eye Last Admin: 10/22/18 07:36 Dose: 1 drops Docusate Sodium (Colace 250mg Capsule) 250 - 500 mg PO DAILY [facility] Last Admin: 10/24/18 09:22 Dose: Not Given Ferrous Gluconate (Fergon) 324 mg PO DAILYWM [facility] Last Admin: 10/24/18 11:00 Dose: 324 mg Fluconazole (Diflucan) 100 mg PO DAILY [facility] Last Admin: 10/24/18 11:00 Dose: 100 mg Guaifenesin (Mucinex) 600 mg PO BID [facility] Last Admin: 10/24/18 10:59 Dose: 600 mg Meropenem 1 gm/ Sodium (Chloride) 100 mls @ 200 mls/hr IV Q12H [facility] Last Infusion: 10/24/18 01:38 Dose: Infused Megestrol Acetate (Megace) 400 mg PO DAILY [facility] Last Admin: 10/24/18 11:00 Dose: 400 mg Mirtazapine (Remeron) 15 mg PO QPM [facility] Multi-Ingredient Ointment (Zinc Oxide) 1 applic TOP PRN PRN PRN Reason: Skin Care Last Admin: 10/23/18 16:07 Dose: 1 applic Multivitamins/Minerals (Theragran M) 1 tab PO DAILYWM [facility] Last Admin: 10/24/18 10:59 Dose: 1 tab Oseltamivir Phosphate (Tamiflu) 30 mg PO BID [facility] Stop: 10/26/18 09:01 Last Admin: 10/24/18 10:59 Dose: 30 mg Pantoprazole Sodium (Protonix) 40 mg PO QDAC [facility] Last Admin: 10/24/18 06:09 Dose: 40 mg Patient Own Med ( (Diclofenac Gel 1%)) 1 each TOP QID [facility] Last Admin: 10/24/18 11:01 Dose: Not Given Polyethylene Glycol (Miralax) 17 gm PO DAILY [facility] Last Admin: 10/24/18 09:22 Dose: Not Given Prochlorperazine Edisylate (Compazine Inj) 10 mg IVP Q6HR PRN PRN Reason: Nausea / Vomiting Saccharomyces Boulardii (Florastor) 250 mg PO BIDWM [facility] Last Admin: 10/24/18 10:59 Dose: 250 mg Saliva Substitute (Biotene Moisturizing Mouth [place]) 2 sprays PO Q4H PRN PRN Reason: Mouth Sore Pain Senna (Senokot) 8.6 - 17.2 mg PO DAILY [facility] Last Admin: 10/24/18 07:26 Dose: Not Given Sodium Chloride (Normal Saline Flush 0.9%) 10 ml IVP PRN PRN PRN Reason: NEEDED PER PROVIDER ORDERS Last Admin: 10/21/18 14:08 Dose: 10 ml Sodium Chloride (Normal Saline Flush 0.9%) 10 ml IVP 0100,0900,1700 [facility] Last Admin: 10/24/18 11:01 Dose: 10 ml Spironolactone (Aldactone) 25 mg PO DAILY [facility] Last Admin: 10/24/18 11:00 Dose: 25 mg Biotin 5,000 mcg PO DAILY 05/10/13 Cholecalciferol (Vitamin D3) [Vitamin D3] 400 unit PO DAILY 05/10/13 Lactobacillus Rhamnosus GG [Probiotic] 1 each PO DAILY 05/10/13 Multivitamin [Multivitamins] 1 each PO DAILY 05/10/13 Oregano Oil [Oil of Oregano] 1,500 mg PO DAILY 05/10/13 Ubidecarenone [Coq-10] 100 mg PO DAILY 05/10/13 Vitamin B Complex [B Complex] 1 each PO DAILY 05/10/13 Vitamin E 400 unit PO DAILY 05/10/13 Acetaminophen [8Hr Arthritis Pain] 650 mg PO QID 10/21/18 Albuterol 2.5 mg INH Q4H PRN 10/21/18 Calcium Carbonate [Tums (Calcium Carbonate 500mg)] 500 mg PO Q4-6H 10/21/18 Carboxymethylcellulose Sodium [Refresh Tears] 1 drops EACHEYE PRN PRN 10/21/18 Docusate Sodium 100 mg PO DAILY 10/21/18 Melatonin 5 mg PO QPM 10/21/18 Objective - Vital Signs/Intake & Output Reviewed Vital Signs: Yes Vital Signs: Vital Signs x48h Temp Pulse Pulse Resp BP Pulse Ox 10/24/18 11:59 36.5 C 79 20 92 10/24/18 08:00 36.5 C 79 20 144/67 H 91 L Intake & Output: Intake & Output 10/21/18 10/22/18 10/23/18 10/24/18 23:59 23:59 23:59 23:59 Intake Total 2850 3745 940 420 Output Total 1200 1800 2750 1450 Balance 1650 1945 -1810 -1030 - Objective General Appearance: positive: No acute distress, Alert, Anxious Eyes Bilateral: positive: Normal inspection, PERRL, EOMI ENT: positive: ENT inspection nml, Pharynx nml, No signs of dehydration Neck: positive: Nml inspection, Thyroid nml, No JVD, Trachea midline. negative: Thyromegaly Respiratory: positive: Chest non-tender, No respiratory distress, Rhonchi. negative: Wheezes, Rales Cardiovascular: positive: Regular rate & rhythm, No murmur, No gallop Abdomen: positive: Non-tender, No organomegaly, Nml bowel sounds, No distention Skin: positive: Color nml, No rash, Warm Extremities: positive: Non-tender, Full ROM, Nml appearance Neurologic/Psychiatric: positive: Oriented x3, CN's nml (2-12) - Lab Results Fish Bones: 10/24/18 05:30 10/24/18 05:30 Other Labs: Lab Results x24hrs 10/24/18 10/24/18 10/24/18 Range/Units 05:30 05:30 05:30 WBC 7.9 (4.8-10.8) x10^3/uL RBC 3.78 L (4.20-5.40) 10^6/uL Hgb 10.5 L (12.0-16.0) g/dL Hct 32.1 L (37.0-47.0) % MCV 84.8 (81.0-99.0) fL MCH 27.9 (27.0-31.0) pg MCHC 32.8 (32.0-36.0) g/dL RDW 18.2 H (12.0-15.0) % Plt Count 379 (130-450) 10^3/uL MPV 7.5 L (7.9-10.8) fL Neut # (Auto) 4.9 (1.5-6.6) 10^3/uL Lymph # (Auto) 2.1 (1.5-3.5) 10^3/uL [place] # (Auto) 0.8 (0.0-1.0) 10^3/uL Eos # (Auto) 0.1 (0.0-0.7) 10^3/uL Baso # (Auto) 0.0 (0.0-0.1) 10^3/uL Absolute Nucleated RBC 0.01 x10^3/uL Nucleated RBC % 0.1 /100WBC Sodium 133 L (135-145) mmol/L Potassium 3.2 L (3.5-5.0) mmol/L Chloride 98 L (101-111) mmol/L Carbon Dioxide 25 (21-32) mmol/L Anion Gap 10.0 (6-13) BUN 16 (6-20) mg/dL Creatinine 0.9 (0.4-1.0) mg/dL Estimated GFR (MDRD) 59 L (>89) Glucose 90 (70-100) mg/dL Calcium 7.9 L (8.5-10.3) mg/dL Total Bilirubin 0.2 (0.2-1.0) mg/dL AST 53 H (10-42) IU/L ALT 15 (10-60) IU/L Alkaline Phosphatase 58 (42-121) IU/L Total Protein 6.0 L (6.7-8.2) g/dL Albumin 2.4 L (3.2-5.5) g/dL Globulin 3.6 (2.1-4.2) g/dL Albumin/Globulin Ratio 0.7 L (1.0-2.2) Folate 31.00 (5.90 - >24.8) ng/mL ABX Reporting Has patient been on IV antibiotics over the past 48 hours?: No Assessment/Plan - Problem List (1) Lung abscess Impression: CXR shows RUL infiltrate with worsening R>L pleural effusion. Ideally this would need percutaneus drainage and or decortication but patient not ideal candidate for procedure. Continue iv Meropenam, at high dose to cover anaerobes, aspiration PNA? ST consult for food consistency. Florastor is beieng given, continue with med mgmt and pulmonary toilet. Qualifiers: Pulmonary abscess pneumonia presence: with pneumonia Laterality: right Lung location: upper lobe of lung Qualified Code(s): J85.1 - Abscess of lung with pneumonia (2) Influenza A Impression: Pt on Tamiflu, c.o diarrhea which may be associated side effect. LFT's wnl, would continue to monitor. (3) Pleural effusion Impression: May need a CT chest to see if there is loculation/empyema around lung abscess site as this would be very difficult to treat with IV abx's alone. IVF's were stopped, BNP was elevated which makes a case for some fluid overload. Monitor I's and O's and consider Lasix if very (+) fluid balance occurs. (4) Right leg pain Impression: xray to femur as she has hx fracture to LLE in past, as well as address underlying osteoporosis if seen on xray or vit d def noted. Diclofenac 1% gel QID to the site, tolerating PT well, walked 15 ft with walker, moderate assist still. (5) Hypokalemia Impression: Give one dose of KDUR (6) Failure to thrive syndrome, adult Impression: Poor appetite, nutritional consult placed, megace and remeron started. Obtain vit d level, optimize nutrition, oral supplementation with boost/ensure. (7) Cachexia Impression: Secondary to poor oral intake and chronic malnourished state. Would optimize medical and nutritional mgmt for now. (8) Protein-calorie malnutrition, moderate Impression: Chronic moderate protein/calorie def malnutrition which was present on admission. Nutritional consult, supplememntatijn, optimize nutritional intake. Would add appetite stimulation to improve caloric intake. (9) Osteoporosis Impression: Osteoporosis consult done. Secondary to vit d def likely and poor calcium absorption, would obtain levels and treat with bisphosphonate as well as Vit D and Calcium supplementation. Qualifiers: Osteoporosis type: unspecified Presence of current pathological fracture: unspecified Qualified Code(s): M81.0 - Age-related osteoporosis without current pathological fracture (10) Hypoxemia Impression: This was POA. Still requiring oxygen supplementation and may need to be qualified for home o2 tx if needed. (11) Anemia Impression: secondary to nutritional def, Continue with iron sulfate, Adequate B12 level, Folate result WNL, and low iron stores per labs. Qualifiers: Anemia type: iron deficiency Iron deficiency anemia type: inadequate dietary iron intake Qualified Code(s): D50.8 - Other iron deficiency anemias
[2018-10-24] MEDS ORDERED: ALENDRONATE 70 MG TABLET PO SCH (14:00)
[2018-10-24] MEDS ORDERED: LOPERAMIDE 2 MG CAPSULE PO PRN (14:02)
--- NOTE | 2018-10-24 15:04 | XRAY Report ---
Reason: right leg pain evaluate for fracture Procedure Date: 10/24/2018 Accession Number: [id number] / [id number] Procedure: XR - Femur 2V RT CPT Code: FULL RESULT: EXAM: RIGHT FEMUR RADIOGRAPHY EXAM DATE: 10/24/2018 12:35 PM. CLINICAL HISTORY: Right leg pain evaluate for fracture. COMPARISON: None. TECHNIQUE: 4 views. FINDINGS: Mild degenerative changes are noted involving the right hip and right knee. No displaced fracture is identified. IMPRESSION: No evidence of a displaced fracture. 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 RADIA
[2018-10-24] MEDS: CALCIUM CARB (OYSTER SHELL) 500 MG TABLET PO SCH (18:51)
[2018-10-24] MEDS: MIRTAZAPINE 15 MG TABLET PO SCH (22:00)
[2018-10-24] MEDS: ZINC OXIDE 20% OINT 28.35 GM TUBE TOP PRN (22:00)
[2018-10-25] MEDS: SODIUM CHLORIDE FLUSH 0.9% 10 ML SYRINGE IVP SCH ×3 (00:51→18:05)
[2018-10-25] MEDS: MEROPENEM 1 GM in SODIUM CHLORIDE 0.9% MINIBAG 100 ML IV SCH ×2 (01:52→14:18)
[2018-10-25] MEDS: PANTOPRAZOLE 40 MG TABLET PO SCH (05:57)
[2018-10-25 06:15] LABS: BASOPHILS % (AUTO) 0.2 %; EOSINOPHILS # (AUTO) 0.3 10^3/uL (0.0-0.7); EOSINOPHILS % (AUTO) 2.4 %; HGB - HEMOGLOBIN 11.5 g/dL (12.0-16.0); LYMPHOCYTES # (AUTO) 2.9 10^3/uL (1.5-3.5); LYMPHOCYTES % (AUTO) 25.9 %; MEAN CORPUSCULAR HEMOGLOBIN 27.5 pg (27.0-31.0); MEAN CORPUSCULAR HGB CONC 32.6 g/dL (32.0-36.0); MEAN CORPUSCULAR VOLUME 84.2 fL (81.0-99.0); MEAN PLATELET VOLUME 7.1 fL (7.9-10.8); MONOCYTES # (AUTO) 1.3 10^3/uL (0.0-1.0); MONOCYTES % (AUTO) 11.5 %; NEUTROPHILS # (AUTO) 6.7 10^3/uL (1.5-6.6); PLT - PLATELET COUNT 414 10^3/uL (130-450); RED BLOOD COUNT 4.17 10^6/uL (4.20-5.40); RED CELL DISTRIBUTION WIDTH 18.3 % (12.0-15.0); WHITE BLOOD COUNT 11.1 x10^3/uL (4.8-10.8)
[2018-10-25 06:23] LABS: ALBUMIN 2.7 g/dL (3.2-5.5); ALBUMIN/GLOBULIN RATIO 0.7 (1.0-2.2); BILIRUBIN,TOTAL 0.2 mg/dL (0.2-1.0); CALCIUM 8.7 mg/dL (8.5-10.3); CREATININE 0.8 mg/dL (0.4-1.0); TOTAL PROTEIN 6.5 g/dL (6.7-8.2)
[2018-10-25] MEDS: SPIRONOLACTONE 25 MG TABLET PO SCH (09:23)
[2018-10-25] MEDS: FERROUS GLUCONATE 324 MG TABLET PO SCH ×2 (09:23→18:04)
[2018-10-25] MEDS: OSELTAMIVIR 30 MG CAPSULE PO SCH ×2 (09:23→22:32)
[2018-10-25] MEDS: MULTIVITAMIN W/MINERALS TABLET PO SCH (09:23)
[2018-10-25] MEDS: LACTOBACILLUS RHAMNOSUS GG CAPSULE PO SCH (09:23)
[2018-10-25] MEDS: SACCHAROMYCES BOULARDII 250 MG CAPSULE PO SCH ×2 (09:23→18:04)
[2018-10-25] MEDS: guaiFENesin 600 MG TABLET PO SCH ×2 (09:23→22:32)
[2018-10-25] MEDS: MEGESTROL 400 MG/10 ML UDC PO SCH (09:24)
[2018-10-25] MEDS: DOCUSATE SODIUM 250 MG CAPSULE PO SCH (09:29)
[2018-10-25] MEDS: POLYETHYLENE GLYCOL 3350 17 GM PACKET PO SCH (09:29)
[2018-10-25] MEDS: SENNA 8.6 MG TABLET PO SCH (09:30)
[2018-10-25] MEDS: DICLOFENAC 1% TOP SCH ×4 (09:31→20:58)
[2018-10-25] MEDS ORDERED: POLYETHYLENE GLYCOL 3350 17 GM PACKET PO PRN (13:01)
[2018-10-25] MEDS: CALCIUM CARB (OYSTER SHELL) 500 MG TABLET PO SCH ×2 (14:18→18:04)
--- NOTE | 2018-10-25 14:21 | PROVIDER PROGRESS NOTE ---
Subjective - Prog Note Date Prog Note Date: 10/25/18 Prog Note Time: 14:19 - Subjective Pt reports feeling: Improved (Patient has improved shortness of breath. Lucid intervals and confused status.) Current Medications - Current Medications Current Medications: Active Medications Acetaminophen (Tylenol) 650 mg PO Q4HR PRN PRN Reason: Pain or Fever > 38C (100.4F) Last Admin: 10/23/18 08:42 Dose: 650 mg Alendronate Sodium (Fosamax) 70 mg PO Q7D [facility] Last Admin: 10/24/18 13:36 Dose: 70 mg Calcium Carbonate/Glycine (Oysco-500) 500 mg PO 1200,1700 [facility] Last Admin: 10/25/18 14:18 Dose: 500 mg Carboxymethylcellulose (Refresh 1% Ophth Drops) 1 drops EACHEYE PRN PRN PRN Reason: Dry Eye Last Admin: 10/22/18 07:36 Dose: 1 drops Ferrous Gluconate (Fergon) 324 mg PO BIDWM [facility] Last Admin: 10/25/18 09:23 Dose: 324 mg Guaifenesin (Mucinex) 600 mg PO BID [facility] Last Admin: 10/25/18 09:23 Dose: 600 mg Meropenem 1 gm/ Sodium (Chloride) 100 mls @ 200 mls/hr IV Q12H [facility] Last Admin: 10/25/18 14:18 Dose: 200 mls/hr Lactobacillus Rhamnosus (Culturelle) 1 cap PO DAILY [facility] Last Admin: 10/25/18 09:23 Dose: 1 cap Loperamide HCl (Imodium) 2 mg PO QID PRN PRN Reason: Diarrhea Megestrol Acetate (Megace) 400 mg PO DAILY [facility] Last Admin: 10/25/18 09:24 Dose: 400 mg Mirtazapine (Remeron) 15 mg PO QPM [facility] Last Admin: 10/24/18 22:00 Dose: 15 mg Multi-Ingredient Ointment (Zinc Oxide) 1 applic TOP PRN PRN PRN Reason: Skin Care Last Admin: 10/24/18 22:00 Dose: 1 applic Multivitamins/Minerals (Theragran M) 1 tab PO DAILYWM [facility] Last Admin: 10/25/18 09:23 Dose: 1 tab Oseltamivir Phosphate (Tamiflu) 30 mg PO BID [facility] Stop: 10/26/18 09:01 Last Admin: 10/25/18 09:23 Dose: 30 mg Pantoprazole Sodium (Protonix) 40 mg PO QDAC [facility] Last Admin: 10/25/18 05:57 Dose: 40 mg Patient Own Med ( (Diclofenac Gel 1%)) 1 each TOP QID [facility] Last Admin: 10/25/18 14:19 Dose: Not Given Polyethylene Glycol (Miralax) 17 gm PO DAILY PRN PRN Reason: Constipation Prochlorperazine Edisylate (Compazine Inj) 10 mg IVP Q6HR PRN PRN Reason: Nausea / Vomiting Saccharomyces Boulardii (Florastor) 250 mg PO BIDWM [facility] Last Admin: 10/25/18 09:23 Dose: 250 mg Saliva Substitute (Biotene Moisturizing Mouth [place]) 2 sprays PO Q4H PRN PRN Reason: Mouth Sore Pain Sodium Chloride (Normal Saline Flush 0.9%) 10 ml IVP PRN PRN PRN Reason: NEEDED PER PROVIDER ORDERS Last Admin: 10/21/18 14:08 Dose: 10 ml Sodium Chloride (Normal Saline Flush 0.9%) 10 ml IVP 0100,0900,1700 [facility] Last Admin: 10/25/18 09:30 Dose: 10 ml Spironolactone (Aldactone) 25 mg PO DAILY [facility] Last Admin: 10/25/18 09:23 Dose: 25 mg Biotin 5,000 mcg PO DAILY 05/10/13 Cholecalciferol (Vitamin D3) [Vitamin D3] 400 unit PO DAILY 05/10/13 Lactobacillus Rhamnosus GG [Probiotic] 1 each PO DAILY 05/10/13 Multivitamin [Multivitamins] 1 each PO DAILY 05/10/13 Oregano Oil [Oil of Oregano] 1,500 mg PO DAILY 05/10/13 Ubidecarenone [Coq-10] 100 mg PO DAILY 05/10/13 Vitamin B Complex [B Complex] 1 each PO DAILY 05/10/13 Vitamin E 400 unit PO DAILY 05/10/13 Acetaminophen [8Hr Arthritis Pain] 650 mg PO QID 10/21/18 Albuterol 2.5 mg INH Q4H PRN 10/21/18 Calcium Carbonate [Tums (Calcium Carbonate 500mg)] 500 mg PO Q4-6H 10/21/18 Carboxymethylcellulose Sodium [Refresh Tears] 1 drops EACHEYE PRN PRN 10/21/18 Docusate Sodium 100 mg PO DAILY 10/21/18 Melatonin 5 mg PO QPM 10/21/18 Objective - Vital Signs/Intake & Output Reviewed Vital Signs: Yes Vital Signs: Vital Signs x48h Temp Pulse Pulse Resp BP BP Pulse Ox 10/25/18 11:23 78 124/58 L 10/25/18 08:00 36.3 C L 82 30 H 123/59 L 95 Pulse Ox 10/25/18 11:23 94 10/25/18 08:00 Intake & Output: Intake & Output 10/22/18 10/23/18 10/24/18 10/25/18 23:59 23:59 23:59 23:59 Intake Total 3745 940 1120 330 Output Total 1800 2750 2850 1600 Balance 1945 -1810 -1730 -1270 - Objective General Appearance: positive: No acute distress, Alert (There is some confusion unclear of baseline), Other (Chronically ill-appearing, thin and cachectic) Eyes Bilateral: positive: Normal inspection, PERRL, EOMI, Conjunctivae nml ENT: positive: Pharynx nml, No signs of dehydration Neck: positive: Nml inspection, Thyroid nml, No JVD, Trachea midline. negative: Thyromegaly Respiratory: positive: Chest non-tender, No respiratory distress, Rhonchi. negative: Wheezes, Rales Cardiovascular: positive: Regular rate & rhythm, Systolic murmur, Diastolic murmur. negative: JVD present Peripheral Pulses: 2+ Radial (R), 2+ Radial (L), 2+ Dorsalis pedis (R), 2+ Dorsalis pedis (L) Abdomen: positive: Non-tender, No organomegaly, Nml bowel sounds, No distention. negative: Tenderness Skin: positive: No rash, Warm, Dry, Pallor. negative: Diaphoresis Extremities: positive: Non-tender, Full ROM, Other (Muscle wasting to the peripheral and distal muscles, bitemporal muscle wasting seen as well as inte rcostal muscles). negative: No pedal edema, Calf tenderness, Joint swelling, Kim's sign/cords Neurologic/Psychiatric: positive: Disoriented to person, Disoriented to time, Weakness - Lab Results Fish Bones: 10/25/18 06:00 10/25/18 06:00 Other Labs: Lab Results x24hrs 10/25/18 10/25/18 Range/Units 06:00 06:00 WBC 11.1 H (4.8-10.8) x10^3/uL RBC 4.17 L (4.20-5.40) 10^6/uL Hgb 11.5 L (12.0-16.0) g/dL Hct 35.1 L (37.0-47.0) % MCV 84.2 (81.0-99.0) fL MCH 27.5 (27.0-31.0) pg MCHC 32.6 (32.0-36.0) g/dL RDW 18.3 H (12.0-15.0) % Plt Count 414 (130-450) 10^3/uL MPV 7.1 L (7.9-10.8) fL Neut # (Auto) 6.7 H (1.5-6.6) 10^3/uL Lymph # (Auto) 2.9 (1.5-3.5) 10^3/uL Piute # (Auto) 1.3 H (0.0-1.0) 10^3/uL Eos # (Auto) 0.3 (0.0-0.7) 10^3/uL Baso # (Auto) 0.0 (0.0-0.1) 10^3/uL Absolute Nucleated RBC 0.01 x10^3/uL Nucleated RBC % 0.1 /100WBC Sodium 133 L (135-145) mmol/L Potassium 4.0 (3.5-5.0) mmol/L Chloride 98 L (101-111) mmol/L Carbon Dioxide 26 (21-32) mmol/L Anion Gap 9.0 (6-13) BUN 15 (6-20) mg/dL Creatinine 0.8 (0.4-1.0) mg/dL Estimated GFR (MDRD) 68 L (>89) Glucose 112 H (70-100) mg/dL Calcium 8.7 (8.5-10.3) mg/dL Total Bilirubin 0.2 (0.2-1.0) mg/dL AST 48 H (10-42) IU/L ALT 17 (10-60) IU/L Alkaline Phosphatase 66 (42-121) IU/L Total Protein 6.5 L (6.7-8.2) g/dL Albumin 2.7 L (3.2-5.5) g/dL Globulin 3.8 (2.1-4.2) g/dL Albumin/Globulin Ratio 0.7 L (1.0-2.2) ABX Reporting Has patient been on IV antibiotics over the past 48 hours?: Yes Assessment/Plan - Problem List (1) Lung abscess Impression: Patient will have assessment on IV antibiotics to be continued over at [facility], PICC line will likely need to be inserted if patient were to run cefepime/Flagyl and this gets approved for a total of 6 weeks of IV antibiotics. Qualifiers: Pulmonary abscess pneumonia presence: with pneumonia Laterality: right Lung location: upper lobe of lung Qualified Code(s): J85.1 - Abscess of lung with pneumonia (2) Influenza A Impression: Patient on day 4 of Tamiflu to continue with 1 more day. (3) Pleural effusion Impression: Patient currently on Aldactone to minimize pleural effusion while at the same time sparing patient's potassium which has improved. (4) Right leg pain Impression: Patient's right leg pain has improved and patient is ambulating approximately 15 feet with physical therapy moderate assist is noted. (5) Failure to thrive syndrome, adult Impression: We will attempt to optimize medical management as well as nutritional intake. Currently on Megace and low-dose Remeron. (6) Cachexia Impression: Dietitian consultation placed for patient's poor nutritional intake as it relates to patient's medical condition. Optimize medical and nutritional management. On low-dose Remeron as well as Megace. (7) Protein-calorie malnutrition, moderate Impression: Moderate to severe protein and calorie deficiency malnutrition with a BMI 15.7 kg/m, patient with poor nutritional intake and on low-dose Remeron and Megace to optimize medical and nutritional management. Dietitian will be consulted for this. (8) Stage II pressure ulcer of sacral region Impression: Likely as a result of poor nutritional intake and direct pressure over bony protuberance and coccyx. Mepilex to bony protuberance along with frequent turning and offloading to be followed by nursing care. Dennison catheter has been placed prophylactically to avoid further cross contamination. Diarrhea minimized as bowel care protocol has been changed to as needed. (9) Hypoxemia Impression: Patient's oxygen requirement currently at 2 L nasal cannula likely will be continued at [facility] (10) Anemia Impression: Continue with ferrous sulfate Qualifiers: Anemia type: iron deficiency Iron deficiency anemia type: inadequate dietary iron intake Qualified Code(s): D50.8 - Other iron deficiency anemias
[2018-10-25] MEDS: ZINC OXIDE 20% OINT 28.35 GM TUBE TOP PRN (18:05)
[2018-10-25] MEDS: ACETAMINOPHEN 325 MG TABLET PO PRN (18:09)
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
[2018-10-25] MEDS: MIRTAZAPINE 15 MG TABLET PO SCH (22:32)
[2018-10-26] MEDS: SODIUM CHLORIDE FLUSH 0.9% 10 ML SYRINGE IVP SCH ×3 (02:22→17:55)
[2018-10-26] MEDS: MEROPENEM 1 GM in SODIUM CHLORIDE 0.9% MINIBAG 100 ML IV SCH (02:22)
[2018-10-26 06:21] LABS: BASOPHILS % (AUTO) 0.4 %; EOSINOPHILS # (AUTO) 0.1 10^3/uL (0.0-0.7); EOSINOPHILS % (AUTO) 1.1 %; HGB - HEMOGLOBIN 11.6 g/dL (12.0-16.0); LYMPHOCYTES # (AUTO) 2.2 10^3/uL (1.5-3.5); LYMPHOCYTES % (AUTO) 19.8 %; MEAN CORPUSCULAR HEMOGLOBIN 29.1 pg (27.0-31.0); MEAN CORPUSCULAR HGB CONC 34.6 g/dL (32.0-36.0); MEAN PLATELET VOLUME 7.2 fL (7.9-10.8); MONOCYTES # (AUTO) 1.5 10^3/uL (0.0-1.0); MONOCYTES % (AUTO) 13.8 %; NEUTROPHILS # (AUTO) 7.2 10^3/uL (1.5-6.6); NEUTROPHILS % (AUTO) 64.9 %; PLT - PLATELET COUNT 397 10^3/uL (130-450); RED BLOOD COUNT 3.98 10^6/uL (4.20-5.40); RED CELL DISTRIBUTION WIDTH 17.8 % (12.0-15.0)
[2018-10-26] MEDS: PANTOPRAZOLE 40 MG TABLET PO SCH (06:34)
[2018-10-26 06:44] LABS: ALBUMIN 2.8 g/dL (3.2-5.5); CALCIUM 8.9 mg/dL (8.5-10.3); CREATININE 0.8 mg/dL (0.4-1.0); PHOSPHORUS 2.4 mg/dL (2.5-4.6)
[2018-10-26] MEDS: MULTIVITAMIN W/MINERALS TABLET PO SCH (08:49)
[2018-10-26] MEDS: FERROUS GLUCONATE 324 MG TABLET PO SCH ×2 (08:49→17:52)
[2018-10-26] MEDS: SACCHAROMYCES BOULARDII 250 MG CAPSULE PO SCH ×2 (08:50→17:55)
[2018-10-26] MEDS: guaiFENesin 600 MG TABLET PO SCH ×2 (08:50→21:27)
[2018-10-26] MEDS: DICLOFENAC 1% TOP SCH ×4 (08:50→21:27)
[2018-10-26] MEDS: MEGESTROL 400 MG/10 ML UDC PO SCH (08:50)
[2018-10-26] MEDS: LACTOBACILLUS RHAMNOSUS GG CAPSULE PO SCH (08:50)
[2018-10-26] MEDS: OSELTAMIVIR 30 MG CAPSULE PO SCH (08:50)
[2018-10-26] MEDS: SPIRONOLACTONE 25 MG TABLET PO SCH (08:50)
[2018-10-26] MEDS: SALIVA STIMULANT SPRAY 44.3 ML BOTTLE PO PRN (08:51)
--- NOTE | 2018-10-26 12:25 | CONSULTATION NOTE ---
Palliative Care Follow Up - Referral Referring Provider: Bc Stevens Time of Visit: 10:45-11:15 Referral setting: Hospitalized patient Referral Reason: Failure to Thrive/Goals of Care - Information Sources Records reviewed: Previous records reviewed History/Review of Systems obtained from: Patient, Caregiver (clinical staff) Exam limitations: Clinical condition (patient feeling weak; STM issues but clear and engaged) - History of Present Illness Update Brief HPI Update: See 10/25 consultation. Update: this is a janiya 88-year-old woman who is preparing for transition back to [facility]. She is much weaker today, hospitalist adjusting medications, complaining of significantly dry mouth, on evaluation patient does have oral candidiasis. In follow-up medical record patient never received Diflucan, follow-up with hospitalist, regarding findings. Patient is looking forward to resuming her focus, which is to regain strength, and prepare for transition home. She does understand she is quite frail, is concerned about further decline, but is willing to participate in the context of steps that are not too aggressive to continue treatment. She does perceive her support at [facility], as positive and is aware her condition is precarious. Social History - Living Situation Living arrangement: group home Support System: Patient has been at [facility] since August post hip fracture, she has been working with the team there to transition home. 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 In the context of this, if she is too frail and fragile and needs an extended stay beyond her Medicare days she has her DSHS application completed. Medications/Allergies - Medications Active Medication List: Active Medications Acetaminophen (Tylenol) 650 mg PO Q4HR PRN PRN Reason: Pain or Fever > 38C (100.4F) Last Admin: 10/25/18 18:09 Dose: 650 mg Alendronate Sodium (Fosamax) 70 mg PO Q7D [facility] Last Admin: 10/24/18 13:36 Dose: 70 mg Calcium Carbonate/Glycine (Oysco-500) 500 mg PO 1200,1700 [facility] Last Admin: 10/25/18 18:04 Dose: 500 mg Carboxymethylcellulose (Refresh 1% Ophth Drops) 1 drops EACHEYE PRN PRN PRN Reason: Dry Eye Last Admin: 10/22/18 07:36 Dose: 1 drops Ferrous Gluconate (Fergon) 324 mg PO BIDWM [facility] Last Admin: 10/26/18 08:49 Dose: 324 mg Guaifenesin (Mucinex) 600 mg PO BID [facility] Last Admin: 10/26/18 08:50 Dose: 600 mg Cefepime HCl 2 gm/ Sodium (Chloride) 100 mls @ 200 mls/hr IV DAILY [facility] Metronidazole (Flagyl 500 Mg/100 Ml) 500 mg in 100 mls @ 100 mls/hr IV Q8HR [facility] Lactobacillus Rhamnosus (Culturelle) 1 cap PO DAILY [facility] Last Admin: 10/26/18 08:50 Dose: 1 cap Loperamide HCl (Imodium) 2 mg PO QID PRN PRN Reason: Diarrhea Megestrol Acetate (Megace) 400 mg PO DAILY [facility] Last Admin: 10/26/18 08:50 Dose: 400 mg Mirtazapine (Remeron) 7.5 mg PO QPM [facility] Multi-Ingredient Ointment (Zinc Oxide) 1 applic TOP PRN PRN PRN Reason: Skin Care Last Admin: 10/25/18 18:05 Dose: 1 applic Multivitamins/Minerals (Theragran M) 1 tab PO DAILYWM [facility] Last Admin: 10/26/18 08:49 Dose: 1 tab Nystatin (Mycostatin) 10 ml PO QID [facility] Pantoprazole Sodium (Protonix) 40 mg PO QDAC [facility] Last Admin: 10/26/18 06:34 Dose: Not Given Patient Own Med ( (Diclofenac Gel 1%)) 1 each TOP QID [facility] Last Admin: 10/26/18 08:50 Dose: Not Given Polyethylene Glycol (Miralax) 17 gm PO DAILY PRN PRN Reason: Constipation Prochlorperazine Edisylate (Compazine Inj) 10 mg IVP Q6HR PRN PRN Reason: Nausea / Vomiting Saccharomyces Boulardii (Florastor) 250 mg PO BIDWM [facility] Last Admin: 10/26/18 08:50 Dose: 250 mg Saliva Substitute (Biotene Moisturizing Mouth Belva) 2 sprays PO Q4H PRN PRN Reason: Mouth Sore Pain Last Admin: 10/26/18 08:51 Dose: 2 sprays Sodium Chloride (Normal Saline Flush 0.9%) 10 ml IVP PRN PRN PRN Reason: NEEDED PER PROVIDER ORDERS Last Admin: 10/21/18 14:08 Dose: 10 ml Sodium Chloride (Normal Saline Flush 0.9%) 10 ml IVP 0100,0900,1700 [facility] Last Admin: 10/26/18 08:51 Dose: 10 ml Spironolactone (Aldactone) 12.5 mg PO DAILY [facility] Last Admin: 10/26/18 08:50 Dose: 12.5 mg Biotin 5,000 mcg PO DAILY 05/10/13 Cholecalciferol (Vitamin D3) [Vitamin D3] 400 unit PO DAILY 05/10/13 Lactobacillus Rhamnosus GG [Probiotic] 1 each PO DAILY 05/10/13 Multivitamin [Multivitamins] 1 each PO DAILY 05/10/13 Oregano Oil [Oil of Oregano] 1,500 mg PO DAILY 05/10/13 Ubidecarenone [Coq-10] 100 mg PO DAILY 05/10/13 Vitamin B Complex [B Complex] 1 each PO DAILY 05/10/13 Vitamin E 400 unit PO DAILY 05/10/13 Acetaminophen [8Hr Arthritis Pain] 650 mg PO QID 10/21/18 Albuterol 2.5 mg INH Q4H PRN 10/21/18 Calcium Carbonate [Tums (Calcium Carbonate 500mg)] 500 mg PO Q4-6H 10/21/18 Carboxymethylcellulose Sodium [Refresh Tears] 1 drops EACHEYE PRN PRN 10/21/18 Docusate Sodium 100 mg PO DAILY 10/21/18 Melatonin 5 mg PO QPM 10/21/18 - Allergies Allergies/Adverse Reactions: Allergies Allergy/AdvReac Type Severity Reaction Status Date / Time nitrofurantoin Allergy Rash Verified 10/21/18 09:29 macrocrystalline * [From Macrodantin] Review of Systems - Constitutional Constitutional: reports: Fatigue, Poor appetite, Weight loss - Eyes Eyes: reports: Vision loss, Corrective lenses - Ears, Nose & Throat Ears, Nose & Throat: reports: Hearing loss, Dry mouth, Other (reports pain and discomfort with severity high; tastes changes and discourages intake) - Respiratory Respiratory: reports: Cough, SOB with exertion. denies: SOB at rest - Gastrointestinal Gastrointestinal: reports: Poor appetite, Early satiety, Other (uncomfortable to eat). denies: Constipation, Diarrhea - Genitourinary Genitourinary: reports: Other (has mckeon catheter; has made it easier for her given her functional decline;) - Musculoskeletal Musculoskeletal: reports: Stiffness, Limited range of motion, Muscle weakness, Assistive devices (was independent with walker prior to hospitalization) - Integumentary Integumentary: reports: Dryness, Other (nurse reports Stage II decub on coccyx) - Neurological Neurological: reports: General weakness, Memory problems (mild) - Psychiatric Psychiatric: reports: Depression - Endocrine Endocrine: reports: Intolerance to cold - Hematologic/Lymphatic Hematologic/Lymphatic: reports: Recurrent infections (recent flu/pneumonia) - All Other Systems All Other Systems: reports: Other (lilmited ROS) Physical Exam - Vital Signs Vital Signs: Vital Signs x48h Temp Pulse Resp BP Pulse Ox 10/26/18 07:50 36.5 C 83 18 123/54 L 97 - Physical Exam General Appearance: positive: Mild distress, Lethargic Eyes Bilateral: positive: Normal inspection ENT: positive: Pharyngeal erythema, Other (tongue fissured and bright red; does have scattered white patches on tongue and bucally) Neck: positive: No JVD, Trachea midline Cardiovascular: positive: Regular rate & rhythm Respiratory: positive: Diminished in bases, Rhonchi (coarse rhonchi upper airways; clear somewhat with cough effort) Skin: positive: Pallor, Dryness Extremities: positive: No pedal edema Neurologic/Psychiatric: positive: Mood/affect nml, Disoriented to time, Weak ness, Flat affect Palliative Care - POLST Patient has POLST: Yes POLST Status: DNR, Selective Treatment Pain: No pain Tiredness/Fatigue: Severe (7-10) Drowsiness/Sedation: Severe (7-10) Nausea: None Depression: Mild (1-3) Anxiety: Mild (1-3) Dyspnea: Mild (1-3), Comment (patient does not perceive significant respiratory effort though noted on observation) Anorexia: Severe (7-10) Constipation: No Feelings of wellbeing/Perceived Quality of Life: Fair, Acceptable, Worsening - Palliative Care Discussion: Patient admits to being somewhat skeptical about her ability to return home, but still wants to leave that is at goal. She is hopeful to regain some of her strength, improve her intake, and feel better overall to be able to participate in rehab on a return to [facility]. She does understand she will be on extended antibiotics, she does feel like this is an acceptable intervention at this point in time. She does perceive herself as frail, but is hopeful to see her home and cats one last time. Results - Lab Results Lab results reviewed: Yes Fish Bones: 10/26/18 06:07 10/26/18 06:07 Lab and Imaging Results: Lab Results x24hrs 10/26/18 10/26/18 10/26/18 Range/Units 08:23 08:23 06:07 WBC (4.8-10.8) x10^3/uL RBC (4.20-5.40) 10^6/uL Hgb (12.0-16.0) g/dL Hct (37.0-47.0) % MCV (81.0-99.0) fL MCH (27.0-31.0) pg MCHC (32.0-36.0) g/dL RDW (12.0-15.0) % Plt Count (130-450) 10^3/uL MPV (7.9-10.8) fL Neut # (Auto) (1.5-6.6) 10^3/uL Lymph # (Auto) (1.5-3.5) 10^3/uL [place] # (Auto) (0.0-1.0) 10^3/uL Eos # (Auto) (0.0-0.7) 10^3/uL Baso # (Auto) (0.0-0.1) 10^3/uL Absolute Nucleated RBC x10^3/uL Nucleated RBC % /100WBC Sodium 132 L (135-145) mmol/L Potassium 4.4 (3.5-5.0) mmol/L Chloride 97 L (101-111) mmol/L Carbon Dioxide 25 (21-32) mmol/L Anion Gap 10.0 (6-13) BUN 16 (6-20) mg/dL Creatinine 0.8 (0.4-1.0) mg/dL Estimated GFR (MDRD) 68 L (>89) Glucose 108 H (70-100) mg/dL Calcium 8.9 (8.5-10.3) mg/dL Phosphorus 2.4 L (2.5-4.6) mg/dL Magnesium 2.0 (1.7-2.8) mg/dL B-Natriuretic Peptide 109 H (5-100) pg/mL Albumin 2.8 L (3.2-5.5) g/dL 10/26/18 Range/Units 06:07 WBC 11.0 H (4.8-10.8) x10^3/uL RBC 3.98 L (4.20-5.40) 10^6/uL Hgb 11.6 L (12.0-16.0) g/dL Hct 33.4 L (37.0-47.0) % MCV 84.0 (81.0-99.0) fL MCH 29.1 (27.0-31.0) pg MCHC 34.6 (32.0-36.0) g/dL RDW 17.8 H (12.0-15.0) % Plt Count 397 (130-450) 10^3/uL MPV 7.2 L (7.9-10.8) fL Neut # (Auto) 7.2 H (1.5-6.6) 10^3/uL Lymph # (Auto) 2.2 (1.5-3.5) 10^3/uL [place] # (Auto) 1.5 H (0.0-1.0) 10^3/uL Eos # (Auto) 0.1 (0.0-0.7) 10^3/uL Baso # (Auto) 0.0 (0.0-0.1) 10^3/uL Absolute Nucleated RBC 0.00 x10^3/uL Nucleated RBC % 0.0 /100WBC Sodium (135-145) mmol/L Potassium (3.5-5.0) mmol/L Chloride (101-111) mmol/L Carbon Dioxide (21-32) mmol/L Anion Gap (6-13) BUN (6-20) mg/dL Creatinine (0.4-1.0) mg/dL Estimated GFR (MDRD) (>89) Glucose (70-100) mg/dL Calcium (8.5-10.3) mg/dL Phosphorus (2.5-4.6) mg/dL Magnesium (1.7-2.8) mg/dL B-Natriuretic Peptide (5-100) pg/mL Albumin (3.2-5.5) g/dL Impression and Recommendations - Palliative Care Impression: This is an 88-year-old woman with mild cognitive deficits, who is presented acutely with influenza A completing her current treatment, and now with lung abscess requiring extended antibiotic treatment and PICC placement. She remains quite fragile, her goal is to return to the long-term to complete rehab, and her long-term goals transition home with support of the [facility] program. Given the fragility of her situation, has agreed for palliative care and ongoing support, concern about progress versus decline and will continue to address goals of care. Recommendations/Counseling Done: 1. Oral Candidiasis. Suspect sputum aspirate with parish confirms has had at baseline. Follow up with hospitalist for order antifungal. This is most likely adding to her diminished intake, and discomfort with eating. Does have Biotene also for dryness. 2. Stage III decub on coccyx. Mckeon catheter will be continued to support healing, would recommend on transition to carriage, pressure relief mattress/APAP given patient's cachexia and poor nutritional status. 3. Frailty. Patient does present with significant symptom burden, of anorexia, fatigue, depression, and anxiety. She also has ongoing cachexia, progressive weight loss, poor intake, has been acutely hospitalized for both flu and pneumonia. Patient's underlying health was declining both functionally and cognitive prior to hospitalization in August. Patient also presents with recent hip fracture. She remains at high risk for progressive decline, patient does have some insight into this. Her goals while focused on improvement and rehab are juxtaposed and focusing on quality of life and not extending suffering unnecessarily. She does report she has been in touch with her son, declined again for follow-up or update. 4. Advanced care planning. Patient does have a LUNA ST in place, she does have documented D POA of her son Ramo Li [phone]. Patient will be followed by palliative care given the facility of her status will continue to provide support until for symptom management, transition planning and support, and transition to hospice when appropriate.
[2018-10-26] MEDS ORDERED: SODIUM CHLORIDE 0.9% 500 ML IV PRN (12:41)
[2018-10-26] MEDS: metroNIDAZOLE 500 MG/100 ML 500 MG/100 ML BAG IV SCH ×2 (13:19→21:34)
[2018-10-26] MEDS: CALCIUM CARB (OYSTER SHELL) 500 MG TABLET PO SCH ×2 (13:34→17:52)
[2018-10-26] MEDS: NYSTATIN 500000 UNITS/5 ML UDC PO SCH ×3 (13:34→21:27)
[2018-10-26] MEDS: CEFEPIME 2 GM in SODIUM CHLORIDE 0.9% MINIBAG 100 ML IV SCH (14:28)
--- NOTE | 2018-10-26 14:46 | Discharge Plan ---
"Discharge Plan for SNF / PENITENTIARY - Discharge Plan And Transition Orders Disposition: 03 SNF DC/Xfer Condition: Fair Allergies and Adverse Reactions: Allergies Allergy/AdvReac Type Severity Reaction Status Date / Time nitrofurantoin Allergy Rash Verified 10/21/18 09:29 macrocrystalline * [From Macrodantin] - SNF / PENITENTIARY Transition Orders Admit to (Facility): [facility] Under the care of (Name): Attending MD Discharge Diagnosis: (1) Lung abscess (2) Influenza A (3) Pleural effusion (4) Right leg pain (5) Failure to thrive syndrome, adult (6) Cachexia (7) Protein-calorie malnutrition, moderate (8) Stage II pressure ulcer of sacral region (9) Hypoxemia Secondary to lung abscess/pleural effusion (10) Anemia; Iron deficiency Medicare Certification Statement: I certify that Post Hospital [facility] care is medically necessary on a continuing basis for any of the conditions for which she/he is receiving care during hospitalization. Notify PCP of admission and forward orders to primary provider for signature. Weight on admission and: Weekly Other Notification Orders: Call PCP immediately if patient develops dyspnea, chest pain/tightness or edema. House Bowel Program: Yes Additional Bowel Program Orders: If no BM after 2 days, nurse may give M.O.M. 30ml PO PRN and/or ducolax Supp 1 RI and/or ADA 250mg P.O., and/or senna 1-2 tabs PO. On day 3 nurse may give repeat above order until residents constipation is resolved. Annual Influenza Vaccine (between Apr 22 and November 19): Yes Two-step PPD per [facility] [id number] or approved exception documents: No Oxygen Orders: To continue with oxygen to titrate to pulse ox above 90% Lab Tests or X-ray Orders: Chest x-ray to be done on 12/02/18 Medication Orders: PLEASE REFER TO THE DISCHARGE MEDICATION LIST. Insulin Orders?: No - Medications New Prescriptions: Nystatin 100,000 unit PO TID 10 Days #300 ml Zinc Oxide [Diaper Rash Ointment] 56 gm TP PRN PRN #56 g PRN Reason: sacral pressure ulcer - Diet Type: No added salt Texture: Regular Liquids: Thin May have monthly special meal: Yes - Therapies | Activity Therapy: Evaluation | Treat if indicated: PT Rehabilitation Potential: Maximize functional status, Return to independent living, Maintain present ADL Functional Activity: Activity as Tolerated Weight Bearing: Full Weight Assistance Devices: Walker Additional Instructions: Patient is to continue with current IV antibiotics for an date of 12/02/18. Patient has a stage II/III pressure ulcer to coccyx as it pertains to patient's poor nutritional intake and moderate to severe protein calorie deficiency malnutrition which has been addressed with optimizing medical and nutritional regimen. Remeron was added to regimen as well as placed on prophylactic Dennison catheter to prevent cross contamination to sacral/coccyx site. Patient will continue with physical therapy at [facility] and will improve patient's physical deconditioning with the addition of medical management optimizing nutritional management as well to improve on her pressure ulcer stage II to coccyx. Remeron and Megace were added to regimen. Patient will be seeing dietitian as well as addressing failure to thrive and anorexia as it pertains to patient's lung abscess with poor prognosis which Was electively treated with IV antibiotics alone without percutaneous or surgical drainage. Follow Up: PCP to follow-up in 2-3 weeks"
--- NOTE | 2018-10-26 15:06 | DISCHARGE SUMMARY ---
"Discharge Summary Admit Date: 10/21/18 Discharge Date: 10/26/18 Discharging Provider: Dr. Stevens Primary Care Provider: Ian Mar Code Status: Do Not Attempt Resuscitation Condition at Discharge: Fair Discharge Disposition: SNF DC/Xfer Discharge Facility Name: [facility] - DIAGNOSES Admission Diagnoses: 1. Severe sepsis with elevation of lactic acid 2. Lung abscess 3. Fungal infection of the upper respiratory tract. 4. Acute influenza A 5. Acute respiratory failure with hypoxia 6. Acute kidney injury 7. Elevation BNP with possible underlying systolic CHF Discharge Diagnoses with Status of Each Condition: (1) Lung abscess With parapneumonic effusion; Improved (2) Severe sepsis: Resolved (3) JOSUE; Resolved (4) Elevated BNP, secondary to pleural effusion, Echo with preserved ejection fraction (5) Influenza A; Resolving (6) Fungal infection of the upper respiratory tract deemed to be contaminant, Treated (7) Right leg pain, Secondary to arthritis (8) Failure to thrive syndrome, adult, Stable (9) Cachexia, Stable (10) Protein-calorie malnutrition, moderate, Stable (11) Stage II/III pressure ulcer of sacral region, Stable (12) Hypoxemia Secondary to lung abscess/pleural effusion, Improved (13) Anemia; Iron deficiency, Stable - HPI History of Present Illness: This is a 88-year-old white female with history of dementia who is DNR, which is limited medical care documented and signed pulse. The patient developed a cough, fever and chills and shortness of breath over the past 3 days. Because of worsening symptoms, she presents to the emergency department. In the emergency department found to have desaturation of 80% and audible wheezing and influenza swab showed an influenza A positive. The patient had been living at [facility] since the past 2 months, when she was placed here for rehabilitation after a hip fracture to the left femur that was repaired and now she has become a resident there. There has not been complaints of orthopnea, angina, palpitations, syncope, or GI/ symptoms. The patient gives a poor history because of her dementia, and also her shortness of breath. She is answering with 1 word answers, Broken sentences with tachypnea. Chest x-ray showed air-fluid levels at the right upper lobe consistent with lung abscess. Patient was subsequently placed on empiric IV antibiotics with Merrem. Sputum cultures showed Sophia with query of contaminant and placed on Diflucan as well as steroids. Echocardiogram did not show systolic CHF and with a preserved ejection fraction. - CONSULTS | PROCEDURES Procedures: 2D echo which showed a preserved ejection fraction PICC line with no complications on chest x-ray - HOSPITAL COURSE Hospital Course: Patient was medically managed with empiric IV antibiotics with Merrem for right upper lobe abscess and was optimized with respiratory treatments to include ne bulizers IV steroids pulmonary toileting and spirometry. Patient had Diflucan initially ordered for Sophia in sputum which was 3+ growth however likely a contaminant and subsequently discontinued. Patient received a total of 5 days of Tamiflu for influenza a positive with coinfection of bacterial lung abscess which she grew out gram-negative rods and gram-positive cocci in sputum. Patient's lactic acid subsequently improved as well as BNP which was deemed to be as a result of pleural effusion with a preserved ejection fraction on echo. Patient remained DNR and did not want any heroic or life saving measures and had displayed progressive weakness as this pertaining to patient's current medical conditions of abscess of the lung without significant hypoxemia which she did well on oxygen treatment. Patient was placed on multivitamins as well as calcium vitamin D and appetite was stimulated with Remeron and Megace. Patient had poor appetite and nutritional intake was up to 5% dietitian did get consulted for patient as her BMI was 15.5. Patient was educated and counseled on the importance of optimizing nutrition in the setting of lung abscess and the necessity of continuing IV antibiotics for a total of 6 weeks without percutaneous drainage or decortication for that matter. Patient start date was 10/21/18 on antibiotics and her end date would be 12/02/18 to continue with cefepi me and Flagyl. Patient had a successful placement of PICC line prior to discharge. Patient had Dennison catheter inserted prophylactically as patient was known to have a coccyx pressure ulcer stage II-III which did not appear to have necrotizing or necrotic borders. Patient had chronic hyponatremia with preserved electrolyte abnormalities presumably from spironolactone diuretics that were being administered due to pleural effusion and elevated BNP which did stabilize from [id number]. Upon discharge patient was hemodynamically stable and on 2 L nasal cannula 97% O2 saturation. Patient had oropharyngeal Oral thrush which was addressed with nystatin which will be dispensed for an additional 10 d ays. Patient will be also given prophylactic GI linda supplementation with lactobacillus and did not develop any suspicion for C. difficile or CDAD however did develop diarrhea as a result of possible Tamiflu side effects. - ALLERGIES Allergies/Adverse Reactions: Allergies Allergy/AdvReac Type Severity Reaction Status Date / Time nitrofurantoin Allergy Rash Verified 10/21/18 09:29 macrocrystalline * [From Macrodantin] - MEDICATIONS Home Medications: Ambulatory Orders Medication Instructions Recorded Confirmed Biotin 5,000 mcg PO DAILY 05/10/13 10/21/18 Cholecalciferol (Vitamin D3) 400 unit PO DAILY 05/10/13 10/21/18 [Vitamin D3] Vitamin B Complex [B Complex] 1 each PO DAILY 05/10/13 10/21/18 Vitamin E 400 unit PO DAILY 05/10/13 10/21/18 Aspirin EC [Ecotrin] 325 mg PO DAILY #10 tablet 09/02/18 10/21/18 Ferrous Sulfate 325 mg PO DAILY #15 tablet 09/02/18 10/21/18 Albuterol 2.5 mg INH Q4H PRN 10/21/18 10/21/18 Calcium Carbonate [Tums (Calcium 500 mg PO Q4-6H 10/21/18 10/21/18 Carbonate 500mg)] Carboxymethylcellulose Sodium 1 drops EACHEYE PRN PRN 10/21/18 10/21/18 [Refresh Tears] Melatonin 5 mg PO QPM 10/21/18 10/21/18 Acetaminophen [Tylenol] 650 mg PO Q4HR PRN tablet 10/26/18 Alendronate [Fosamax] 70 mg PO Q7D tablet 10/26/18 Cefepime 2 gm IV DAILY vial 10/26/18 Lactobacillus Rhamnosus GG 1 cap PO DAILY capsule 10/26/18 [Culturelle] Loperamide [Imodium] 2 mg PO QID PRN capsule 10/26/18 Mirtazapine [Remeron] 7.5 mg PO QPM tablet 10/26/18 Multivitamin W/Minerals [Theragran 1 tab PO DAILYWM tablet 10/26/18 M] Nystatin 100,000 unit PO TID 10 Days #300 ml 10/26/18 Pantoprazole [Protonix] 40 mg PO QDAC tablet 10/26/18 Polyethylene Glycol 3350 [Miralax] 17 gm PO DAILY PRN packet 10/26/18 Spironolactone [Aldactone] 12.5 mg PO DAILY tablet 10/26/18 Zinc Oxide [Diaper Rash Ointment] 56 gm TP PRN PRN #56 g 10/26/18 guaiFENesin [Mucinex] 600 mg PO BID tablet 10/26/18 - PHYSICAL EXAM AT DISCHARGE General Appearance: positive: No acute distress, Alert, Anxious, Other (Cachectic, thin, chronically ill-appearing) Eyes Bilateral: positive: Normal inspection, PERRL, EOMI ENT: positive: ENT inspection nml, Pharynx nml, No signs of dehydration Neck: positive: Nml inspection, Thyroid nml, No JVD, Trachea midline. negative: Thyromegaly, Carotid bruit, Swelling/bruising Respiratory: positive: Chest non-tender, No respiratory distress, Rales (Decreased breath sounds to the right versus the left with fine rales), Rhonchi Cardiovascular: positive: Regular rate & rhythm, No murmur, No gallop. negative: Irregularly irregular, JVD present, Gallop/S4 Peripheral Pulses: positive: 2+ Abdomen: positive: Non-tender, No organomegaly, Nml bowel sounds, No distention, Other (Scaphoid) Back: positive: Nml inspection Skin: positive: Color nml, No rash, Warm Extremities: positive: Non-tender, Full ROM, Nml appearance. negative: Pedal edema Neurologic/Psychiatric: positive: Oriented x3, CN's nml (2-12) - LABS Result Diagrams: 10/27/18 05:19 10/27/18 05:19 - SEPSIS Current Stage of Sepsis: Resolved Possible source of Sepsis: Pulmonary - QUALITY (Female Hip Fx Only) Was patient sent home on osteoporosis medication?: No - FOLLOW UP Follow Up: To be followed with PCP in 2-3 weeks - TIME SPENT Time Spent in Discharge (Minutes): 35"
--- NOTE | 2018-10-26 16:13 | MISCELLANEOUS PROVIDER NOTE ---
Miscellaneous Provider Note - - Note: Subjective: Patient Is feeling weakness as a result of likely Remeron and she conveys this by saying that she needs to gain more energy. Patient currently is taking about 5% of her diet and she says that her appetite is poor. Patient is currently awaiting placement to [facility] to continue with IV antibiotics for total 6 weeks Objective: Vital signs are stable. Afebrile, heart rate 83, blood pressure 123/54, RR 18, 97% on 2 L nasal cannula. General: Chronically ill-appearing, thin and cachectic with physical deconditioning HEENT, PERRLA LLA, EOMI BL, positive erythematous tongue with scraping of whitish lesions consistent with oral thrush Neck, no JVD CV/lungs: RRR, no gallops no clicks no murmurs. Decreased breath sounds bibasilarly with mild expiratory rhonchi right more than left Abdomen: Soft nontender nondistended positive bowel sounds all quadrants Extremities/skin no edema clubbing or cyanosis next Neuro: Grossly intact Labs: reviewed Imaging studies: Reviewed next Assessment and plan: (1) Lung abscess Impression: Patient will have assessment on IV antibiotics to be continued over at [facility],Status post PICC line Insertion with confirmation of chest x-ray with no pneumothorax. [facility] is likely to take patient on IVcefepime/Flagyl. However, clinical notes have not been reviewed by approving coordinator at location and therefore patient will likely not be discharged today. Qualifiers: Pulmonary abscess pneumonia presence: with pneumonia Laterality: right Lung location: upper lobe of lung Qualified Code(s): J85.1 - Abscess of lung with pneumonia (2) Influenza A Impression: Patient on day 5 of Tamiflu to Be finished with regimen today. (3) Pleural effusion Impression: Patient currently on Aldactone to minimize pleural effusion while at the same time sparing patient's potassium which has improved. (4) Right leg pain Impression: Patient's right leg pain has improved and patient is ambulating approximately 15 feet with physical therapy moderate assist is noted. (5) Failure to thrive syndrome, adult Impression: We will attempt to optimize medical management as well as nutritional intake. Currently on Megace and low-dose Remeron. (6) Cachexia Impression: Dietitian consultation placed for patient's poor nutritional intake as it relates to patient's medical condition. Optimize medical and nutritional management. On low-dose Remeron as well as Megace. (7) Protein-calorie malnutrition, moderate Impression: Moderate to severe protein and calorie deficiency malnutrition with a BMI 15.7 kg/m, patient with poor nutritional intake and on low-dose Remeron and Megace to optimize medical and nutritional management. Dietitian will be consulted for this. (8) Stage II pressure ulcer of sacral region Impression: Likely as a result of poor nutritional intake and direct pressure over bony protuberance and coccyx. Mepilex to bony protuberance along with frequent turning and offloading to be followed by nursing care. Dennison catheter has been placed prophylactically to avoid further cross contamination. Diarrhea minimized as bowel care protocol has been changed to as needed. (9) Hypoxemia Secondary to pleural effusion and lung abscess Impression: Patient's oxygen requirement currently at 2 L nasal cannula likely will be continued at [facility] (10) Anemia Impression: Continue with ferrous sulfate Qualifiers: Anemia type: iron deficiency Iron deficiency anemia type: inadequate dietary iron intake Qualified Code(s): D50.8 - Other iron deficiency anemias
--- NOTE | 2018-10-26 16:16 | XRAY Report ---
Reason: new picc line placement Procedure Date: 10/26/2018 Accession Number: [id number] / [id number] Procedure: XR - Chest for Line Placement CPT Code: FULL RESULT: EXAM: CHEST RADIOGRAPHY EXAM DATE: 10/26/2018 04:05 PM. CLINICAL HISTORY: New picc line placement. COMPARISON: CHEST 1 VIEW 10/23/2018 7:16 AM. TECHNIQUE: Semi-upright AP view. FINDINGS: Lungs/Pleura: Mild pleural thickening laterally and superiorly in the upper right chest. Small bilateral pleural effusions, as before. Decreased coarsening of diffuse lung markings. No interstitial abnormality. Mediastinum: Within exam limitations, the cardiomediastinal contour is normal. Mild aortic arch calcification. Left upper extremity PICC with its tip at the superior cavoatrial junction. Other: None. IMPRESSION: New left upper extremity PICC with its tip at the superior cavoatrial junction. RADIA
--- NOTE | 2018-10-26 16:47 | ANESTHESIA PROCEDURE NOTE ---
Anesth Central Line Template - Central Line Central Line Preparation: Consent Obtained, Time out completed, Ultrasound used, Sterile prep and drape Central line type: Other (PICC) Central line catheter tip site resides: Cavoatrial junction Central line aftercare: Secured, No complications, Bundle checklist complete, Pt tolerated well Other Info/Details: Requested by hospitalist to place PICC line for [facility] antibiotic therapy. The patient's right arm was prepped with chloroprep and timeout completed. Full drapes applied with full sterile gown, gloves and mask. The right arm insertion site was anesthetized with 3ml 1% lidocaine. The right bascilic vein was visualized with ultrasound and a 20 G needle inserted. The vein was accessed but was unable to advance wire. Moved to Left arm. Left arm prepped with chloroprep and localized using 2 ml 1% lidocaine. Left bascilic vein visualized under ultrasound and accessed with 20G needle. Wire advanced with ease. Sheath inserted and wire removed. A 4Fr catheter trimmed to 43cm was inserted into sheath and advanced with ease. I was unable to get 3CG to recognize the guidance wire. Sheath removed and catheter hubbed at the skin. Line secured and covered with opsite. Chest xray shows tip in the cavoatrial junction. Line aspirates blood and flushes with ease.
[2018-10-26] MEDS: SODIUM CHLORIDE FLUSH 0.9% 10 ML SYRINGE IVP PRN (17:55)
[2018-10-26] MEDS ORDERED: MIRTAZAPINE 15 MG TABLET PO SCH (21:00)
[2018-10-27] MEDS: SODIUM CHLORIDE FLUSH 0.9% 10 ML SYRINGE IVP SCH ×2 (01:00→07:33)
[2018-10-27] MEDS: SALIVA STIMULANT SPRAY 44.3 ML BOTTLE PO PRN (05:47)
[2018-10-27 06:06] LABS: ALBUMIN 2.8 g/dL (3.2-5.5); CALCIUM 8.9 mg/dL (8.5-10.3); CREATININE 0.9 mg/dL (0.4-1.0); PHOSPHORUS 2.3 mg/dL (2.5-4.6)
[2018-10-27 06:11] LABS: BASOPHILS % (AUTO) 0.2 %; EOSINOPHILS % (AUTO) 0.9 %; HGB - HEMOGLOBIN 11.2 g/dL (12.0-16.0); LYMPHOCYTES % (AUTO) 22.3 %; MEAN CORPUSCULAR HEMOGLOBIN 27.2 pg (27.0-31.0); MEAN CORPUSCULAR HGB CONC 32.2 g/dL (32.0-36.0); MEAN CORPUSCULAR VOLUME 84.4 fL (81.0-99.0); MEAN PLATELET VOLUME 7.8 fL (7.9-10.8); NEUTROPHILS % (AUTO) 61.6 %; PLT - PLATELET COUNT 410 10^3/uL (130-450); RED BLOOD COUNT 4.13 10^6/uL (4.20-5.40); RED CELL DISTRIBUTION WIDTH 17.8 % (12.0-15.0); WHITE BLOOD COUNT 12.1 x10^3/uL (4.8-10.8)
[2018-10-27 06:18] LABS: ABNORMAL LYMPHS % (MANUAL) 0 %
[2018-10-27 06:41] LABS: BAND NEUTROPHILS % (MANUAL) 3 %; DIFFERENTIAL COMMENT MANUAL DIFFERENTIAL; EOSINOPHILS # (MANUAL) 0.1 10^3/uL (0-0.7); LYMPHOCYTES # (MANUAL) 3.1 10^3/uL (1.5-3.5); LYMPHOCYTES % (MANUAL) 26 %; MONOCYTES # (MANUAL) 1.6 10^3/uL (0.0-1.0); NEUTROPHILS # (MANUAL) 7.3 10^3/uL (1.5-6.6); NEUTROPHILS % (MANUAL) 57 %; PLATELET ESTIMATE, MANUAL NORMAL (130-450,000) (NORMAL); RBC MORPHOLOGY (MULTIPLE) NORMAL APPEARANCE (NORMAL)
[2018-10-27] MEDS: PANTOPRAZOLE 40 MG TABLET PO SCH (06:55)
[2018-10-27] MEDS: metroNIDAZOLE 500 MG/100 ML 500 MG/100 ML BAG IV SCH (07:32)
[2018-10-27] MEDS: MEGESTROL 400 MG/10 ML UDC PO SCH (08:00)
[2018-10-27] MEDS: SACCHAROMYCES BOULARDII 250 MG CAPSULE PO SCH (08:00)
[2018-10-27] MEDS: NYSTATIN 500000 UNITS/5 ML UDC PO SCH ×2 (08:00→13:13)
[2018-10-27] MEDS: guaiFENesin 600 MG TABLET PO SCH (08:00)
[2018-10-27] MEDS: MULTIVITAMIN W/MINERALS TABLET PO SCH (08:00)
[2018-10-27] MEDS: LACTOBACILLUS RHAMNOSUS GG CAPSULE PO SCH (08:00)
[2018-10-27] MEDS: FERROUS GLUCONATE 324 MG TABLET PO SCH (08:00)
[2018-10-27] MEDS: SPIRONOLACTONE 25 MG TABLET PO SCH (08:02)
[2018-10-27] MEDS: DICLOFENAC 1% TOP SCH ×2 (08:02→12:05)
[2018-10-27 08:07] VITALS: BP 131/54
[2018-10-27] MEDS: CEFEPIME 2 GM in SODIUM CHLORIDE 0.9% MINIBAG 100 ML IV SCH (09:04)
[2018-10-27] MEDS: CALCIUM CARB (OYSTER SHELL) 500 MG TABLET PO SCH (11:26)
== END 2018-10-27 14:00 | DRG 871 ==
LOC: EDUNIT# → ED 09:13 → MS2 12:26
PROVIDERS: ADMIT Internal Medicine; ATTEND Family Medicine
PROC: 02HV33Z Insertion of Infusion Device into Superior Vena Cava, Percutaneous Approach (ICD-10-PCS; principal; 2018-10-26)
DX: A41.89 Other specified sepsis (principal); L89.153 Pressure ulcer of sacral region, stage 3; R06.01 Orthopnea; J10.00 Influenza due to other identified influenza virus with unspecified type of pneumonia; J85.1 Abscess of lung with pneumonia; N17.9 Acute kidney failure, unspecified; R64 Cachexia; E44.0 Moderate protein-calorie malnutrition; Z68.1 Body mass index [BMI] 19.9 or less, adult; E87.1 Hypo-osmolality and hyponatremia; B37.0 Candidal stomatitis; J91.8 Pleural effusion in other conditions classified elsewhere; K52.1 Toxic gastroenteritis and colitis; T37.5X5A Adverse effect of antiviral drugs, initial encounter; R62.7 Adult failure to thrive; R32 Unspecified urinary incontinence; M16.11 Unilateral primary osteoarthritis, right hip; M17.11 Unilateral primary osteoarthritis, right knee; R09.02 Hypoxemia; F03.90 Unspecified dementia, unspecified severity, without behavioral disturbance, psychotic disturbance, mood disturbance, and anxiety; I12.9 Hypertensive chronic kidney disease with stage 1 through stage 4 chronic kidney disease, or unspecified chronic kidney disease; N18.3 Chronic kidney disease, stage 3 (moderate); D50.9 Iron deficiency anemia, unspecified; R35.0 Frequency of micturition; B96.89 Other specified bacterial agents as the cause of diseases classified elsewhere; M41.9 Scoliosis, unspecified; R74.0 Nonspecific elevation of levels of transaminase and lactic acid dehydrogenase [LDH]; M81.0 Age-related osteoporosis without current pathological fracture; H91.90 Unspecified hearing loss, unspecified ear; H54.7 Unspecified visual loss; L98.9 Disorder of the skin and subcutaneous tissue, unspecified; Z51.5 Encounter for palliative care; Z96.649 Presence of unspecified artificial hip joint; Y92.230 Patient room in hospital as the place of occurrence of the external cause; Z66 Do not resuscitate; Z79.82 Long term (current) use of aspirin; Z79.51 Long term (current) use of inhaled steroids; Z87.01 Personal history of pneumonia (recurrent)
CPT/HCPCS: 36415; 71045; 73552; 80048; 80053; 80069; 80076; 81001; 82272; 82607; 82652; 82746; 83540; 83605; 83690; 83735; 83880; 84466; 84630; 85025; 87040; 87070; 87205; 87275; 87276; 92526; 92610; 93308; 94640; 96361; 96365; 96367; 96375; 97110; 97161; 97165; 97530; 99222; 99232; 99284; A9270; C1751; J0131; J2185; 81003; 87086

== ENCOUNTER 2018-10-31 15:19 | Outpatient (CLI) | payer OTHER ==
--- NOTE | 2018-10-31 17:00 | CT Report ---
Reason: PNEUMONIA, ABNORMAL LUNG LESIONS Procedure Date: 10/31/2018 Accession Number: [id number] / [id number] Procedure: CT - CHEST WO CPT Code: FULL RESULT: EXAM: CT CHEST EXAM DATE: 10/31/2018 03:37 PM. CLINICAL HISTORY: PNEUMONIA, ABNORMAL LUNG LESIONS. COMPARISONS: CHEST FOR LINE PLACEMENT 10/26/2018 3:50 PM CHEST 2 VIEW PA/LAT 05/10/2013 11:25 AM CHEST 1 VIEW 08/30/2018 7:26 AM. TECHNIQUE: Routine helical CT imaging was performed through the chest. IV contrast: None. Reconstructions: Coronal and sagittal. In accordance with CT protocol optimization, one or more of the following dose reduction techniques were utilized for this exam: automated exposure control, adjustment of mA and/or KV based on patient size, or use of iterative reconstructive technique. FINDINGS: Lungs/Pleura: There is moderate cylindrical bronchiectasis greater in the right lung than the left. There are peripheral blebs and/or bulla in the posterior superior right hemithorax/upper lobe associated with cicatricial changes and focal pleural parenchymal thickening. Smaller blebs and associated pleural thickening are noted peripherally in the right lower hemithorax. There are no air-fluid levels within the cystic airspaces, and no evidence of parenchymal abscess. No free pleural fluid. No extra ventilatory air. Findings on chest CT today are similar to findings noted on prior chest x-ray of 2012. Focal pleural parenchymal scarring without bleb formation is noted in the superior segment of the left lower lobe. There are scattered tree-in-bud parenchymal opacities greater in the right lung than the left most likely sequela of recent infection. No confluent airspace disease or groundglass opacities. Mediastinum: There is asymmetric enlargement of the left thyroid lobe most likely due to goiter. Atherosclerotic ectasia is noted of the aorta. Heart and great vessels are otherwise within expected limits on noncontrast images. No mediastinal or hilar adenopathy appreciated. Bones: Within expected limits for age. Visualized Abdomen: Unremarkable. Other: Operative changes of prior right mastectomy and axillary surgery. IMPRESSION: 1. Cylindrical bronchiectasis, peripheral bleb and bulla formation, pleural parenchymal scarring predominately involving the right upper lung as described. Favor chronic sequela of prior infection or inflammation. History of right mastectomy is acknowledged and would correlate with prior radiation therapy. 2. No evidence of parenchymal abscess. No significant effusion. 3. Scattered tree-in-bud opacities within the lungs likely sequela of recent infection. Appearance of the lungs is improved compared to recent in-patient chest x-rays. 4. Asymmetric enlargement of the left thyroid gland, favor goiter. RADIA
== END 2018-10-31 15:20 | disposition home or self-care (01) ==
LOC: DI 15:19
PROVIDERS: ATTEND Family Medicine
DX: J47.9 Bronchiectasis, uncomplicated (principal); E04.9 Nontoxic goiter, unspecified
CPT/HCPCS: 71250

== ENCOUNTER 2018-11-03 13:05 | Outpatient (CLI) | payer OTHER ==
--- NOTE | 2018-11-03 18:43 | CONSULTATION NOTE ---
Palliative Care Follow Up - Referral Referring Provider: Dr Coffman / Dr Mar Time of Visit: Maggie 11/03/2018. 13:05 - 14:15 Referral setting: Shelter Facility ([facility]) Referral Reason: General weakness/functional decline/adult FTT - Information Sources Records reviewed: RN notes reviewed, Previous records reviewed History/Review of Systems obtained from: Patient, Family, Nursing, Other (Regulatory Associate; SNF Solar Installation Foreman) Exam limitations: Clinical condition (weakness, confusion) - History of Present Illness Update Brief HPI Update: 88-year-old frail, cachectic woman residing at [facility] for rehab since August 2018 S/P L femoral neck fracture due to a fall. She was subsequently hospital ized 10/21/2018 at [facility] for increasing confusion, cough, shortness of breath and positive for influenza A. She discharged back to [facility] 10/27/2018. Medical History: L femoral neck fracture August 2018; mild dementia/cognitive deficit; bronchiectasis; pleural effusion; osteoporosis; protein calorie malnutrition; adult FTT; CKD; HTN; leukocytosis, thrombophilia; h/o breast cancer. Patient was living independently at home prior to her fall/femur fracture in August. She was living at [facility] for rehab, was starting to walk again, and her goal was to get strong enough to go back home. But with her hospitalization for flu, and subsequent steep decline in strength and now unable to ambulate, she started to realize that may not be possible. At the hospital she initially diagnosed with a lung abscess, and started on 6 weeks of IV antibiotics. A chest CT confirmed it was not an abscess but bronchiectasis. So her last day of IV antibiotics is 11/04 and they will remove the PICC line. The patient has 20 years of lung issues, issues with bladder prolapse, chronic cough and cachexia for years. Her son reports she's never weighed more than 115 lbs in her life, and she's been mostly in the 80s and 90s lbs for years. The patient is extremely weak and cachectic. Nursing reports there has been times she hasn't had the strength to turn her head on the bed. She was aphasic, but is now verbal, though extremely weak-voiced and slow, and it's difficult to hear her. She is still doing some PT therapy. Regulatory Associate reports she no longer takes solid foods. She'll have a bite or two and be satiated. The relay motorman been spending 90 minutes at a time regularly hydrating her, and that she vacillates between critical dehydration and improvement. During my visit she was quite weak and could barely speak. After my visit, the relay motorman spent time with her, getting her hydrated and she perks up and is able to speak more clearly. Regulatory Associate has said the patient's goal has been to see her son (he lives in [place]) at least one more time, and keeping her hydrated is helping her stay well enough to do so. When I walked in her room today she asked if I was the group social worker. She immediately tells me that she is worried about finances, about paying for being in the facility. She is articulate but very confused, repeating her questions. She asks what date it is several times. She says "I want desperately to " and similar thoughts numerous times. Part of that appears to be her confusion that her son has . She asks me about this repeatedly She thinks he has in the plane crash (the news has been on about the [place] plane crash) I offer reassurance that he is not and I will be speaking with him today. Her speech is very, very slow, very weak and labored. She's confused, but engages with me. Social History - Living Situation Living arrangement: prison ([facility]) Living Situation: With caregiver(s) Support System: Son/DPMARCOS Li, home [phone], mobile [phone], lives in [place] She has 3 elderly women friends who have been helping her while she lived at home, They have also been helping while here. One, Hilda Cook, has been helping out with her cats, and has recently sent checkbook and papers to her son. [facility] SW says Hilda and the other women don't necessarily get along with each other, and also they are burning out and starting to step away from hands' on involvement. Medications/Allergies - Medications Home Medications: Ambulatory Orders Medication Instructions Recorded Confirmed Biotin 5,000 mcg PO DAILY 05/10/13 10/31/18 Cholecalciferol (Vitamin D3) 400 unit PO DAILY 05/10/13 10/31/18 [Vitamin D3] Vitamin B Complex [B Complex] 1 each PO DAILY 05/10/13 10/31/18 Vitamin E 400 unit PO DAILY 05/10/13 10/31/18 Aspirin EC [Ecotrin] 325 mg PO DAILY #10 tablet 09/02/18 10/31/18 Ferrous Sulfate 325 mg PO DAILY #15 tablet 09/02/18 10/31/18 Albuterol 2.5 mg INH Q4H PRN 10/21/18 10/31/18 Calcium Carbonate [Tums (Calcium 500 mg PO Q4-6H 10/21/18 10/31/18 Carbonate 500mg)] Carboxymethylcellulose Sodium 1 drops EACHEYE PRN PRN 10/21/18 10/31/18 [Refresh Tears] Melatonin 5 mg PO QPM 10/21/18 10/31/18 Acetaminophen [Tylenol] 650 mg PO Q4HR PRN tablet 10/26/18 10/31/18 Alendronate [Fosamax] 70 mg PO Q7D tablet 10/26/18 10/31/18 Cefepime 2 gm IV DAILY vial 10/26/18 10/31/18 Lactobacillus Rhamnosus GG 1 cap PO DAILY capsule 10/26/18 10/31/18 [Culturelle] Loperamide [Imodium] 2 mg PO QID PRN capsule 10/26/18 10/31/18 Mirtazapine [Remeron] 7.5 mg PO QPM tablet 10/26/18 10/31/18 Multivitamin W/Minerals [Theragran 1 tab PO DAILYWM tablet 10/26/18 10/31/18 M] Nystatin 100,000 unit PO TID 10 Days #300 ml 10/26/18 10/31/18 Pantoprazole [Protonix] 40 mg PO QDAC tablet 10/26/18 10/31/18 Polyethylene Glycol 3350 [Miralax] 17 gm PO DAILY PRN packet 10/26/18 10/31/18 Spironolactone [Aldactone] 12.5 mg PO DAILY tablet 10/26/18 10/31/18 Zinc Oxide [Diaper Rash Ointment] 56 gm TP PRN PRN #56 g 10/26/18 10/31/18 guaiFENesin [Mucinex] 600 mg PO BID tablet 10/26/18 10/31/18 - Allergies Allergies/Adverse Reactions: Allergies Allergy/AdvReac Type Severity Reaction Status Date / Time nitrofurantoin Allergy Rash Verified 10/21/18 09:29 macrocrystalline * [From Macrodantin] Review of Systems - Constitutional Constitutional: reports: Fatigue, Weakness, Poor appetite, Weight loss (77.6 lbs 3/11. 5% decrease from 10/11/18 which was 82.2 lbs. BMI 13.3 per NIH calculator) - Eyes Eyes: reports: Vision loss, Corrective lenses - Ears, Nose & Throat Ears, Nose & Throat: reports: Hearing loss, Dry mouth - Respiratory Respiratory: reports: Cough, SOB with exertion. denies: SOB at rest - Gastrointestinal Gastrointestinal: reports: Poor appetite, Early satiety. denies: Constipation - Musculoskeletal Musculoskeletal: reports: Stiffness, Limited range of motion, Muscle weakness, Assistive devices (ambulatory with walker prior to hospitalization), Transfer issues - Integumentary Integumentary: reports: Dryness, Other (stage II decub on coccyx) - Neurological Neurological: reports: General weakness, Memory problems (mild) - Psychiatric Psychiatric: reports: Depression, Anxiety, Delusions (has delusions that people important to her have : her son; the relay motorman) - Hematologic/Lymphatic Hematologic/Lymphatic: reports: Recurrent infections (flu/pneumonia recently) Physical Exam - Vital Signs Temperature: 96.5 F Pulse Rate: 63 O2 Saturation: 95 (room air) Blood Pressure: 105/52 (wrist cuff) - Physical Exam General Appearance: positive: Mild distress, Lethargic, Other (weak, remains stationary in bed) Eyes Bilateral: positive: Normal inspection Neck: positive: Trachea midline Cardiovascular: positive: Irregular Respiratory: positive: No respiratory distress, Diminished throughout Skin: positive: Pallor, Dryness Extremities: positive: No pedal edema Neurologic/Psychiatric: positive: Mood/affect nml, Disoriented to time, Weakness Palliative Care - POLST Patient has POLST: Yes POLST Status: DNR, Selective Treatment Pain: Location (coccyx wound) Tiredness/Fatigue: Severe (7-10) Drowsiness/Sedation: None Anxiety: Moderate (4-6) Anorexia: Severe (7-10) Performance Status: non-ambulatory bedbound, general overall, profound weakness after hospital verbal ability waxes and wanes chronic anorexia weight loss 77 lbs - Palliative Care Discussion: Regulatory Associate speaks frequently with the patient about her prognosis and the patient has accepted that she may . She told me several times today she wants to and is "desperate" to do so. Once she understood that her son wasn't (from speaking with the relay motorman after our visit) she decided she was going to get better. The relay motorman cautioned her that "she's not out of the shields yet," and the patient's response was that she was OK either way; living or dying. The relay motorman spends quite a lot of time with the patient, and has observed her decline since August. Her concern is that the patient bbe able to see her son at least one more time, which is her goal. She's hardly eating and not taking much (or any) solids; and her hydration status moves in and out of "criticality." The relay motorman plans to come in on Tuesday and Tuesday to check on her. I spoke with the son on the phone. The SNF had a care conference over the phone with him 3 days ago. He understood that his mother was weaker and she would not be able to return home. We talked about her significant decline since leaving the hospital and issues with keeping hydrated, not taking any more solid foods, weight loss, and that she may be declining faster than they had thought. He had planned to come out November 23, I suggested he come sooner if he could arrange it at work. He said he'll speak with his solar energy installation manager and try to come out Tuesday (in 3 days). I did introduce the idea of end of life, and Hospice as a service; (he thought it was a building. I said it's a kind of special service; and he retorted that in [place], Hospice means a building). He asked about whether the patient still had her PICC line in (she does, but it's being removed soon), and that his had had one for enteral feeding. I explained his mother's POLST specified no tube feeding, and also spoke about burdens and drawbacks of medically assisted nutrition by tube, prolonging suffering, etc. He agreed that since his mother's POLST said no tube feeding, that it was out of the question. Impression and Recommendations - Palliative Care Impression: 88-year-old frail, cachectic woman residing at [facility] after breaking hip in August. Two weeks ago she was rehospitalized for flu and respiratory issues, and has declined significantly since then, eating and drinking very little, losing weight, and unable to ambulate. Son is trying to rearrange his schedule to fly out early next week (Tuesday) for a visit. Palliative Care will provide support with goals of care and transitioning to Hospice when indicated. Recommendations/Counseling Done: Frailty, general weakness: Significant decline and weakness starting with recent hip fracture, followed by hospitalization for flu and bronchiectasis (diagnosed by recent chest CT). Her chronic anorexia has worsened with poor intake and further weight loss, she exhibits depression, anxiety and is bedbound. Her previous goal of transitioning back home is no longer an option. Advance care planning: POLST DNR, selective treatment, no antibiotics, no medically assisted nutrition by tube. Given patient's significant decline, and her hope of being able to see her son one more time, he is trying to arrange to fly out early next week. This will provide an opportunity to discuss goals of care and transitioning to hospice if appropriate. Patient is currently on Skilled benefits at [facility]. She is already signed on with [facility]; this was confirmed today by BART Root Director of [facility]. So the patient can transition to LTC when appropriate. Patient has been highly anxious about her finances. Time Spent: 70 minutes were spent with more than 50% of the time spent on counseling, education, providing anticipatory guidance, and coordination of care with SNF staff and DPOA.
== END 2018-11-03 13:06 | disposition home or self-care (01) ==
LOC: PC 13:05
PROVIDERS: ATTEND Nurse Practitioner
DX: Z51.5 Encounter for palliative care (principal); R53.1 Weakness; R62.7 Adult failure to thrive; F03.90 Unspecified dementia, unspecified severity, without behavioral disturbance, psychotic disturbance, mood disturbance, and anxiety; I12.9 Hypertensive chronic kidney disease with stage 1 through stage 4 chronic kidney disease, or unspecified chronic kidney disease; N18.9 Chronic kidney disease, unspecified; J47.9 Bronchiectasis, uncomplicated; E46 Unspecified protein-calorie malnutrition; L89.152 Pressure ulcer of sacral region, stage 2; F32.9 Major depressive disorder, single episode, unspecified; F41.9 Anxiety disorder, unspecified; Z68.1 Body mass index [BMI] 19.9 or less, adult; Z66 Do not resuscitate; Z74.01 Bed confinement status; Z87.81 Personal history of (healed) traumatic fracture
CPT/HCPCS: 99310

== ENCOUNTER 2018-11-07 13:15 | Outpatient (CLI) | payer MEDICARE, MEDICAID ==
--- NOTE | 2018-11-07 19:41 | CONSULTATION NOTE ---
Palliative Care Follow Up - Referral Referring Provider: Dr Mich Mar Time of Visit: Ani 11/07/2018. 13:15 - 13:45 Referral setting: [facility] ([facility]) - Information Sources Records reviewed: Previous records reviewed History/Review of Systems obtained from: Patient, Family, Nursing, Other (Speech Therapist, Physical Therapist, SW Director, Director Imaging) Exam limitations: Clinical condition (altered mental status; lethargic; end of life) - History of Present Illness Update Brief HPI Update: 88-year-old frail, cachectic woman residing at [facility] for rehab since August 2018 S/P L femoral neck fracture due to a fall. She was subsequently hospitalized 10/21/2018 at [facility] for increasing confusion, cough, shortness of breath and positive for influenza A. She discharged back to [facility] 10/27/2018. Medical History: L femoral neck fracture August 2018; mild dementia/cognitive deficit; bronchiectasis; pleural effusion; osteoporosis; protein calorie malnutrition; adult FTT; CKD; HTN; leukocytosis, thrombophilia; h/o breast cancer. Cachectic, frail patient is profoundly weak with steady decline, with almost no oral intake. She is able to open her eyes, recognizes me and smiles. Her son, Craig, and grandchild, Austin are at bedside. Patient recognizes them, is very happy they are here. She had thanked the CLASSROOM TECHNOLOGY TECHNICIAN for staying with her and helping her stay strong enough to see her son Craig once more. Son/DPOA Craig arrived today with his 15-year-old child, Austin. Craig is visibly quite upset and tearful. Austin had earlier told the CLASSROOM TECHNOLOGY TECHNICIAN that he came because"I had to be here to make sure my dad doesn't get hurt." Austin is 15 years old. Patient is still on skilled service. PT came by and said they're phasing this out over the next few days. He has been having the patient sit up and get into the wheelchair for short periods. CLASSROOM TECHNOLOGY TECHNICIAN provided a pizza for the patient at her requests. She had about two bites. Medications/Allergies - Medications Home Medications: Ambulatory Orders Medication Instructions Recorded Confirmed Biotin 5,000 mcg PO DAILY 05/10/13 10/31/18 Cholecalciferol (Vitamin D3) 400 unit PO DAILY 05/10/13 10/31/18 [Vitamin D3] Vitamin B Complex [B Complex] 1 each PO DAILY 05/10/13 10/31/18 Vitamin E 400 unit PO DAILY 05/10/13 10/31/18 Aspirin EC [Ecotrin] 325 mg PO DAILY #10 tablet 09/02/18 10/31/18 Ferrous Sulfate 325 mg PO DAILY #15 tablet 09/02/18 10/31/18 Albuterol 2.5 mg INH Q4H PRN 10/21/18 10/31/18 Calcium Carbonate [Tums (Calcium 500 mg PO Q4-6H 10/21/18 10/31/18 Carbonate 500mg)] Carboxymethylcellulose Sodium 1 drops EACHEYE PRN PRN 10/21/18 10/31/18 [Refresh Tears] Melatonin 5 mg PO QPM 10/21/18 10/31/18 Acetaminophen [Tylenol] 650 mg PO Q4HR PRN tablet 10/26/18 10/31/18 Alendronate [Fosamax] 70 mg PO Q7D tablet 10/26/18 10/31/18 Cefepime 2 gm IV DAILY vial 10/26/18 10/31/18 Lactobacillus Rhamnosus GG 1 cap PO DAILY capsule 10/26/18 10/31/18 [Culturelle] Loperamide [Imodium] 2 mg PO QID PRN capsule 10/26/18 10/31/18 Mirtazapine [Remeron] 7.5 mg PO QPM tablet 10/26/18 10/31/18 Multivitamin W/Minerals [Theragran 1 tab PO DAILYWM tablet 10/26/18 10/31/18 M] Nystatin 100,000 unit PO TID 10 Days #300 ml 10/26/18 10/31/18 Pantoprazole [Protonix] 40 mg PO QDAC tablet 10/26/18 10/31/18 Polyethylene Glycol 3350 [Miralax] 17 gm PO DAILY PRN packet 10/26/18 10/31/18 Spironolactone [Aldactone] 12.5 mg PO DAILY tablet 10/26/18 10/31/18 Zinc Oxide [Diaper Rash Ointment] 56 gm TP PRN PRN #56 g 10/26/18 10/31/18 guaiFENesin [Mucinex] 600 mg PO BID tablet 10/26/18 10/31/18 - Allergies Allergies/Adverse Reactions: Allergies Allergy/AdvReac Type Severity Reaction Status Date / Time nitrofurantoin Allergy Rash Verified 10/21/18 09:29 macrocrystalline * [From Macrodantin] Palliative Care Pain: No pain Tiredness/Fatigue: Severe (7-10) Drowsiness/Sedation: Severe (7-10) Anorexia: Severe (7-10) Sleep: Variable sleep pattern - Palliative Care Discussion: Craig, the son, flew out here today to be with his mother, after our conversation on Tuesday about bringing forward his planned November 23 trip by about 3 weeks. Patient has said to the CLASSROOM TECHNOLOGY TECHNICIAN, with whom she is close, that she tinks she is going on "her trip" very soon and wanted to see her son before she did. Craig is quite emotional and tearful; with his mother's profound decline it is clear to him that his mother is very near the end-of-life. He doesn't want to transition her to Hospice now; he believes she will quickly and does not want any changes at this time. He also declined palliative care scrap preparer service. He is overwhelmed and wants to spend quiet time with his mother. We did discuss that currently she in the facility under her skilled benefit; but she could transition to Long-term care as a medicaid patient prior to being admitted to Hospice, and [id number] would be covered by Medicaid. Hospice, and her medicines and medical care is covered by Medicare's Hospice benefit. Impression and Recommendations - Palliative Care Impression: 88-year-old frail, cachectic woman at end-of-life stage. Son and grandchild have just flown in from [place] today. Family chooses to not transition to Hospice at the present time. Comfort morphine has been started by Director Imaging. Palliative -Care available to provide support for family and monitoring during end-of life. Recommendations/Counseling Done: Frailty, general weakness: Patient in end of life stage, but not yet active dying. Profound weakness, bedbound, almost no oral intake, cachexia. Advance care planning: POLST DNR, selective treatment, no antibiotics, no medically assisted nutrition by tube. Her son and grandchild just flew in from [place] today. Son/DPOA declines the Hospice benefit at this time but does want comfort care and appropriate medications. Morphine solution started by pediatric medical assistant. Lorazepam not indicated currently. Patient has no pain or agitation. Medications to discontinue: Vit D3, Vit B complex, Vit E, aspirin, ferrous sulfate, calcium carbonate, mirtazapine, lactobacillus, loperamide, multivitamin, pantoprazole, guaifenesin, spironolactone, biotin. Time Spent: 30 minutes were spent with more than 50% of the time spent on counseling, education, providing anticipatory guidance, and coordination of care with SNF staff and family.
== END 2018-11-07 13:16 | disposition home or self-care (01) ==
LOC: PC 13:15
PROVIDERS: ATTEND Nurse Practitioner
DX: Z51.5 Encounter for palliative care (principal); R53.1 Weakness; E46 Unspecified protein-calorie malnutrition; F03.90 Unspecified dementia, unspecified severity, without behavioral disturbance, psychotic disturbance, mood disturbance, and anxiety; M80.052D Age-related osteoporosis with current pathological fracture, left femur, subsequent encounter for fracture with routine healing; I12.9 Hypertensive chronic kidney disease with stage 1 through stage 4 chronic kidney disease, or unspecified chronic kidney disease; N18.9 Chronic kidney disease, unspecified; Z74.01 Bed confinement status; Z66 Do not resuscitate; Z87.09 Personal history of other diseases of the respiratory system; Z79.899 Other long term (current) drug therapy
CPT/HCPCS: 99309